=== PATIENT | female | born 1960 | race Two or more races ===

== ENCOUNTER 2023-11-19 19:31 | Inpatient (IN) | payer OTHER, SELFPAY ==
--- NOTE | ~2023-11-19 | CT_ITS ---
EXAMINATION: CT ABDOMEN AND PELVIS WITHOUT CONTRAST CLINICAL INFORMATION: Urinary retention COMPARISON: None available. TECHNIQUE: Multidetector volumetric imaging was performed from the superior aspect of the liver through the pubic symphysis. Sagittal and coronal reformatted images were obtained on the technologist's workstation. This CT examination was performed using dose optimization techniques as appropriate, variously including the following: *Automated exposure control *Adjustment of mA and/or kV according to patient size (this includes techniques or standardized protocols for targeted exams where dose is matched to indication/reason for exam; i.e. extremities or head) *Use of iterative reconstruction technique DLP: 341 mGy-cm FINDINGS: LUNG BASES: Bibasilar atelectasis is present. Basilar calcified granulomas are seen. LIVER, GALLBLADDER, AND BILIARY TREE: The liver is normal in size, shape, and attenuation. No focal hepatic lesion or biliary ductal dilatation is present. The gallbladder is unremarkable with no evidence of radiopaque gallstones, gallbladder wall thickening, or obvious pericholecystic inflammatory changes. PANCREAS: Unremarkable. SPLEEN: Unremarkable. ADRENAL GLANDS: Unremarkable. KIDNEYS AND URETERS: The kidneys are normal in size, shape, and attenuation. No hydronephrosis, hydroureter, or calculi seen. No perinephric stranding. BLADDER: The bladder was only minimally distended. GASTROINTESTINAL TRACT: A large stool is present throughout the colon. There is no evidence of bowel obstruction. Some air-fluid levels are present in the right colon and transverse colon. The small bowel is unremarkable. The appendix is unremarkable. ABDOMINAL WALL: No significant hernia is appreciated. LYMPH NODES: No retroperitoneal lymphadenopathy. VASCULAR: Unremarkable. PELVIC VISCERA: A pessary is present. Uterus appears unremarkable. An abnormal adnexal mass is not seen. No free intraperitoneal fluid is present. OSSEOUS STRUCTURES: There is posterior fixation at L4-L5 with posterior pedicular screws. There is mild grade 1 anterolisthesis at that level. CT/CT abdomen pelvis wo IV con IMPRESSION: 1. No convincing evidence of urinary retention. 2. Bibasilar atelectasis with calcified granulomas. 3. Large stool burden. 4. Pessary. 5. Posterior fixation L4-L5 with grade 1 anterolisthesis. Fleischner guidelines were followed.
--- NOTE | ~2023-11-19 | XR_ITS ---
EXAMINATION: XR ABDOMEN KUB CLINICAL INDICATION: Constipation, check stool burden. COMPARISON: CT abdomen and pelvis of 11/24/2023. TECHNIQUE: AP view of the abdomen. FINDINGS: Large amount of stool in the colon. Nonobstructive bowel gas pattern. Redemonstration of posterior fixation with bilateral rods and pedicular screws at L4-L5. XR/XR abdomen 1V IMPRESSION: Large amount of stool in the colon. Nonobstructive bowel gas pattern.
--- NOTE | ~2023-11-19 | CT_ITS ---
EXAMINATION: CT HEAD WITHOUT CONTRAST CLINICAL INFORMATION: Rapid cognitive decline COMPARISON: None available. TECHNIQUE: Contiguous axial imaging was performed from the skull base to vertex without intravenous administration of contrast. This CT examination was performed using dose optimization techniques as appropriate, variously including the following: *Automated exposure control *Adjustment of mA and/or kV according to patient size (this includes techniques or standardized protocols for targeted exams where dose is matched to indication/reason for exam; i.e. extremities or head) *Use of iterative reconstruction technique DLP: 684 mGy-cm FINDINGS: There is no evidence of acute intracranial hemorrhage or territorial infarction. No abnormal mass effect or midline shift is appreciated. Simental-white differentiation is well preserved. No extra-axial fluid collections. The ventricular system and cortical sulci are prominent, consistent with age-appropriate volume loss. There are areas of low density in the periventricular and subcortical white matter, most consistent with sequelae of microvascular ischemic change. Soft tissues and osseous structures are unremarkable. There are calcifications of the cavernous internal carotid arteries. The visualized paranasal sinuses and mastoid air cells are well aerated. CT/CT head/brain wo IV con IMPRESSION: Chronic microvascular ischemic changes with no CT evidence of acute intracranial abnormality.
[2023-11-19 20:08] VITALS: BP 132/88; PULSE 97; RESP 18; TEMP 36.7; O2SAT 95
[2023-11-19] MEDS: hydrOXYzine HCL 25 MG TABLET PO (23:07)
[2023-11-20] MEDS: Nitrofurantoin Monohyd/M-Cryst 100 MG CAPSULE PO ×3 (00:31→21:04)
[2023-11-20 00:38] VITALS: BMI 17.6
--- NOTE | 2023-11-20 01:03 | PC.ADMIT ---
Addendum entered by Meredith Campuzano RN 11/20/23 01:30: Pt has signed a release for her daughter Lily. Original Note: Pt is a 63 year old female admitted to [facility] via EMS transfer from [facility] ED. Pt was brought into [facility] on a section 12 referred from [facility]. Pt arrived on unit here at 1945 on 11/19/2023. Pt signed a CV with certified technician specialist present. Pt is welsh speaking mainly but does seem to understand a little romansh. Pt medical hx reported are hypercholesterolemia, DVT, asthma. Denies current medical issues. Pt denies tobacco, etoh and substance use. Precipitant to admission is that pt was reporting feeling unsafe in her apt due to feeling that her neighbors are following her and may try to harm her. Pt called her ARRT TECHNOLOGIST and told her she did not feel safe d/t multiple people following her. Pt states that she takes her medications as prescribed. Pt presents as guarded with intermittent eye contact, refusing to sign releases at this time due to not feeling comfortable to do so. Pt did sign one LARRY for speaking with ARRT TECHNOLOGISTAviva but has not signed one for her daughter, who called last night. Pt was dx with a UTI at [facility] and was started on Macrobid BID. Pt has hx of PTSD, Panic D/O, Agoraphobia and bipolar disorder. Provider communications instructor CAW provided orders and med rec complete. Placed on 15 minute safety checks for safety. Pt reports feeling safe here on unit. Pt refused to sign any releases, including valuables and all admission paperwork.
[2023-11-20 07:05] VITALS: BP 117/70; PULSE 81; TEMP 36.4; O2SAT 98
--- NOTE | 2023-11-20 09:00 | P.HPPS_ITS ---
HPI Date of Service: 11/20/23 Chief Complaint: bipolar disorder Sources of Information: patient interviewed, chart reviewed and crisis/core team assessment reviewed HPI Subjective Notes: Russo Warning and Conditional Voluntary Narrative: Patient is a 63 year old woman who presented to [facility] secondary to her sister reporting concerns regarding patient experiencing increased anxiety, paranoia and symptoms of dementia. Per crisis report, pt has been crying uncontrollably, feeling afraid of the noises and voices she has been hearing from her upstairs neighbors, to the point where she will only sleep on her couch and not in her bedroom. She has also lost 20lbs in the past two months. Per her PATHOLOGY LAB TECHNICIAN, there is only one man who lives above patients apartment and she has not heard him making noise. Patient reports the voices increase when her PATHOLOGY LAB TECHNICIAN leaves for the afternoon and she is by herself. She reports the voices tell her she has done things that she has not and she is afraid to talk loudly d/t fear she is being listened to, fear she is being followed and her phone being hacked. Patient does not have a hx of psychiatric inpatient hospitalizations. In 2019, pt was evaluated by [facility] d/t feeling anxious, depressed and paranoid about her neighbors doing illegal things. pt denies any substance abuse. During admission assessment, oral and maxillofacial surgeon and nursing home social worker (Anant) present. Pt reports feeling anxious today; pt stated, I came to the hospital to see a doctor that works in psychiatry. My neighbors who live upstairs are my problem. I feel nervous. At night they throw things and are loud. I stopped using my phone because I think they were hacking it . Pt reports she has been losing weight over the past few months d/t the stress and not being hungry. She reports being medication compliant. denies SI/HI/VH/AH. Past Psychiatric History: [facility] care: Christina Davis Therapist [facility]: Mani Stoner Prescriber: Arleen Zhou at [facility] Pt does not have hx of psychiatric hospitalizations. Medical Evaluation Reviewed: Yes PENDING SALE TO [facility] Family History: Sister: alzheimers Social History: lives alone with her dog in an apartment. . has 3 children. Substance History: denies Trauma History: yes Diagnostics Vital Signs (24Hr): Vital Signs - 24 hr 11/19/23 20:08 11/20/23 07:05 Temperature 98.0 F 97.5 F Pulse Rate 97 81 Respiratory Rate 18 Blood Pressure 132/88 117/70 Pulse Oximetry 95 98 Oxygen Delivery Method Room Air Room Air BMI result Body Mass Index 17.6 Meds/Allergies Meds Home Medications Medication Instructions Recorded Confirmed Type aspirin 81 mg tablet,delayed 81 mg PO DAILY 11/19/23 11/19/23 History release bupropion HCl 200 mg tablet,12 hr 200 mg PO BID 11/19/23 11/19/23 History sustained-release cholecalciferol (vitamin D3) 50 50 mcg PO DAILY 11/19/23 11/19/23 History mcg (2,000 unit) capsule (Vitamin D3) hydroxyzine HCl 25 mg tablet 25 mg PO Q6H PRN anxiety 11/19/23 11/19/23 History quetiapine 25 mg tablet 25 - 50 mg PO BEDTIME PRN Anxiety 11/19/23 11/19/23 History Allergies Allergies Allergy/AdvReac Type Severity Reaction Status Date / Time No Known Allergies Allergy Verified 11/19/23 16:44 Mental Status Exam Mental Status Exam Narrative: Pt behavior is cooperative, friendly and calm; dressed in casual attire; mood is described as anxious ; eye contact appropriate; Speech is normal rate, volume and prosody and not pressured; paranoid, delusional; denies SI/HI/VH/AH. Assessment & Plan Assessment & Plan (1) Psychosis: Status: Acute Code(s): F29 - Unspecified psychosis not due to a substance or known physiological condition (2) PTSD (post-traumatic stress disorder): Status: Acute Code(s): F43.10 - Post-traumatic stress disorder, unspecified Plan Patient is a 63 year old woman who presented to [facility] secondary to her sister reporting concerns regarding patient experiencing increased anxiety, paranoia and symptoms of dementia. Plan: CV 15 minute safety checks continue home medications decrease Wellbutrin to 150mg PO daily Start: Risperidal 0.5mg PO BID obtain collateral discharge planning Patient educated on: diagnosis and medication risk/benefits Informed Consent: understands and further education needed Reason for continued inpatient stay Substantial Risk for: med/psych decompensation Statement Statement: I have reviewed the history and physical and performed a pertinent examination on my patient. No changes have occurred unless specified. If the History and Physical was not performed prior to admission, the Hospitalist's service will be consulted for completing the admission physical. Time Spent With Patient Time: Total time managing care of this patient today _60___ minutes.
[2023-11-20] MEDS: buPROPion HCL 100 MG TABLET 200 MG PO (09:33)
[2023-11-20] MEDS: Cholecalciferol (Vitamin D3) 25 MCG TABLET 50 MCG PO (09:33)
[2023-11-20] MEDS: Aspirin 81 MG TAB.CHEW PO (09:33)
--- NOTE | 2023-11-20 11:22 | HO.PM.IMCN ---
History of Present Illness Data of Consult Service Date: 11/20/23 Primary Care Provider: Janneth ORTIZ Reason for consult: Admission H&P Pt is a 63-year-old Kenyan-speaking female with a PMH significant for?cystocele with pessary in place, hx of TIA, osteoarthritis, chronic back pain, and bipolar disorder who is admitted to psychiatry unit for increasing paranoia and delusional behavior. Patient apparently does not feel safe in her current living situation as she states her neighbors upstairs are following her and trying to harm her. Patient placed on section 12. Medical consult for admission H&P. ?Patient denies any current acute medical complaints at this time. States overall she is doing well. Denies chest pain/pressure, palpitations. No shortness of breath. Denies fever, chills, nausea, vomiting, abdominal pain. Patient states she has been taking all of her home meds as prescribed. Vital signs stable. Review of Systems Review of Systems: Patient denies any acute medical complaints at this time REPLACED BY [facility] Medical History (Updated 11/20/23 @ 18:43 by LUPILLO Guthrie) TIA (transient ischemic attack) Bipolar disorder Social History Household Members: Other Household Members Other:: dog Housing: Apartment Patient Tobacco Use Status: Never used Tobacco Use of substances other than those prescribed or required for medical reasons: No Currently Displaying Signs/Symptoms of Drug Intoxication Withdrawal: No Advance Directives: No Advance Directives Information Provided: No Do you have thoughts of harming others: None Do you have a plan to hurt others: No Plan Recently lost weight without trying: Yes How much weight loss: 14-23 pounds Eating poorly because of decreased appetite: Yes Nutrition screen score: 5 Nutrition Risks: Poor intake 0-25% >4 days Patient : No : No service: No Sexual orientation: Straight/Heterosexual Meds Allergies Allergy/AdvReac Type Severity Reaction Status Date / Time No Known Allergies Allergy Verified 11/19/23 16:44 Active Medications: Current Medications Acetaminophen (Acetaminophen 325 Mg Tablet) 650 mg PO Q6H PRN PRN Reason: Headache/Pain Mild Scale (1-3) Al Hydroxide/Mg Hydroxide (Magnesium Hydrox/Alum Hydrox 30 Ml Oral.Susp) 30 ml PO Q6H PRN PRN Reason: Heartburn/Nausea Aspirin (Aspirin 81 Mg Tab.Chew) 81 mg PO DAILY PADDY Last Admin: 11/20/23 09:33 Dose: 81 mg Bupropion HCl (Bupropion Hcl 100 Mg Tablet) 200 mg PO BID [facility] Last Admin: 11/20/23 09:33 Dose: 200 mg Hydroxyzine HCl (Hydroxyzine Hcl 25 Mg Tablet) 25 mg PO Q6H PRN PRN Reason: Anxiety Last Admin: 11/19/23 23:07 Dose: 25 mg Magnesium Hydroxide (Milk Of Magnesia 30 Ml Oral.Susp) 30 ml PO DAILY PRN PRN Reason: Constipation Nitrofurantoin Macrocrystals (Nitrofurantoin Monohyd/M-Cryst 100 Mg Capsule) 100 mg PO BID [facility] Last Admin: 11/20/23 09:34 Dose: 100 mg Quetiapine Fumarate (Quetiapine Fumarate 25 Mg Tablet) 25 mg PO BEDTIME PRN PRN Reason: sleep Quetiapine Fumarate (Quetiapine Fumarate 50 Mg Tablet) 50 mg PO BEDTIME PRN PRN Reason: sleep Trazodone HCl (Trazodone Hcl 50 Mg Tablet) 50 mg PO BEDTIME MRX1 PRN PRN Reason: Insomnia Vitamin D (Cholecalciferol (Vitamin D3) 25 Mcg Tablet) 50 mcg PO DAILY [facility] Last Admin: 11/20/23 09:33 Dose: 50 mcg Home Medications Medication Instructions Recorded Confirmed Last Taken Type aspirin 81 mg tablet,delayed 81 mg PO DAILY 11/19/23 11/19/23 Unknown History release bupropion HCl 200 mg tablet,12 hr 200 mg PO BID 11/19/23 11/19/23 Unknown History sustained-release cholecalciferol (vitamin D3) 50 50 mcg PO DAILY 11/19/23 11/19/23 Unknown History mcg (2,000 unit) capsule (Vitamin D3) hydroxyzine HCl 25 mg tablet 25 mg PO Q6H PRN anxiety 11/19/23 11/19/23 Unknown History quetiapine 25 mg tablet 25 - 50 mg PO BEDTIME PRN Anxiety 11/19/23 11/19/23 Unknown History Physical Exam Vital Signs and Narrative: Vital Signs: Last Vital Signs Temp 97.5 F 11/20/23 07:05 Pulse 81 11/20/23 07:05 Resp 18 11/19/23 20:08 BP 117/70 11/20/23 07:05 Pulse Ox 98 11/20/23 07:05 O2 Del Method Room Air 11/20/23 07:05 BMI result Body Mass Index 17.6 General: AOx3, no acute distress Resp: CTA bilaterally CVS: S1, S2, RRR GI: +BS, NT, no distention Skin: Warm, dry Neuro: Cranial nerves II-XII grossly intact bilaterally. Motor grossly intact bilaterally Extremities: No edema Psych: Pleasant, cooperative Assessment and Plan (1) Medical clearance for psychiatric admission: Status: Acute Plan Pt is a 63-year-old Kenyan-speaking female with a PMH significant for?cystocele with pessary in place, hx of TIA, osteoarthritis, chronic back pain, and bipolar disorder who is admitted to [facility] psychiatry unit for increasing paranoia and delusional behavior. Patient apparently does not feel safe in her current living situation as she states her neighbors upstairs are following her and trying to harm her. Patient placed on section 12. Medical consult for admission H&P. ?Patient denies any current acute medical complaints at this time. Mood disorder Plan as per Psychiatry Hx of TIA Continue aspirin Pt otherwise has no acute medical complaints or chronic medical conditions. Thank you for allowing us to participate in the care of this patient. Signing off at this time. Please re-consult if any acute complaints or issues arise.
--- NOTE | 2023-11-20 13:50 | MHC.CLN ---
NUTRITION CONSULT FOR WEIGHT LOSS. VISITED WITH PATIENT ON THE UNIT. SAID THAT SHE WEIGHED 95# AND NOW WEIGHS 93#. WEIGHT UPON ADMISSION=96#. BMI=17.6, UNDERWEIGHT. REPORTS THAT IS EATING VERY WELL HERE. NO ADDITIONAL NUTRITION INTERVENTIONS AT THIS TIME.
[2023-11-20] MEDS: risperiDONE 0.5 MG TABLET PO ×2 (15:56→21:04)
[2023-11-20 19:15] VITALS: BP 107/75; PULSE 99; RESP 14; TEMP 36.3; O2SAT 98
[2023-11-20] MEDS: traZODone HCL 50 MG TABLET PO (22:15)
[2023-11-21 08:00] VITALS: BP 107/67; PULSE 82; RESP 14; TEMP 37.3; O2SAT 96
[2023-11-21] MEDS: Aspirin 81 MG TAB.CHEW PO (08:14)
[2023-11-21] MEDS: buPROPion HCL 75 MG TABLET 150 MG PO (08:15)
[2023-11-21] MEDS: Cholecalciferol (Vitamin D3) 25 MCG TABLET 50 MCG PO (08:15)
[2023-11-21] MEDS: risperiDONE 0.5 MG TABLET PO ×2 (08:15→20:09)
[2023-11-21] MEDS: Nitrofurantoin Monohyd/M-Cryst 100 MG CAPSULE PO ×2 (08:15→20:09)
--- NOTE | 2023-11-21 12:06 | P.PNPSI_ITS ---
Subjective Subjective Date of Service: 11/21/23 Reason For Visit: bipolar disorder Subjective Notes: Conditional Voluntary Interim History: The nursing staff reported the patient had been compliant with treatment she slept 7 hours but needed p.r.n. trazodone at night. She remains anxious with constricted affect. She denies auditory hallucinations or delusions at this moment. On interview the patient denies new symptoms denies side effects with current medication. Mental Status Exam Mental Status Exam Patient Appearance: Well Grooomed Patient Orientation: Person Level of Consciousness: Awake Patient Behavior: Guarded and Passive Mood Description: Calm Affect Description: Constricted Patient Cognition Impaired: Yes Ability to Follow Directions: Good Speech Pattern: Clear Hallucinations: None Delusions: Not Present Thought Process: Distracted and Linear Thought Content: positive for Hubert and positive for Poverty of Content Judgement: Fair Diagnostics Vital Signs (24Hr): Vital Signs - 24 hr 11/20/23 19:15 11/21/23 08:00 Temperature 97.4 F 99.1 F Pulse Rate 99 82 Respiratory Rate 14 14 Blood Pressure 107/75 107/67 Pulse Oximetry 98 96 Oxygen Delivery Method Room Air Room Air BMI result Body Mass Index 17.6 Medications Medications Current Medications Acetaminophen (Acetaminophen 325 Mg Tablet) 650 mg PO Q6H PRN PRN Reason: Headache/Pain Mild Scale (1-3) Al Hydroxide/Mg Hydroxide (Magnesium Hydrox/Alum Hydrox 30 Ml Oral.Susp) 30 ml PO Q6H PRN PRN Reason: Heartburn/Nausea Aspirin (Aspirin 81 Mg Tab.Chew) 81 mg PO DAILY [facility] Last Admin: 11/21/23 08:14 Dose: 81 mg Bupropion HCl (Bupropion Hcl 75 Mg Tablet) 150 mg PO DAILY [facility] Last Admin: 11/21/23 08:15 Dose: 150 mg Hydroxyzine HCl (Hydroxyzine Hcl 25 Mg Tablet) 25 mg PO Q6H PRN PRN Reason: Anxiety Last Admin: 11/19/23 23:07 Dose: 25 mg Magnesium Hydroxide (Milk Of Magnesia 30 Ml Oral.Susp) 30 ml PO DAILY PRN PRN Reason: Constipation Nitrofurantoin Macrocrystals (Nitrofurantoin Monohyd/M-Cryst 100 Mg Capsule) 100 mg PO BID [facility] Last Admin: 11/21/23 08:15 Dose: 100 mg Quetiapine Fumarate (Quetiapine Fumarate 25 Mg Tablet) 25 mg PO BEDTIME PRN PRN Reason: sleep Risperidone (Risperidone 0.5 Mg Tablet) 0.5 mg PO BID [facility] Last Admin: 11/21/23 08:15 Dose: 0.5 mg Trazodone HCl (Trazodone Hcl 50 Mg Tablet) 50 mg PO BEDTIME MRX1 PRN PRN Reason: Insomnia Last Admin: 11/20/23 22:15 Dose: 50 mg Vitamin D (Cholecalciferol (Vitamin D3) 25 Mcg Tablet) 50 mcg PO DAILY PADDY Last Admin: 11/21/23 08:15 Dose: 50 mcg Allergies Allergies Allergy/AdvReac Type Severity Reaction Status Date / Time No Known Allergies Allergy Verified 11/19/23 16:44 Assessment & Plan Assessment & Plan (1) Medical clearance for psychiatric admission: Status: Acute Code(s): Z00.8 - Encounter for other general examination Plan Pt is a 63-year-old Grenadian-speaking female with a PMH significant for?cystocele with pessary in place, hx of TIA, osteoarthritis, chronic back pain, and bipolar disorder who is admitted to [facility] psychiatry unit for increasing paranoia and delusional behavior. Patient apparently does not feel safe in her current living situation as she states her neighbors upstairs are following her and trying to harm her. Patient placed on section 12. Medical consult for admission H&P. ?Patient denies any current acute medical complaints at this time. Mood disorder Plan as per Psychiatry Hx of TIA Continue aspirin Pt otherwise has no acute medical complaints or chronic medical conditions. Thank you for allowing us to participate in the care of this patient. Signing off at this time. Please re-consult if any acute complaints or issues arise. Plan 1. Keep same treatment Reason for continued inpatient stay Substantial Risk for: inability to function, rapid decompensation and med/psych decompensation Time Spent With Patient Time: Total time managing care of this patient today __20__ minutes.
[2023-11-21] MEDS: Acetaminophen 325 MG TABLET 650 MG PO (14:53)
[2023-11-21 20:00] VITALS: BP 125/70; PULSE 93; RESP 16; TEMP 36.5; O2SAT 99
[2023-11-21] MEDS: traZODone HCL 50 MG TABLET PO ×2 (20:09→22:44)
[2023-11-22 08:00] VITALS: BP 114/69; PULSE 94; RESP 16; TEMP 36.5; O2SAT 97
[2023-11-22] MEDS: Nitrofurantoin Monohyd/M-Cryst 100 MG CAPSULE PO ×2 (08:51→21:07)
[2023-11-22] MEDS: Cholecalciferol (Vitamin D3) 25 MCG TABLET 50 MCG PO (08:51)
[2023-11-22] MEDS: buPROPion HCL 75 MG TABLET 150 MG PO (08:51)
[2023-11-22] MEDS: Aspirin 81 MG TAB.CHEW PO (08:52)
[2023-11-22] MEDS: risperiDONE 0.5 MG TABLET PO ×2 (08:52→21:07)
[2023-11-22] MEDS: Acetaminophen 325 MG TABLET 650 MG PO (09:09)
--- NOTE | 2023-11-22 14:49 | P.PNPSI_ITS ---
Subjective Subjective Date of Service: 11/22/23 Reason For Visit: bipolar disorder Subjective Notes: Conditional Voluntary Interim History: The nursing staff reported the patient had been flat but visible in the unit very pleasant calm and cooperative. She had been guarded but some improvement on paranoia, it was obvious that she has some delayed responses. Compliant with treatment. On interview the patient denies new symptoms looks internally preoccupied. Mental Status Exam Mental Status Exam Patient Appearance: Appropriate Patient Orientation: Person and Situation Level of Consciousness: Awake and Appropriate Patient Behavior: Guarded and Passive Mood Description: Withdrawn Affect Description: Constricted Patient Cognition Impaired: Yes Ability to Follow Directions: Good Speech Pattern: Clear Hallucinations: None Delusions: Not Present Thought Process: Distracted and Slowed Thinking Thought Content: positive for [place] and positive for Poverty of Content Judgement: Fair Diagnostics Vital Signs (24Hr): Vital Signs - 24 hr 11/21/23 20:00 11/22/23 08:00 Temperature 97.7 F 97.7 F Pulse Rate 93 94 Respiratory Rate 16 16 Blood Pressure 125/70 114/69 Pulse Oximetry 99 97 Oxygen Delivery Method Room Air Room Air BMI result Body Mass Index 17.6 Medications Medications Current Medications Acetaminophen (Acetaminophen 325 Mg Tablet) 650 mg PO Q6H PRN PRN Reason: Headache/Pain Mild Scale (1-3) Last Admin: 11/22/23 09:09 Dose: 650 mg Al Hydroxide/Mg Hydroxide (Magnesium Hydrox/Alum Hydrox 30 Ml Oral.Susp) 30 ml PO Q6H PRN PRN Reason: Heartburn/Nausea Aspirin (Aspirin 81 Mg Tab.Chew) 81 mg PO DAILY [facility] Last Admin: 11/22/23 08:52 Dose: 81 mg Bupropion HCl (Bupropion Hcl 75 Mg Tablet) 150 mg PO DAILY [facility] Last Admin: 11/22/23 08:51 Dose: 150 mg Hydroxyzine HCl (Hydroxyzine Hcl 25 Mg Tablet) 25 mg PO Q6H PRN PRN Reason: Anxiety Last Admin: 11/19/23 23:07 Dose: 25 mg Magnesium Hydroxide (Milk Of Magnesia 30 Ml Oral.Susp) 30 ml PO DAILY PRN PRN Reason: Constipation Nitrofurantoin Macrocrystals (Nitrofurantoin Monohyd/M-Cryst 100 Mg Capsule) 100 mg PO BID [facility] Last Admin: 11/22/23 08:51 Dose: 100 mg Quetiapine Fumarate (Quetiapine Fumarate 25 Mg Tablet) 25 mg PO BEDTIME PRN PRN Reason: sleep Risperidone (Risperidone 0.5 Mg Tablet) 0.5 mg PO BID [facility] Last Admin: 11/22/23 08:52 Dose: 0.5 mg Trazodone HCl (Trazodone Hcl 50 Mg Tablet) 50 mg PO BEDTIME MRX1 PRN PRN Reason: Insomnia Last Admin: 11/21/23 22:44 Dose: 50 mg Vitamin D (Cholecalciferol (Vitamin D3) 25 Mcg Tablet) 50 mcg PO DAILY [facility] Last Admin: 11/22/23 08:51 Dose: 50 mcg Allergies Allergies Allergy/AdvReac Type Severity Reaction Status Date / Time No Known Allergies Allergy Verified 11/19/23 16:44 Assessment & Plan Assessment & Plan (1) Medical clearance for psychiatric admission: Status: Acute Code(s): Z00.8 - Encounter for other general examination Plan Pt is a 63-year-old Yoruba-speaking female with a PMH significant for?cystocele with pessary in place, hx of TIA, osteoarthritis, chronic back pain, and bipolar disorder who is admitted to [facility] psychiatry unit for increasing paranoia and delu sional behavior. Patient apparently does not feel safe in her current living situation as she states her neighbors upstairs are following her and trying to harm her. Patient placed on section 12. Medical consult for admission H&P. ?Patient denies any current acute medical complaints at this time. Mood disorder Plan as per Psychiatry Hx of TIA Continue aspirin Pt otherwise has no acute medical complaints or chronic medical conditions. Thank you for allowing us to participate in the care of this patient. Signing off at this time. Please re-consult if any acute complaints or issues arise. Plan 1. Keep same treatment Reason for continued inpatient stay Substantial Risk for: inability to function, rapid decompensation and med/psych decompensation Time Spent With Patient Time: Total time managing care of this patient today __20__ minutes.
[2023-11-22 19:58] VITALS: BP 104/71; PULSE 90; TEMP 36.3; O2SAT 100
[2023-11-22] MEDS: hydrOXYzine HCL 25 MG TABLET PO (21:07)
[2023-11-22] MEDS: traZODone HCL 50 MG TABLET PO (22:00)
[2023-11-23 07:26] VITALS: BP 127/70; PULSE 80; RESP 16; TEMP 36.2; O2SAT 98
[2023-11-23] MEDS: buPROPion HCL 75 MG TABLET 150 MG PO (08:43)
[2023-11-23] MEDS: Cholecalciferol (Vitamin D3) 25 MCG TABLET 50 MCG PO (08:43)
[2023-11-23] MEDS: risperiDONE 0.5 MG TABLET PO ×2 (08:44→21:18)
[2023-11-23] MEDS: Aspirin 81 MG TAB.CHEW PO (08:44)
[2023-11-23] MEDS: Nitrofurantoin Monohyd/M-Cryst 100 MG CAPSULE PO ×2 (08:44→21:18)
[2023-11-23] MEDS: bisacodyL 5 MG TABLET.DR 10 MG PO (16:59)
--- NOTE | 2023-11-23 18:56 | P.PNPSI_ITS ---
Subjective Subjective Date of Service: 11/23/23 Reason For Visit: bipolar disorder Interim History: seen with certified court/medical interpreter. c/o suprapubic pain. anxiety and depression improving. c/o constipation. agreeable to recheck UA C&S and to have dulcolax PRN and x 1 now. continues with paranoid delusions regarding her upstairs neighbors. per staff, dep/anx 2. social on eves. safe. h/o TIA and dementia. slept about 7 hours. Mental Status Exam Mental Status Exam Narrative: Pt behavior is cooperative, friendly and calm; dressed in casual attire; mood is described as anxious ; eye contact appropriate; Speech is normal rate, volume and prosody and not pressured; paranoid, delusional; denies SI/HI/VH/AH. Diagnostics Vital Signs (24Hr): Vital Signs - 24 hr 11/22/23 19:58 11/23/23 07:26 Temperature 97.4 F 97.1 F Pulse Rate 90 80 Respiratory Rate 16 Blood Pressure 104/71 127/70 Pulse Oximetry 100 98 Oxygen Delivery Method Room Air Room Air BMI result Body Mass Index 17.6 Medications Medications Current Medications Acetaminophen (Acetaminophen 325 Mg Tablet) 650 mg PO Q6H PRN PRN Reason: Headache/Pain Mild Scale (1-3) Last Admin: 11/22/23 09:09 Dose: 650 mg Al Hydroxide/Mg Hydroxide (Magnesium Hydrox/Alum Hydrox 30 Ml Oral.Susp) 30 ml PO Q6H PRN PRN Reason: Heartburn/Nausea Aspirin (Aspirin 81 Mg Tab.Chew) 81 mg PO DAILY [facility] Last Admin: 11/23/23 08:44 Dose: 81 mg Bisacodyl (Bisacodyl 5 Mg Tablet.Dr) 10 mg PO DAILY PRN PRN Reason: Constipation Bupropion HCl (Bupropion Hcl 75 Mg Tablet) 150 mg PO DAILY [facility] Last Admin: 11/23/23 08:43 Dose: 150 mg Hydroxyzine HCl (Hydroxyzine Hcl 25 Mg Tablet) 25 mg PO Q6H PRN PRN Reason: Anxiety Last Admin: 11/22/23 21:07 Dose: 25 mg Magnesium Hydroxide (Milk Of Magnesia 30 Ml Oral.Susp) 30 ml PO DAILY PRN PRN Reason: Constipation Nitrofurantoin Macrocrystals (Nitrofurantoin Monohyd/M-Cryst 100 Mg Capsule) 100 mg PO BID [facility] Last Admin: 11/23/23 08:44 Dose: 100 mg Quetiapine Fumarate (Quetiapine Fumarate 25 Mg Tablet) 25 mg PO BEDTIME PRN PRN Reason: sleep Risperidone (Risperidone 0.5 Mg Tablet) 0.5 mg PO BID [facility] Last Admin: 11/23/23 08:44 Dose: 0.5 mg Trazodone HCl (Trazodone Hcl 50 Mg Tablet) 50 mg PO BEDTIME MRX1 PRN PRN Reason: Insomnia Last Admin: 11/22/23 22:00 Dose: 50 mg Vitamin D (Cholecalciferol (Vitamin D3) 25 Mcg Tablet) 50 mcg PO DAILY [facility] Last Admin: 11/23/23 08:43 Dose: 50 mcg Allergies Allergies Allergy/AdvReac Type Severity Reaction Status Date / Time No Known Allergies Allergy Verified 11/19/23 16:44 Assessment & Plan Assessment & Plan (1) Medical clearance for psychiatric admission: Status: Acute Code(s): Z00.8 - Encounter for other general examination Plan Pt is a 63-year-old [place]ib[place]ian-speaking female with a PMH significant for?cystocele with pessary in place, hx of TIA, osteoarthritis, chronic back pain, and bipolar disorder who is admitted to [facility] psychiatry unit for increasing paranoia and delusional behavior. Patient apparently does not feel safe in her current living situation as she states her neighbors upstairs are following her and trying to harm her. Patient placed on section 12. Medical consult for admission H&P. ?Patient denies any current acute medical complaints at this time. Patient is a 63 year old woman who presented to [facility] secondary to her sister reporting concerns regarding patient experiencing increased anxiety, paranoia and symptoms of dementia. Plan: CV 15 minute safety checks continue home medications decrease Wellbutrin to 150mg PO daily Start: Risperidal 0.5mg PO BID 11/23: remains with paranoid delusions. c/o suprapubic pain and constipation. dulcolax daily PRN and new UA C&S ordered. T/C increase in risperidone dosing. Reason for continued inpatient stay Substantial Risk for: inability to function Time Spent With Patient Time: Total time managing care of this patient today _35___ minutes.
[2023-11-23 19:30] VITALS: BP 117/64; PULSE 89; RESP 16; TEMP 36.8; O2SAT 98
[2023-11-23] MEDS: Acetaminophen 325 MG TABLET 650 MG PO (21:18)
[2023-11-23] MEDS: traZODone HCL 50 MG TABLET PO (22:18)
[2023-11-24 07:47] VITALS: BP 126/78; PULSE 84; RESP 18; TEMP 36.4; O2SAT 97
[2023-11-24] MEDS: Acetaminophen 325 MG TABLET 650 MG PO (08:47)
[2023-11-24] MEDS: buPROPion HCL 75 MG TABLET 150 MG PO (08:48)
[2023-11-24] MEDS: Aspirin 81 MG TAB.CHEW PO (08:48)
[2023-11-24] MEDS: Cholecalciferol (Vitamin D3) 25 MCG TABLET 50 MCG PO (08:48)
[2023-11-24] MEDS: risperiDONE 0.5 MG TABLET PO (08:48)
[2023-11-24] MEDS: Nitrofurantoin Monohyd/M-Cryst 100 MG CAPSULE PO ×2 (08:48→21:03)
[2023-11-24] MEDS: bisacodyL 5 MG TABLET.DR 10 MG PO (10:00)
--- NOTE | 2023-11-24 15:07 | HO.PSYCHPN ---
Subjective Subjective Date of Service: 11/24/23 Reason For Visit: bipolar disorder Interim History: calm, cooperative. c/o back pain, abd pain. reports current pessary was placed last summer, it replaced a previous pessary. abd pain worse than yesterday. back pain is associated with post-surgery status. agreeable to lidocaine patch for back. per staff, denied dep. anxiety 2-3. taking medications. had trazodone at 2300. slept about 7 hours. MoCA done 11/21, scored 21-22 with notably poor executive fxn. Mental Status Exam Mental Status Exam Narrative: Pt behavior is cooperative, friendly and calm; dressed in casual attire; mood is described as good ; eye contact appropriate; Speech is normal rate, volume and prosody and not pressured; paranoid, delusional; no SI/HI/VH/AH expressed. Diagnostics Vital Signs (24Hr): Vital Signs - 24 hr 11/23/23 19:30 11/24/23 07:47 Temperature 98.3 F 97.5 F Pulse Rate 89 84 Respiratory Rate 16 18 Blood Pressure 117/64 126/78 Pulse Oximetry 98 97 Oxygen Delivery Method Room Air Room Air BMI result Body Mass Index 17.6 Medications Medications Current Medications Acetaminophen (Acetaminophen 325 Mg Tablet) 975 mg PO Q6H PRN PRN Reason: Headache/Pain Mild Scale (1-3) Al Hydroxide/Mg Hydroxide (Magnesium Hydrox/Alum Hydrox 30 Ml Oral.Susp) 30 ml PO Q6H PRN PRN Reason: Heartburn/Nausea Aspirin (Aspirin 81 Mg Tab.Chew) 81 mg PO DAILY [facility] Last Admin: 11/24/23 08:48 Dose: 81 mg Bisacodyl (Bisacodyl 5 Mg Tablet.Dr) 10 mg PO DAILY PRN PRN Reason: Constipation Last Admin: 11/24/23 10:00 Dose: 10 mg Bupropion HCl (Bupropion Hcl 75 Mg Tablet) 150 mg PO DAILY [facility] Last Admin: 11/24/23 08:48 Dose: 150 mg Hydroxyzine HCl (Hydroxyzine Hcl 25 Mg Tablet) 25 mg PO Q6H PRN PRN Reason: Anxiety Last Admin: 11/22/23 21:07 Dose: 25 mg Magnesium Hydroxide (Milk Of Magnesia 30 Ml Oral.Susp) 30 ml PO DAILY PRN PRN Reason: Constipation Nitrofurantoin Macrocrystals (Nitrofurantoin Monohyd/M-Cryst 100 Mg Capsule) 100 mg PO BID [facility] Last Admin: 11/24/23 08:48 Dose: 100 mg Quetiapine Fumarate (Quetiapine Fumarate 25 Mg Tablet) 25 mg PO BEDTIME PRN PRN Reason: sleep Risperidone (Risperidone 0.5 Mg Tablet) 0.5 mg PO BID [facility] Last Admin: 11/24/23 08:48 Dose: 0.5 mg Trazodone HCl (Trazodone Hcl 50 Mg Tablet) 50 mg PO BEDTIME MRX1 PRN PRN Reason: Insomnia Last Admin: 11/23/23 22:18 Dose: 50 mg Vitamin D (Cholecalciferol (Vitamin D3) 25 Mcg Tablet) 50 mcg PO DAILY [facility] Last Admin: 11/24/23 08:48 Dose: 50 mcg Allergies Allergies Allergy/AdvReac Type Severity Reaction Status Date / Time No Known Allergies Allergy Verified 11/19/23 16:44 Assessment & Plan Assessment & Plan (1) Medical clearance for psychiatric admission: Status: Acute Code(s): Z00.8 - Encounter for other general examination Plan Pt is a 63-year-old Ukrainian-speaking female with a PMH significant for?cystocele with pessary in place, hx of TIA, osteoarthritis, chronic back pain, and bipolar disorder who is admitted to psychiatry unit for increasing paranoia and delusional behavior. Patient apparently does not feel safe in her current living situation as she states her neighbors upstairs are following her and trying to harm her. Patient placed on section 12. Medical consult for admission H&P. ?Patient denies any current acute medical complaints at this time. Patient is a 63 year old woman who presented to [facility] secondary to her sister reporting concerns regarding patient experiencing increased anxiety, paranoia and symptoms of dementia. Plan: CV 15 minute safety checks continue home medications decrease Wellbutrin to 150mg PO daily Start: Risperidal 0.5mg PO BID 11/23: remains with paranoid delusions. c/o suprapubic pain and constipation. dulcolax daily PRN and new UA C&S ordered. T/C increase in risperidone dosing. 12/22: suprapubic pain worse today, no BM after dulcolax x 2. low back pain, post-surgical - start lidocaine patch. Custodial Manager consult for potential pessary complications. increase risperidone from 0.5 BID to 0.5/1. Reason for continued inpatient stay Substantial Risk for: inability to function and rapid decompensation Time Spent With Patient Time: Total time managing care of this patient today __35__ minutes.
[2023-11-24] MEDS: Lidocaine 4 % Patch ADH..PATCH 1 PATCH TRANSDERMA (16:35)
[2023-11-24] MEDS: Magnesium Hydrox/Alum Hydrox 30 ML ORAL.SUSP PO (17:53)
--- NOTE | 2023-11-24 18:49 | P.EN_ITS ---
Event Note Date of Service: 11/24/23 Event Note: 63 year old female with relevant past medical history including cystocele s/p vaginal pessary admitted to Psychiatry with consult placed hospitalist service due to severe abdominal pain, flank pain, and urinary retention. According to nursing staff in the patient, she was able to urinate this morning and had some urinary incontinence noted in pad but no significant urinary output since this morning. Bladder scan was requested showing 298 cc of urine in the bladder and patient reports no urge to urinate. She states that since this morning she has had suprapubic pain initially rated as an 9/10, currently rated as a 4/10. She has also had bilateral flank pain. Does have a history of chronic low back pain s/p fixation at L4-L5. Describes the pain as sharp/stabbing but nonradiating at this time. Denies any dysuria, hematuria, increased urinary frequency. Reports she does have chronic urinary incontinence at baseline. She has been afebrile, vital signs stable. She was diagnosed with a urinary tract infection at [facility] ED from where she was transferred and was started on Macrobid. Urine culture was reviewed which grew E coli sensitive to Macrobid. Last dose due is tonight. Labs were repeated with WBC 14.8. Renal function and electrolyte levels normal. CRP and ESR within normal limits. UA/UC has been ordered but again patient has been unable to void, straight cath order is pending. CT abdomen/pelvis was ordered to evaluate for any other causes of urinary retention including obstruction. There are no obstructive stones noted or any convincing evidence of urinary retention. However there is large stool burden noted as well as pessary in place. Plan: -no evidence of convincing urinary obstruction or bowel obstruction -Recommend salty miralax daily and senna nightly for stool burden. Continue prn medications. Limit the use of anticholinergic medications at much as possible. Encourage OOB -Use fleets enema prn if needed -Awaiting straight cath results for ua/uc. Last dose macrobid tonight. Given suprapubic pain, r/out ongoing infection given wbc 14.5. No sepsis. Time Spent With Patient Time: Total time managing care of this patient today ____ minutes.
[2023-11-24 19:28] LABS: MANUAL DIFF FLAG NO
[2023-11-24 19:37] LABS: Basophils Percent Auto 0.2 % (0-2); Eosinophils Percent Auto 0.1 % (0-4); Hematocrit 40.8 % (37.0-47.0); Hemoglobin 13.3 g/dl (12.0-16.0); Imm Gran Abs Auto 0.05 X10*3/uL (0.00-0.03); Imm Gran Pct Auto 0.3 % (0.0-0.4); Lymphocytes Absolute Auto 0.9 X10*3/uL (1.2-4.9); Lymphocytes Percent Auto 6.1 % (20-40); Mean Corpuscular HGB Conc 32.6 g/dl (31.0-35.0); Mean Corpuscular Hemoglobin 26.9 pg (27.0-33.0); Mean Corpuscular Volume 82.6 fL (80.0-98.0); Mean Platelet Volume 10.9 fL (9.4-12.3); Monocytes Absolute Auto 0.7 X10*3/uL (0.1-1.2); Monocytes Percent Auto 4.7 % (2-11); Neutrophils Absolute Auto 13.1 x10*3/uL (2.0-8.3); Neutrophils Percent Auto 88.6 % (45-73); Platelet Count 218 X10*3/uL (160-400); Red Blood Count 4.94 X10*6/uL (4.20-5.50); Red Cell Distribution Width 13.2 % (11.0-16.0); White Blood Count 14.8 X10*3/uL (4.8-10.8)
[2023-11-24 19:42] LABS: Anion Gap 12 (12-20); Blood Urea Nitrogen 19 mg/dL (9-16); C Reactive Protein 0.11 mg/dL (< or = 0.50); Calcium 10.4 mg/dL (8.4-10.2); Carbon Dioxide 29 mmol/L (22-29); Chloride 101 mmol/L (96-108); Creatinine Clr Calc Pharmacy 54.3; Estimated Glomerular Filt Rate > 60; Glucose Random 159 mg/dL (60-115); Potassium 4.5 mmol/L (3.3-5.1); Sodium 137 mmol/L (135-145)
[2023-11-24 19:55] VITALS: BP 135/78; PULSE 77; RESP 16; TEMP 36.4; O2SAT 100
[2023-11-24 20:40] LABS: Erythrocyte Sedimentation Rate 12 MM/HR (0-20)
[2023-11-24] MEDS: risperiDONE 1 MG TABLET PO (21:03)
[2023-11-24] MEDS: traZODone HCL 50 MG TABLET PO (22:45)
[2023-11-25 00:37] LABS: Appearance Urine Clear; Color Urine Dark Yellow; Glucose Urine UA Negative (Negative); Leukocyte Esterase Urine Negative (Negative); Nitrite Urine Negative (Negative); PH 5.5 (5.0-9.0); Specific Gravity - Urine 1.025 (1.005-1.025); Urine Blood Negative (Negative); Urine Ketones Negative (Negative); Urine Protein Negative (Neg-Trace)
[2023-11-25 07:21] VITALS: BP 113/61; PULSE 78; RESP 12; TEMP 36.2; O2SAT 97
[2023-11-25] MEDS: risperiDONE 0.5 MG TABLET PO (08:09)
[2023-11-25] MEDS: Cholecalciferol (Vitamin D3) 25 MCG TABLET 50 MCG PO (08:09)
[2023-11-25] MEDS: buPROPion HCL 75 MG TABLET 150 MG PO (08:09)
[2023-11-25] MEDS: Aspirin 81 MG TAB.CHEW PO (08:09)
[2023-11-25] MEDS: Lidocaine 4 % Patch ADH..PATCH 1 PATCH TRANSDERMA (08:11)
[2023-11-25] MEDS: polyethylene glycoL 3350 17 GM POWD.PACK PO (08:14)
--- NOTE | 2023-11-25 11:28 | PM.GYNCN ---
CREDIT ANALYST - CN: HPI Data of Consult Consult date: 11/25/23 Requesting Physician: Giuliano Avalos MD Primary Care Provider: Janneth Gan Consult Narrative Narrative: I was consulted on Lily Aldrich who is a 63 year old female complaining of vaginal /suprapubic pressure with vaginal discharge. The patient had a pessary inserted a months ago for bulge per vagina, no urinary symptoms. UA done yesterday was negative a CT scan pelvic viscera portion within normal with no evidence of uterine/adnexal abnormalities. cc:: CC: Giuliano Avalos MD OB [facility] Past Medical History Medical History TIA (transient ischemic attack) Bipolar disorder Social History Social History Household Members: Other Household Members Other:: dog Housing: Apartment Comment: not high fall risk Patient Tobacco Use Status: Never used Tobacco Use of substances other than those prescribed or required for medical reasons: No Currently Displaying Signs/Symptoms of Drug Intoxication Withdrawal: No Advance Directives: No Advance Directives Information Provided: No Do you have thoughts of harming others: None Do you have a plan to hurt others: No Plan Recently lost weight without trying: Yes How much weight loss: 14-23 pounds Eating poorly because of decreased appetite: Yes Nutrition screen score: 5 Nutrition Risks: Poor intake 0-25% >4 days Patient : No : No service: No Sexual orientation: Straight/Heterosexual Meds Allergies Allergy/AdvReac Type Severity Reaction Status Date / Time No Known Allergies Allergy Verified 11/19/23 16:44 Active Medications: Current Medications Acetaminophen (Acetaminophen 325 Mg Tablet) 975 mg PO Q6H PRN PRN Reason: Headache/Pain Mild Scale (1-3) Al Hydroxide/Mg Hydroxide (Magnesium Hydrox/Alum Hydrox 30 Ml Oral.Susp) 30 ml PO Q6H PRN PRN Reason: Heartburn/Nausea Last Admin: 11/24/23 17:53 Dose: 30 ml Aspirin (Aspirin 81 Mg Tab.Chew) 81 mg PO DAILY [facility] Last Admin: 11/25/23 08:09 Dose: 81 mg Bisacodyl (Bisacodyl 5 Mg Tablet.Dr) 10 mg PO DAILY PRN PRN Reason: Constipation Last Admin: 11/24/23 10:00 Dose: 10 mg Bupropion HCl (Bupropion Hcl 75 Mg Tablet) 150 mg PO DAILY [facility] BEDS AT [facility] Last Admin: 11/25/23 08:09 Dose: 150 mg Hydroxyzine HCl (Hydroxyzine Hcl 25 Mg Tablet) 25 mg PO Q6H PRN PRN Reason: Anxiety Last Admin: 11/22/23 21:07 Dose: 25 mg Lidocaine (Lidocaine 4 % Patch Adh..Patch) 1 patch TRANSDERMA DAILY [facility]S INCLUDE 234 BEDS AT THE [facility]; Protocol Last Admin: 11/25/23 08:11 Dose: 1 patch Magnesium Hydroxide (Milk Of Magnesia 30 Ml Oral.Susp) 30 ml PO DAILY PRN PRN Reason: Constipation Polyethylene Glycol (Polyethylene Glycol 3350 17 Gm Powd.Pack) 17 gm PO DAILY [facility]S [facility]CLUDE 234 BEDS AT [facility] Last Admin: 11/25/23 08:14 Dose: 17 gm Quetiapine Fumarate (Quetiapine Fumarate 25 Mg Tablet) 25 mg PO BEDTIME PRN PRN Reason: sleep Risperidone (Risperidone 0.5 Mg Tablet) 0.5 mg PO DAILY [facility]CLUDE 234 BEDS AT [facility] Last Admin: 11/25/23 08:09 Dose: 0.5 mg Risperidone (Risperidone 1 Mg Tablet) 1 mg PO BEDTIME COUNTS INCLUDE 234 BEDS AT THE [facility] Last Admin: 11/24/23 21:03 Dose: 1 mg Senna (Senna [place] Extract Oral Syrup 15 Ml Syrup) 15 ml PO BEDTIME COUNTS INCLUDE 234 BEDS AT THE [facility] Last Admin: 11/24/23 22:47 Dose: Not Given Trazodone HCl (Trazodone Hcl 50 Mg Tablet) 50 mg PO BEDTIME MRX1 PRN PRN Reason: Insomnia Last Admin: 11/24/23 22:45 Dose: 50 mg Vitamin D (Cholecalciferol (Vitamin D3) 25 Mcg Tablet) 50 mcg PO DAILY [facility] 234 BEDS AT [facility] Last Admin: 11/25/23 08:09 Dose: 50 mcg Home Medications Medication Instructions Recorded Confirmed Last Taken Type aspirin 81 mg tablet,delayed 81 mg PO DAILY 11/19/23 11/19/23 Unknown History release bupropion HCl 200 mg tablet,12 hr 200 mg PO BID 11/19/23 11/19/23 Unknown History sustained-release cholecalciferol (vitamin D3) 50 50 mcg PO DAILY 11/19/23 11/19/23 Unknown History mcg (2,000 unit) capsule (Vitamin D3) hydroxyzine HCl 25 mg tablet 25 mg PO Q6H PRN anxiety 11/19/23 11/19/23 Unknown History quetiapine 25 mg tablet 25 - 50 mg PO BEDTIME PRN Anxiety 11/19/23 11/19/23 Unknown History CREDIT ANALYST Physical Exam Vitals Vital signs: Temp Pulse Resp BP Pulse Ox O2 Del Method 97.1 F 78 12 113/61 97 Room Air 11/25/23 07:21 11/25/23 07:21 11/25/23 07:21 11/25/23 07:21 11/25/23 07:21 11/25/23 07:21 BMI result Body Mass Index 17.6 Female Genitalia (Pelvic) Bladder/Urethra: Normal meatus Vulva: No lesions Cervix: Grossly normal Uterus: Normal size Adnexa/Parametria: Adnexal Tenderness: None, Adnexal Mass: None, Parametrial Tenderness: None and Parametrial Mass: None Additional Comments: Left Vaginal wall and posterior fornix mild abrasion secondary to pessary CREDIT ANALYST - Results Labs 11/24/23 19:13 11/24/23 19:13 Labs: Short CBC 11/24/23 Range/Units 19:13 WBC 14.8 H (4.8-10.8) X10*3/uL Hgb 13.3 (12.0-16.0) g/dl Hct 40.8 (37.0-47.0) % Plt Count 218 (160-400) X10*3/uL BMP 11/24/23 19:13 Sodium 137 Potassium 4.5 Chloride 101 Carbon Dioxide 29 BUN 19 H Creatinine 0.73 Calcium 10.4 H Urine 11/24/23 Range/Units 21:40 Urine Color Dark Yellow Urine Appearance Clear Urine pH 5.5 (5.0-9.0) Ur Specific [place] 1.025 (1.005-1.025) Urine Protein Negative (Neg-Trace) mg/dL Urine Glucose (UA) Negative (Negative) mg/dL Assessment and Plan (1) Vaginal abrasion: Status: Acute #2 Ring pessary taken out, vaginal inspection revealed procedure for next and left vaginal wall abrasion secondary to the pessary. Pessary was left out. The patient felt better immediately. Will keep the pessary out for 6-8 weeks, instructions given to patient to call case of vaginal bleeding and /or persistence or worsening of her pain. Follow-up as an outpatient in 6-8 weeks for reinspection and possible pessary insertion. All questions answered, the patient verbalized understanding
--- NOTE | 2023-11-25 11:49 | PC.NURSE ---
Patient had completed a release of information upon admission. Pt retracted LARRY on 11/25/23 at 11:45, stating, I don;'t want them to know whats happening with me.
[2023-11-25] MEDS: Acetaminophen 325 MG TABLET 975 MG PO ×2 (12:26→21:19)
--- NOTE | 2023-11-25 15:10 | HO.PSYCHPN ---
Subjective Subjective Date of Service: 11/25/23 Reason For Visit: bipolar disorder Interim History: seen with casting associate. pessary removed today by beef specialist, leading to immediate relief of suprapubic pain. had a bowel movement last evening with sense of relief as well. straight cathed, large volume urine obtained. back pain improved with lidocaine patch. no complaints or requests. per staff, pt dep/anx, paranoid. c/o 10/ back pain. vomited last NOC. straight cathed, 350 ml, U/A neg. abd xray shows large stool burden. Mental Status Exam Mental Status Exam Narrative: Pt behavior is cooperative, friendly and calm; dressed in casual attire; mood is described as good ; eye contact appropriate; Speech is normal rate, volume and prosody and not pressured; paranoid, delusional; no SI/HI/VH/AH expressed. Diagnostics Vital Signs (24Hr): Vital Signs - 24 hr 11/24/23 19:55 11/25/23 07:21 Temperature 97.5 F 97.1 F Pulse Rate 77 78 Respiratory Rate 16 12 Blood Pressure 135/78 113/61 Pulse Oximetry 100 97 Oxygen Delivery Method Room Air Room Air BMI result Body Mass Index 17.6 Labs 11/24/23 19:13 11/24/23 19:13 Labs: Laboratory Results - last 48 hr 11/24/23 11/24/23 19:13 21:40 WBC 14.8 H RBC 4.94 Hgb 13.3 Hct 40.8 MCV 82.6 MCH 26.9 L MCHC 32.6 RDW 13.2 Plt Count 218 MPV 10.9 Immature Gran % (Auto) 0.3 Neut % (Auto) 88.6 H Lymph % (Auto) 6.1 L [place] % (Auto) 4.7 Eos % (Auto) 0.1 Baso % (Auto) 0.2 Lymph # (Auto) 0.9 L [place] # (Auto) 0.7 Eos # (Auto) 0.0 Baso # (Auto) 0.0 Abs Immat Gran (auto) 0.05 H Absolute Neuts (auto) 13.1 H Absolute Nucleated RBC 0.000 Nucleated RBC % (auto) 0.0 ESR 12 Sodium 137 Potassium 4.5 Chloride 101 Carbon Dioxide 29 Anion Gap 12 BUN 19 H Creatinine 0.73 Estim Creat Clear Calc 54.3 Estimated GFR > 60 Random Glucose 159 H Calcium 10.4 H C-Reactive Protein 0.11 Urine Color Dark Yellow Urine Appearance Clear Urine pH 5.5 Ur Specific [place] 1.025 Urine Protein Negative Urine Glucose (UA) Negative Urine Ketones Negative Urine Blood Negative Urine Nitrite Negative Ur Leukocyte Esterase Negative Imaging Radiology Impressions: ITS Impressions Abdomen X-Ray 11/24/23 11:08 IMPRESSION: Large amount of stool in the colon. Nonobstructive bowel gas pattern. Abdomen/Pelvis CT 11/24/23 19:56 IMPRESSION: 1. No convincing evidence of urinary retention. 2. Bibasilar atelectasis with calcified granulomas. 3. Large stool burden. 4. Pessary. 5. Posterior fixation L4-L5 with grade 1 anterolisthesis. Fleischner guidelines were followed. Medications Medications Current Medications Acetaminophen (Acetaminophen 325 Mg Tablet) 975 mg PO Q6H PRN PRN Reason: Headache/Pain Mild Scale (1-3) Last Admin: 11/25/23 12:26 Dose: 975 mg Al Hydroxide/Mg Hydroxide (Magnesium Hydrox/Alum Hydrox 30 Ml Oral.Susp) 30 ml PO Q6H PRN PRN Reason: Heartburn/Nausea Last Admin: 11/24/23 17:53 Dose: 30 ml Aspirin (Aspirin 81 Mg Tab.Chew) 81 mg PO DAILY [facility] Last Admin: 11/25/23 08:09 Dose: 81 mg Bisacodyl (Bisacodyl 5 Mg Tablet.Dr) 10 mg PO DAILY PRN PRN Reason: Constipation Last Admin: 11/24/23 10:00 Dose: 10 mg Bupropion HCl (Bupropion Hcl 75 Mg Tablet) 150 mg PO DAILY [facility] Last Admin: 11/25/23 08:09 Dose: 150 mg Lidocaine (Lidocaine 4 % Patch Adh..Patch) 1 patch TRANSDERMA DAILY [facility]; Protocol Last Admin: 11/25/23 08:11 Dose: 1 patch Magnesium Hydroxide (Milk Of Magnesia 30 Ml Oral.Susp) 30 ml PO DAILY PRN PRN Reason: Constipation Polyethylene Glycol (Polyethylene Glycol 3350 17 Gm Powd.Pack) 17 gm PO DAILY [facility] Last Admin: 11/25/23 08:14 Dose: 17 gm Risperidone (Risperidone 0.5 Mg Tablet) 0.5 mg PO DAILY [facility] Last Admin: 11/25/23 08:09 Dose: 0.5 mg Risperidone (Risperidone 1 Mg Tablet) 1 mg PO BEDTIME [facility] Last Admin: 11/24/23 21:03 Dose: 1 mg Senna (Senna [place] Extract Oral Syrup 15 Ml Syrup) 15 ml PO BEDTIME [facility] Last Admin: 11/24/23 22:47 Dose: Not Given Trazodone HCl (Trazodone Hcl 50 Mg Tablet) 50 mg PO BEDTIME MRX1 PRN PRN Reason: Insomnia Last Admin: 11/24/23 22:45 Dose: 50 mg Vitamin D (Cholecalciferol (Vitamin D3) 25 Mcg Tablet) 50 mcg PO DAILY [facility] Last Admin: 11/25/23 08:09 Dose: 50 mcg Allergies Allergies Allergy/AdvReac Type Severity Reaction Status Date / Time No Known Allergies Allergy Verified 11/19/23 16:44 Assessment & Plan Assessment & Plan (1) Vaginal abrasion: Status: Acute Code(s): S30.814A - Abrasion of vagina and vulva, initial encounter Assessment and Plan: #2 Ring pessary taken out, vaginal inspection revealed procedure for next and left vaginal wall abrasion secondary to the pessary. Pessary was left out. The patient felt better immediately. Will keep the pessary out for 6-8 weeks, instructions given to patient to call case of vaginal bleeding and /or persistence or worsening of her pain. Follow-up as an outpatient in 6-8 weeks for reinspection and possible pessary insertion. All questions answered, the patient verbalized understanding (2) Dementia: Status: Acute Code(s): F03.90 - Unspecified dementia, unspecified severity, without behavioral disturbance, psychotic disturbance, mood disturbance, and anxiety (3) Psychosis: Status: Acute Code(s): F29 - Unspecified psychosis not due to a substance or known physiological condition Plan Pt is a 63-year-old Thai-speaking female with a PMH significant for?cystocele with pessary in place, hx of TIA, osteoarthritis, chronic back pain, and bipolar disorder who is admitted to psychiatry unit for increasing paranoia and delusional behavior. Patient apparently does not feel safe in her current living situation as she states her neighbors upstairs are following her and trying to harm her. Patient placed on section 12. Medical consult for admission H&P. ?Patient denies any current acute medical complaints at this time. Patient is a 63 year old woman who presented to [facility] secondary to her sister reporting concerns regarding patient experiencing increased anxiety, paranoia and symptoms of dementia. Plan: CV 15 minute safety checks continue home medications decrease Wellbutrin to 150mg PO daily Start: Risperidal 0.5mg PO BID 11/23: remains with paranoid delusions. c/o suprapubic pain and constipation. dulcolax daily PRN and new UA C&S ordered. T/C increase in risperidone dosing. 11/24: suprapubic pain worse today, no BM after dulcolax x 2. low back pain, post-surgical - start lidocaine patch. [employer]nc Mill Operator consult for potential pessary complications. increase risperidone from 0.5 BID to 0.5/1. 11/25: pessary removed, suprapubic pain resolved. straight cathed for 350 cc; continue to straight cath as needed. back pain improved with lidocaine patch. had BM last night with some relief, abd xray shows large stool burden. laxatives scheduled for hospitalist. tolerating increase in risperidone. Reason for continued inpatient stay Substantial Risk for: inability to function and rapid decompensation Time Spent With Patient Time: Total time managing care of this patient today __35__ minutes.
[2023-11-25 19:40] VITALS: BP 115/68; PULSE 89; RESP 16; TEMP 36.2; O2SAT 99
[2023-11-25] MEDS: risperiDONE 1 MG TABLET PO (22:17)
[2023-11-25] MEDS: traZODone HCL 50 MG TABLET PO (22:17)
[2023-11-26 07:00] VITALS: BMI 18.8
[2023-11-26 07:43] VITALS: BP 134/68; PULSE 81; RESP 18; TEMP 36.4; O2SAT 98
[2023-11-26] MEDS: Lidocaine 4 % Patch ADH..PATCH 1 PATCH TRANSDERMA (08:24)
[2023-11-26] MEDS: polyethylene glycoL 3350 17 GM POWD.PACK PO (08:24)
[2023-11-26] MEDS: Aspirin 81 MG TAB.CHEW PO (08:25)
[2023-11-26] MEDS: buPROPion HCL 75 MG TABLET 150 MG PO (08:25)
[2023-11-26] MEDS: Cholecalciferol (Vitamin D3) 25 MCG TABLET 50 MCG PO (08:26)
[2023-11-26] MEDS: risperiDONE 0.5 MG TABLET PO (08:26)
--- NOTE | 2023-11-26 14:03 | HO.PSYCHPN ---
Subjective Subjective Date of Service: 11/26/23 Reason For Visit: bipolar disorder Interim History: seen with health education specialist. calm, cooperative. review somatic complaints, all improved. agreeable to increase HS risperidone to 1.5 mg. remains with paranoid delusions re neighbors. per staff, dep 0 anx 5. blunted affect. meals, meds. urinating, moving bowels. worried neighbors are up to something. slept 7-8 hours. Mental Status Exam Mental Status Exam Narrative: Pt behavior is cooperative, friendly and calm; dressed in casual attire; mood is described as good ; eye contact appropriate; Speech is normal rate, volume and prosody and not pressured; paranoid, delusional; no SI/HI/VH/AH expressed. Diagnostics Vital Signs (24Hr): Vital Signs - 24 hr 11/25/23 19:40 11/26/23 07:43 Temperature 97.1 F 97.5 F Pulse Rate 89 81 Respiratory Rate 16 18 Blood Pressure 115/68 134/68 Pulse Oximetry 99 98 Oxygen Delivery Method Room Air Room Air BMI result Body Mass Index 17.6 Labs 11/24/23 19:13 11/24/23 19:13 Labs: Laboratory Results - last 48 hr 11/24/23 11/24/23 19:13 21:40 WBC 14.8 H RBC 4.94 Hgb 13.3 Hct 40.8 MCV 82.6 MCH 26.9 L MCHC 32.6 RDW 13.2 Plt Count 218 MPV 10.9 Immature Gran % (Auto) 0.3 Neut % (Auto) 88.6 H Lymph % (Auto) 6.1 L [place] % (Auto) 4.7 Eos % (Auto) 0.1 Baso % (Auto) 0.2 Lymph # (Auto) 0.9 L [place] # (Auto) 0.7 Eos # (Auto) 0.0 Baso # (Auto) 0.0 Abs Immat Gran (auto) 0.05 H Absolute Neuts (auto) 13.1 H Absolute Nucleated RBC 0.000 Nucleated RBC % (auto) 0.0 ESR 12 Sodium 137 Potassium 4.5 Chloride 101 Carbon Dioxide 29 Anion Gap 12 BUN 19 H Creatinine 0.73 Estim Creat Clear Calc 54.3 Estimated GFR > 60 Random Glucose 159 H Calcium 10.4 H C-Reactive Protein 0.11 Urine Color Dark Yellow Urine Appearance Clear Urine pH 5.5 Ur Specific [place] 1.025 Urine Protein Negative Urine Glucose (UA) Negative Urine Ketones Negative Urine Blood Negative Urine Nitrite Negative Ur Leukocyte Esterase Negative Imaging Radiology Impressions: ITS Impressions Abdomen X-Ray 11/24/23 11:08 IMPRESSION: Large amount of stool in the colon. Nonobstructive bowel gas pattern. Abdomen/Pelvis CT 11/24/23 19:56 IMPRESSION: 1. No convincing evidence of urinary retention. 2. Bibasilar atelectasis with calcified granulomas. 3. Large stool burden. 4. Pessary. 5. Posterior fixation L4-L5 with grade 1 anterolisthesis. Fleischner guidelines were followed. Medications Medications Current Medications Acetaminophen (Acetaminophen 325 Mg Tablet) 975 mg PO Q6H PRN PRN Reason: Headache/Pain Mild Scale (1-3) Last Admin: 11/25/23 21:19 Dose: 975 mg Al Hydroxide/Mg Hydroxide (Magnesium Hydrox/Alum Hydrox 30 Ml Oral.Susp) 30 ml PO Q6H PRN PRN Reason: Heartburn/Nausea Last Admin: 11/24/23 17:53 Dose: 30 ml Aspirin (Aspirin 81 Mg Tab.Chew) 81 mg PO DAILY [facility] Last Admin: 11/26/23 08:25 Dose: 81 mg Bisacodyl (Bisacodyl 5 Mg Tablet.Dr) 10 mg PO DAILY PRN PRN Reason: Constipation Last Admin: 11/24/23 10:00 Dose: 10 mg Bupropion HCl (Bupropion Hcl 75 Mg Tablet) 150 mg PO DAILY [facility] Last Admin: 11/26/23 08:25 Dose: 150 mg Lidocaine (Lidocaine 4 % Patch Adh..Patch) 1 patch TRANSDERMA DAILY [facility]; Protocol Last Admin: 11/26/23 08:24 Dose: 1 patch Magnesium Hydroxide (Milk Of Magnesia 30 Ml Oral.Susp) 30 ml PO DAILY PRN PRN Reason: Constipation Polyethylene Glycol (Polyethylene Glycol 3350 17 Gm Powd.Pack) 17 gm PO DAILY [facility] Last Admin: 11/26/23 08:24 Dose: 17 gm Risperidone (Risperidone 0.5 Mg Tablet) 0.5 mg PO DAILY [facility] Last Admin: 11/26/23 08:26 Dose: 0.5 mg Risperidone (Risperidone 1 Mg Tablet) 1 mg PO BEDTIME [facility] Last Admin: 11/25/23 22:17 Dose: 1 mg Senna (Senna [place] Extract Oral Syrup 15 Ml Syrup) 15 ml PO BEDTIME [facility] Last Admin: 11/25/23 22:17 Dose: 15 ml Trazodone HCl (Trazodone Hcl 50 Mg Tablet) 50 mg PO BEDTIME MRX1 PRN PRN Reason: Insomnia Last Admin: 11/25/23 22:17 Dose: 50 mg Vitamin D (Cholecalciferol (Vitamin D3) 25 Mcg Tablet) 50 mcg PO DAILY [facility] Last Admin: 11/26/23 08:26 Dose: 50 mcg Allergies Allergies Allergy/AdvReac Type Severity Reaction Status Date / Time No Known Allergies Allergy Verified 11/19/23 16:44 Assessment & Plan Assessment & Plan (1) Vaginal abrasion: Status: Acute Code(s): S30.814A - Abrasion of vagina and vulva, initial encounter Assessment and Plan: #2 Ring pessary taken out, vaginal inspection revealed procedure for next and left vaginal wall abrasion secondary to the pessary. Pessary was left out. The patient felt better immediately. Will keep the pessary out for 6-8 weeks, instructions given to patient to call case of vaginal bleeding and /or persistence or worsening of her pain. Follow-up as an outpatient in 6-8 weeks for reinspection and possible pessary insertion. All questions answered, the patient verbalized understanding (2) Dementia: Status: Acute Code(s): F03.90 - Unspecified dementia, unspecified severity, without behavioral disturbance, psychotic disturbance, mood disturbance, and anxiety (3) Psychosis: Status: Acute Code(s): F29 - Unspecified psychosis not due to a substance or known physiological condition Plan Pt is a 63-year-old Yoruba-speaking female with a PMH significant for?cystocele with pessary in place, hx of TIA, osteoarthritis, chronic back pain, and bipolar disorder who is admitted to psychiatry unit for increasing paranoia and delusional behavior. Patient apparently does not feel safe in her current living situation as she states her neighbors upstairs are following her and trying to harm her. Patient placed on section 12. Medical consult for admission H&P. ?Patient denies any current acute medical complaints at this time. Patient is a 63 year old woman who presented to [facility] secondary to her sister reporting concerns regarding patient experiencing increased anxiety, paranoia and symptoms of dementia. Plan: CV 15 minute safety checks continue home medications decrease Wellbutrin to 150mg PO daily Start: Risperidal 0.5mg PO BID 11/23: remains with paranoid delusions. c/o suprapubic pain and constipation. dulcolax daily PRN and new UA C&S ordered. T/C increase in risperidone dosing. 11/24: suprapubic pain worse today, no BM after dulcolax x 2. low back pain, post-surgical - start lidocaine patch. [employer] Clerk consult for potential pessary complications. increase risperidone from 0.5 BID to 0.5/1. 11/25: pessary removed, suprapubic pain resolved. straight cathed for 350 cc; continue to straight cath as needed. back pain improved with lidocaine patch. had BM last night with some relief, abd xray shows large stool burden. laxatives scheduled for hospitalist. tolerating increase in risperidone. : various somatic complaints remain improved. paranoid delusions continue. sleeping well. agreeable to increase dose of HS risperidone to 1.5 mg. Reason for continued inpatient stay Substantial Risk for: inability to function Time Spent With Patient Time: Total time managing care of this patient today __35__ minutes.
[2023-11-26 20:15] VITALS: BP 139/77; PULSE 92; RESP 16; TEMP 36.6; O2SAT 96
[2023-11-26] MEDS: risperiDONE 0.5 MG TABLET 1.5 MG PO (20:24)
[2023-11-26] MEDS: traZODone HCL 50 MG TABLET PO (21:57)
[2023-11-27 07:30] VITALS: BP 130/69; PULSE 85; RESP 16; TEMP 35.2; O2SAT 100
[2023-11-27] MEDS: polyethylene glycoL 3350 17 GM POWD.PACK PO (08:44)
[2023-11-27] MEDS: risperiDONE 0.5 MG TABLET PO (08:44)
[2023-11-27] MEDS: buPROPion HCL 75 MG TABLET 150 MG PO (08:50)
[2023-11-27] MEDS: Cholecalciferol (Vitamin D3) 25 MCG TABLET 50 MCG PO (08:50)
[2023-11-27] MEDS: Lidocaine 4 % Patch ADH..PATCH 1 PATCH TRANSDERMA (08:50)
[2023-11-27] MEDS: Aspirin 81 MG TAB.CHEW PO (08:50)
--- NOTE | 2023-11-27 12:19 | HO.PSYCHPN ---
Subjective Subjective Date of Service: 11/27/23 Reason For Visit: bipolar disorder Interim History: seen with quality assurance analyst. reports her mood is good, she slept well. states continues to urinate and move her bowels well, suprapubic pain has all but resolved, back pain is being addressed by lidocaine patch. remains not in agreement to return to her apartment. will explore option of discharging to daughter or sister's house next week. per staff, denies dep/anx. eating, attending groups. slept well. Mental Status Exam Mental Status Exam Narrative: Pt behavior is cooperative, friendly and calm; dressed in casual attire; mood is described as good ; eye contact appropriate; Speech is normal rate, volume and prosody and not pressured; paranoid, delusional; no SI/HI/VH/AH expressed. Diagnostics Vital Signs (24Hr): Vital Signs - 24 hr 11/26/23 20:15 11/27/23 07:30 Temperature 97.9 F 95.4 F L Pulse Rate 92 85 Respiratory Rate 16 16 Blood Pressure 139/77 130/69 Pulse Oximetry 96 100 Oxygen Delivery Method Room Air Room Air BMI result Body Mass Index 18.8 Labs 11/24/23 19:13 11/24/23 19:13 Imaging Radiology Impressions: ITS Impressions Abdomen X-Ray 11/24/23 11:08 IMPRESSION: Large amount of stool in the colon. Nonobstructive bowel gas pattern. Abdomen/Pelvis CT 11/24/23 19:56 IMPRESSION: 1. No convincing evidence of urinary retention. 2. Bibasilar atelectasis with calcified granulomas. 3. Large stool burden. 4. Pessary. 5. Posterior fixation L4-L5 with grade 1 anterolisthesis. Fleischner guidelines were followed. Medications Medications Current Medications Acetaminophen (Acetaminophen 325 Mg Tablet) 975 mg PO Q6H PRN PRN Reason: Headache/Pain Mild Scale (1-3) Last Admin: 11/25/23 21:19 Dose: 975 mg Al Hydroxide/Mg Hydroxide (Magnesium Hydrox/Alum Hydrox 30 Ml Oral.Susp) 30 ml PO Q6H PRN PRN Reason: Heartburn/Nausea Last Admin: 11/24/23 17:53 Dose: 30 ml Aspirin (Aspirin 81 Mg Tab.Chew) 81 mg PO DAILY [facility] Last Admin: 11/27/23 08:50 Dose: 81 mg Bisacodyl (Bisacodyl 5 Mg Tablet.Dr) 10 mg PO DAILY PRN PRN Reason: Constipation Last Admin: 11/24/23 10:00 Dose: 10 mg Bupropion HCl (Bupropion Hcl 75 Mg Tablet) 150 mg PO DAILY [facility] Last Admin: 11/27/23 08:50 Dose: 150 mg Lidocaine (Lidocaine 4 % Patch Adh..Patch) 1 patch TRANSDERMA DAILY [facility]; Protocol Last Admin: 11/27/23 08:50 Dose: 1 patch Magnesium Hydroxide (Milk Of Magnesia 30 Ml Oral.Susp) 30 ml PO DAILY PRN PRN Reason: Constipation Polyethylene Glycol (Polyethylene Glycol 3350 17 Gm Powd.Pack) 17 gm PO DAILY [facility] Last Admin: 11/27/23 08:44 Dose: 17 gm Risperidone (Risperidone 0.5 Mg Tablet) 0.5 mg PO DAILY [facility] Last Admin: 11/27/23 08:44 Dose: 0.5 mg Risperidone (Risperidone 0.5 Mg Tablet) 1.5 mg PO BEDTIME [facility] Last Admin: 11/26/23 20:24 Dose: 1.5 mg Senna (Senna [place] Extract Oral Syrup 15 Ml Syrup) 15 ml PO BEDTIME [facility] Last Admin: 11/26/23 20:24 Dose: 15 ml Trazodone HCl (Trazodone Hcl 50 Mg Tablet) 50 mg PO BEDTIME MRX1 PRN PRN Reason: Insomnia Last Admin: 11/26/23 21:57 Dose: 50 mg Vitamin D (Cholecalciferol (Vitamin D3) 25 Mcg Tablet) 50 mcg PO DAILY [facility] Last Admin: 11/27/23 08:50 Dose: 50 mcg Allergies Allergies Allergy/AdvReac Type Severity Reaction Status Date / Time No Known Allergies Allergy Verified 11/19/23 16:44 Assessment & Plan Assessment & Plan (1) Vaginal abrasion: Status: Acute Code(s): S30.814A - Abrasion of vagina and vulva, initial encounter Assessment and Plan: #2 Ring pessary taken out, vaginal inspection revealed procedure for next and left vaginal wall abrasion secondary to the pessary. Pessary was left out. The patient felt better immediately. Will keep the pessary out for 6-8 weeks, instructions given to patient to call case of vaginal bleeding and /or persistence or worsening of her pain. Follow-up as an outpatient in 6-8 weeks for reinspection and possible pessary insertion. All questions answered, the patient verbalized understanding (2) Dementia: Status: Acute Code(s): F03.90 - Unspecified dementia, unspecified severity, without behavioral disturbance, psychotic disturbance, mood disturbance, and anxiety (3) Psychosis: Status: Acute Code(s): F29 - Unspecified psychosis not due to a substance or known physiological condition Plan Pt is a 63-year-old Italian-speaking female with a PMH significant for?cystocele with pessary in place, hx of TIA, osteoarthritis, chronic back pain, and bipolar disorder who is admitted to psychiatry unit for increasing paranoia and delusional behavior. Patient apparently does not feel safe in her current living situation as she states her neighbors upstairs are following her and trying to harm her. Patient placed on section 12. Medical consult for admission H&P. ?Patient denies any current acute medical complaints at this time. Patient is a 63 year old woman who presented to [facility] ER secondary to her sister reporting concerns regarding patient experiencing increased anxiety, paranoia and symptoms of dementia. Plan: CV 15 minute safety checks continue home medications decrease Wellbutrin to 150mg PO daily Start: Risperidal 0.5mg PO BID 11/23: remains with paranoid delusions. c/o suprapubic pain and constipation. dulcolax daily PRN and new UA C&S ordered. T/C increase in risperidone dosing. 11/24: suprapubic pain worse today, no BM after dulcolax x 2. low back pain, post-surgical - start lidocaine patch. Chief Data Officer consult for potential pessary complications. increase risperidone from 0.5 BID to 0.5/1. 11/25: pessary removed, suprapubic pain resolved. straight cathed for 350 cc; continue to straight cath as needed. back pain improved with lidocaine patch. had BM last night with some relief, abd xray shows large stool burden. laxatives scheduled for hospitalist. tolerating increase in risperidone. : various somatic complaints remain improved. paranoid delusions continue. sleeping well. agreeable to increase dose of HS risperidone to 1.5 mg. 11/26: continues better physically, no substantial change in paranoid delusions. will contact daughter or sister about staying with one of them post-discharge. planning for discharge sometime next week. Reason for continued inpatient stay Substantial Risk for: inability to function and rapid decompensation Time Spent With Patient Time: Total time managing care of this patient today __25__ minutes.
[2023-11-27] MEDS: Tetrahydrozoline HCl 0.05% Oph 15 ML DRPBTL 1 DROP EYE-BOTH (17:56)
[2023-11-27 20:00] VITALS: BP 129/68; PULSE 87; RESP 16; TEMP 36.4; O2SAT 99
[2023-11-27] MEDS: risperiDONE 0.5 MG TABLET 1.5 MG PO (21:40)
[2023-11-27] MEDS: traZODone HCL 50 MG TABLET PO (22:47)
[2023-11-28 08:00] VITALS: BP 136/76; PULSE 83; RESP 16; TEMP 36.1; O2SAT 97
[2023-11-28] MEDS: polyethylene glycoL 3350 17 GM POWD.PACK PO (09:24)
[2023-11-28] MEDS: Cholecalciferol (Vitamin D3) 25 MCG TABLET 50 MCG PO (09:25)
[2023-11-28] MEDS: buPROPion HCL 75 MG TABLET 150 MG PO (09:25)
[2023-11-28] MEDS: Lidocaine 4 % Patch ADH..PATCH 1 PATCH TRANSDERMA (09:26)
[2023-11-28] MEDS: Aspirin 81 MG TAB.CHEW PO (09:26)
[2023-11-28] MEDS: risperiDONE 0.5 MG TABLET PO (09:26)
--- NOTE | 2023-11-28 16:03 | HO.PSYCHPN ---
Subjective Subjective Date of Service: 11/28/23 Reason For Visit: bipolar disorder Interim History: calm, cooperative, feeling well, seen with on site nurse. no questions or concerns. per staff, dep/anx 0. PRN trazodone at HS. Mental Status Exam Mental Status Exam Narrative: Pt behavior is cooperative, friendly and calm; dressed in casual attire; mood is described as good ; eye contact appropriate; Speech is normal rate, volume and prosody and not pressured; paranoid, delusional; no SI/HI/VH/AH expressed. Diagnostics Vital Signs (24Hr): Vital Signs - 24 hr 11/27/23 20:00 11/28/23 08:00 Temperature 97.5 F 96.9 F Pulse Rate 87 83 Respiratory Rate 16 16 Blood Pressure 129/68 136/76 Pulse Oximetry 99 97 Oxygen Delivery Method Room Air Room Air BMI result Body Mass Index 18.8 Labs 11/24/23 19:13 11/24/23 19:13 Imaging Radiology Impressions: ITS Impressions Abdomen X-Ray 11/24/23 11:08 IMPRESSION: Large amount of stool in the colon. Nonobstructive bowel gas pattern. Abdomen/Pelvis CT 11/24/23 19:56 IMPRESSION: 1. No convincing evidence of urinary retention. 2. Bibasilar atelectasis with calcified granulomas. 3. Large stool burden. 4. Pessary. 5. Posterior fixation L4-L5 with grade 1 anterolisthesis. Fleischner guidelines were followed. Medications Medications Current Medications Acetaminophen (Acetaminophen 325 Mg Tablet) 975 mg PO Q6H PRN PRN Reason: Headache/Pain Mild Scale (1-3) Last Admin: 11/25/23 21:19 Dose: 975 mg Al Hydroxide/Mg Hydroxide (Magnesium Hydrox/Alum Hydrox 30 Ml Oral.Susp) 30 ml PO Q6H PRN PRN Reason: Heartburn/Nausea Last Admin: 11/24/23 17:53 Dose: 30 ml Aspirin (Aspirin 81 Mg Tab.Chew) 81 mg PO DAILY [facility] Last Admin: 11/28/23 09:26 Dose: 81 mg Bisacodyl (Bisacodyl 5 Mg Tablet.Dr) 10 mg PO DAILY PRN PRN Reason: Constipation Last Admin: 11/24/23 10:00 Dose: 10 mg Bupropion HCl (Bupropion Hcl 75 Mg Tablet) 150 mg PO DAILY [facility] Last Admin: 11/28/23 09:25 Dose: 150 mg Lidocaine (Lidocaine 4 % Patch Adh..Patch) 1 patch TRANSDERMA DAILY [facility]; Protocol Last Admin: 11/28/23 09:26 Dose: 1 patch Magnesium Hydroxide (Milk Of Magnesia 30 Ml Oral.Susp) 30 ml PO DAILY PRN PRN Reason: Constipation Polyethylene Glycol (Polyethylene Glycol 3350 17 Gm Powd.Pack) 17 gm PO DAILY [facility] Last Admin: 11/28/23 09:24 Dose: 17 gm Risperidone (Risperidone 0.5 Mg Tablet) 0.5 mg PO DAILY [facility] Last Admin: 11/28/23 09:26 Dose: 0.5 mg Risperidone (Risperidone 0.5 Mg Tablet) 1.5 mg PO BEDTIME [facility] Last Admin: 11/27/23 21:40 Dose: 1.5 mg Senna (Sennosides 8.6 Mg Tablet) 17.2 mg PO BEDTIME [facility] Tetrahydrozoline HCl (Tetrahydrozoline Hcl 0.05% Oph 15 Ml Drpbtl) 1 drop EYE-BOTH QID PRN PRN Reason: Dry Eyes Last Admin: 11/27/23 17:56 Dose: 1 drop Trazodone HCl (Trazodone Hcl 50 Mg Tablet) 50 mg PO BEDTIME MRX1 PRN PRN Reason: Insomnia Last Admin: 11/27/23 22:47 Dose: 50 mg Vitamin D (Cholecalciferol (Vitamin D3) 25 Mcg Tablet) 50 mcg PO DAILY [facility] Last Admin: 11/28/23 09:25 Dose: 50 mcg Allergies Allergies Allergy/AdvReac Type Severity Reaction Status Date / Time No Known Allergies Allergy Verified 11/19/23 16:44 Assessment & Plan Assessment & Plan (1) Vaginal abrasion: Status: Acute Code(s): S30.814A - Abrasion of vagina and vulva, initial encounter Assessment and Plan: #2 Ring pessary taken out, vaginal inspection revealed procedure for next and left vaginal wall abrasion secondary to the pessary. Pessary was left out. The patient felt better immediately. Will keep the pessary out for 6-8 weeks, instructions given to patient to call case of vaginal bleeding and /or persistence or worsening of her pain. Follow-up as an outpatient in 6-8 weeks for reinspection and possible pessary insertion. All questions answered, the patient verbalized understanding (2) Dementia: Status: Acute Code(s): F03.90 - Unspecified dementia, unspecified severity, without behavioral disturbance, psychotic disturbance, mood disturbance, and anxiety (3) Psychosis: Status: Acute Code(s): F29 - Unspecified psychosis not due to a substance or known physiological condition Plan Pt is a 63-year-old Danish-speaking female with a PMH significant for?cystocele with pessary in place, hx of TIA, osteoarthritis, chronic back pain, and bipolar disorder who is admitted to psychiatry unit for increasing paranoia and delusional behavior. Patient apparently does not feel safe in her current living situation as she states her neighbors upstairs are following her and trying to harm her. Patient placed on section 12. Medical consult for admission H&P. ?Patient denies any current acute medical complaints at this time. Patient is a 63 year old woman who presented to [facility] ER secondary to her sister reporting concerns regarding patient experiencing increased anxiety, paranoia and symptoms of dementia. Plan: CV 15 minute safety checks continue home medications decrease Wellbutrin to 150mg PO daily Start: Risperidal 0.5mg PO BID 11/23: remains with paranoid delusions. c/o suprapubic pain and constipation. dulcolax daily PRN and new UA C&S ordered. T/C increase in risperidone dosing. 11/24: suprapubic pain worse today, no BM after dulcolax x 2. low back pain, post-surgical - start lidocaine patch. Garment Parts Cutter Machine consult for potential pessary complications. increase risperidone from 0.5 BID to 0.5/1. 11/25: pessary removed, suprapubic pain resolved. straight cathed for 350 cc; continue to straight cath as needed. back pain improved with lidocaine patch. had BM last night with some relief, abd xray shows large stool burden. laxatives scheduled for hospitalist. tolerating increase in risperidone. : various somatic complaints remain improved. paranoid delusions continue. sleeping well. agreeable to increase dose of HS risperidone to 1.5 mg. 11/26: continues better physically, no substantial change in paranoid delusions. will contact daughter or sister about staying with one of them post-discharge. planning for discharge sometime next week. 11/27: remains paranoid. awaiting word from relatives re her dispo options. says she will not return to her apartment. Reason for continued inpatient stay Substantial Risk for: inability to function Time Spent With Patient Time: Total time managing care of this patient today __25__ minutes.
[2023-11-28 19:56] VITALS: BP 129/69; PULSE 82; RESP 16; TEMP 36.4; O2SAT 100
[2023-11-28] MEDS: Sennosides 8.6 MG TABLET 17.2 MG PO (21:59)
[2023-11-28] MEDS: risperiDONE 0.5 MG TABLET 1.5 MG PO (22:00)
[2023-11-28] MEDS: traZODone HCL 50 MG TABLET PO (22:36)
[2023-11-29] MEDS: Lidocaine 4 % Patch ADH..PATCH 1 PATCH TRANSDERMA (08:25)
[2023-11-29] MEDS: polyethylene glycoL 3350 17 GM POWD.PACK PO (08:26)
[2023-11-29] MEDS: risperiDONE 0.5 MG TABLET PO (08:27)
[2023-11-29] MEDS: Cholecalciferol (Vitamin D3) 25 MCG TABLET 50 MCG PO (08:27)
[2023-11-29] MEDS: buPROPion HCL 75 MG TABLET 150 MG PO (08:27)
[2023-11-29] MEDS: Aspirin 81 MG TAB.CHEW PO (08:27)
[2023-11-29 14:25] VITALS: BP 113/65; PULSE 88; RESP 16; TEMP 36; O2SAT 99
[2023-11-29] MEDS: Acetaminophen 325 MG TABLET 975 MG PO ×2 (14:47→21:13)
--- NOTE | 2023-11-29 14:49 | P.PNPSI_ITS ---
Subjective Subjective Date of Service: 11/29/23 Reason For Visit: bipolar disorder Interim History: calm, cooperative. somatic issues under control. educated to ask claims agent right of way for tylenol for pains. some sleep disruption last night. agreeable to increase HS risperidone to 2 mg. trying to work out a plan to split time between her sister and her daughter's homes after discharge. per staff, attending groups. active, appropriate. some dep/anx. using lidoderm. Mental Status Exam Mental Status Exam Narrative: Pt behavior is cooperative, friendly and calm; dressed in casual attire; mood is described as good ; eye contact appropriate; Speech is normal rate, volume and prosody and not pressured; paranoid, delusional; no SI/HI/VH/AH expressed. Diagnostics Vital Signs (24Hr): Vital Signs - 24 hr 11/28/23 19:56 11/29/23 14:25 Temperature 97.5 F 96.8 F Pulse Rate 82 88 Respiratory Rate 16 16 Blood Pressure 129/69 113/65 Pulse Oximetry 100 99 Oxygen Delivery Method Room Air Room Air BMI result Body Mass Index 18.8 Labs 11/24/23 19:13 11/24/23 19:13 Imaging Radiology Impressions: ITS Impressions Abdomen X-Ray 11/24/23 11:08 IMPRESSION: Large amount of stool in the colon. Nonobstructive bowel gas pattern. Abdomen/Pelvis CT 11/24/23 19:56 IMPRESSION: 1. No convincing evidence of urinary retention. 2. Bibasilar atelectasis with calcified granulomas. 3. Large stool burden. 4. Pessary. 5. Posterior fixation L4-L5 with grade 1 anterolisthesis. Fleischner guidelines were followed. Medications Medications Current Medications Acetaminophen (Acetaminophen 325 Mg Tablet) 975 mg PO Q6H PRN PRN Reason: Headache/Pain Mild Scale (1-3) Last Admin: 11/25/23 21:19 Dose: 975 mg Al Hydroxide/Mg Hydroxide (Magnesium Hydrox/Alum Hydrox 30 Ml Oral.Susp) 30 ml PO Q6H PRN PRN Reason: Heartburn/Nausea Last Admin: 11/24/23 17:53 Dose: 30 ml Aspirin (Aspirin 81 Mg Tab.Chew) 81 mg PO DAILY [facility] Last Admin: 11/29/23 08:27 Dose: 81 mg Bisacodyl (Bisacodyl 5 Mg Tablet.Dr) 10 mg PO DAILY PRN PRN Reason: Constipation Last Admin: 11/24/23 10:00 Dose: 10 mg Bupropion HCl (Bupropion Hcl 75 Mg Tablet) 150 mg PO DAILY [facility] Last Admin: 11/29/23 08:27 Dose: 150 mg Lidocaine (Lidocaine 4 % Patch Adh..Patch) 1 patch TRANSDERMA DAILY [facility]; Protocol Last Admin: 11/29/23 08:25 Dose: 1 patch Magnesium Hydroxide (Milk Of Magnesia 30 Ml Oral.Susp) 30 ml PO DAILY PRN PRN Reason: Constipation Polyethylene Glycol (Polyethylene Glycol 3350 17 Gm Powd.Pack) 17 gm PO DAILY [facility] Last Admin: 11/29/23 08:26 Dose: 17 gm Risperidone (Risperidone 0.5 Mg Tablet) 0.5 mg PO DAILY [facility] Last Admin: 11/29/23 08:27 Dose: 0.5 mg Risperidone (Risperidone 2 Mg Tablet) 2 mg PO BEDTIME [facility] Senna (Sennosides 8.6 Mg Tablet) 17.2 mg PO BEDTIME [facility] Last Admin: 11/28/23 21:59 Dose: 17.2 mg Tetrahydrozoline HCl (Tetrahydrozoline Hcl 0.05% Oph 15 Ml Drpbtl) 1 drop EYE- BOTH QID PRN PRN Reason: Dry Eyes Last Admin: 11/27/23 17:56 Dose: 1 drop Trazodone HCl (Trazodone Hcl 50 Mg Tablet) 50 mg PO BEDTIME MRX1 PRN PRN Reason: Insomnia Last Admin: 11/28/23 22:36 Dose: 50 mg Vitamin D (Cholecalciferol (Vitamin D3) 25 Mcg Tablet) 50 mcg PO DAILY [facility] Last Admin: 11/29/23 08:27 Dose: 50 mcg Allergies Allergies Allergy/AdvReac Type Severity Reaction Status Date / Time No Known Allergies Allergy Verified 11/19/23 16:44 Assessment & Plan Assessment & Plan (1) Vaginal abrasion: Status: Acute Code(s): S30.814A - Abrasion of vagina and vulva, initial encounter Assessment and Plan: #2 Ring pessary taken out, vaginal inspection revealed procedure for next and left vaginal wall abrasion secondary to the pessary. Pessary was left out. The patient felt better immediately. Will keep the pessary out for 6-8 weeks, instructions given to patient to call case of vaginal bleeding and /or persistence or worsening of her pain. Follow-up as an outpatient in 6-8 weeks for reinspection and possible pessary insertion. All questions answered, the patient verbalized understanding (2) Dementia: Status: Acute Code(s): F03.90 - Unspecified dementia, unspecified severity, without behavioral disturbance, psychotic disturbance, mood disturbance, and anxiety (3) Psychosis: Status: Acute Code(s): F29 - Unspecified psychosis not due to a substance or known physiological condition Plan Pt is a 63-year-old Italian-speaking female with a PMH significant for?cystocele with pessary in place, hx of TIA, osteoarthritis, chronic back pain, and bipolar disorder who is admitted to psychiatry unit for increasing paranoia and delusional behavior. Patient apparently does not feel safe in her current living situation as she states her neighbors upstairs are following her and trying to harm her. Patient placed on section 12. Medical consult for admission H&P. ?Patient denies any current acute medical complaints at this time. Patient is a 63 year old woman who presented to [facility] ER secondary to her sister reporting concerns regarding patient experiencing increased anxiety, paranoia and symptoms of dementia. Plan: CV 15 minute safety checks continue home medications decrease Wellbutrin to 150mg PO daily Start: Risperidal 0.5mg PO BID 11/23: remains with paranoid delusions. c/o suprapubic pain and constipation. dulcolax daily PRN and new UA C&S ordered. T/C increase in risperidone dosing. 11/24: suprapubic pain worse today, no BM after dulcolax x 2. low back pain, post-surgical - start lidocaine patch. Loan Processor consult for potential pessary complications. increase risperidone from 0.5 BID to 0.5/1. 11/25: pessary removed, suprapubic pain resolved. straight cathed for 350 cc; continue to straight cath as needed. back pain improved with lidocaine patch. had BM last night with some relief, abd xray shows large stool burden. laxatives scheduled for hospitalist. tolerating increase in risperidone. : various somatic complaints remain improved. paranoid delusions continue. sleeping well. agreeable to increase dose of HS risperidone to 1.5 mg. 11/26: continues better physically, no substantial change in paranoid delusions. will contact daughter or sister about staying with one of them post-discharge. planning for discharge sometime next week. 11/27: remains paranoid. awaiting word from relatives re her dispo options. says she will not return to her apartment. 11/28: continues paranoid. increase HS risperidone from 1.5 mg to 2 mg. Reason for continued inpatient stay Substantial Risk for: inability to function Time Spent With Patient Time: Total time managing care of this patient today ____ minutes.
[2023-11-29 20:00] VITALS: BP 130/76; PULSE 90; RESP 16; TEMP 36.4; O2SAT 99
[2023-11-29] MEDS: risperiDONE 2 MG TABLET PO (21:13)
[2023-11-29] MEDS: traZODone HCL 50 MG TABLET PO (21:13)
[2023-11-29] MEDS: Sennosides 8.6 MG TABLET 17.2 MG PO (21:13)
[2023-11-30 08:10] VITALS: BP 126/86; PULSE 85; RESP 16; TEMP 36.3; O2SAT 98
[2023-11-30] MEDS: buPROPion HCL 75 MG TABLET 150 MG PO (08:24)
[2023-11-30] MEDS: Cholecalciferol (Vitamin D3) 25 MCG TABLET 50 MCG PO (08:24)
[2023-11-30] MEDS: Aspirin 81 MG TAB.CHEW PO (08:24)
[2023-11-30] MEDS: risperiDONE 0.5 MG TABLET PO (08:24)
[2023-11-30] MEDS: Lidocaine 4 % Patch ADH..PATCH 1 PATCH TRANSDERMA (08:25)
[2023-11-30] MEDS: polyethylene glycoL 3350 17 GM POWD.PACK PO (08:27)
--- NOTE | 2023-11-30 13:48 | P.PNPSI_ITS ---
Subjective Subjective Date of Service: 11/30/23 Reason For Visit: bipolar disorder Interim History: calm, cooperative. feeling well. interesting in discharge soon. will have to arrange dispo plan as pt does not wish to return to her apartment. per staff, c/o some lower abdominal pain. denies AVH. slept about 7 hours. Mental Status Exam Mental Status Exam Narrative: Pt behavior is cooperative, friendly and calm; dressed in casual attire; mood is described as good ; eye contact appropriate; Speech is normal rate, volume and prosody and not pressured; paranoid, delusional; no SI/HI/VH/AH expressed. Diagnostics Vital Signs (24Hr): Vital Signs - 24 hr 11/29/23 14:25 11/29/23 20:00 11/30/23 08:10 Temperature 96.8 F 97.5 F 97.3 F Pulse Rate 88 90 85 Respiratory Rate 16 16 16 Blood Pressure 113/65 130/76 126/86 Pulse Oximetry 99 99 98 Oxygen Delivery Method Room Air Room Air Room Air BMI result Body Mass Index 18.8 Labs 11/24/23 19:13 11/24/23 19:13 Imaging Radiology Impressions: ITS Impressions Abdomen X-Ray 11/24/23 11:08 IMPRESSION: Large amount of stool in the colon. Nonobstructive bowel gas pattern. Abdomen/Pelvis CT 11/24/23 19:56 IMPRESSION: 1. No convincing evidence of urinary retention. 2. Bibasilar atelectasis with calcified granulomas. 3. Large stool burden. 4. Pessary. 5. Posterior fixation L4-L5 with grade 1 anterolisthesis. Fleischner guidelines were followed. Medications Medications Current Medications Acetaminophen (Acetaminophen 325 Mg Tablet) 975 mg PO Q6H PRN PRN Reason: Headache/Pain Mild Scale (1-3) Last Admin: 11/29/23 21:13 Dose: 975 mg Al Hydroxide/Mg Hydroxide (Magnesium Hydrox/Alum Hydrox 30 Ml Oral.Susp) 30 ml PO Q6H PRN PRN Reason: Heartburn/Nausea Last Admin: 11/24/23 17:53 Dose: 30 ml Aspirin (Aspirin 81 Mg Tab.Chew) 81 mg PO DAILY [facility] Last Admin: 11/30/23 08:24 Dose: 81 mg Bisacodyl (Bisacodyl 5 Mg Tablet.Dr) 10 mg PO DAILY PRN PRN Reason: Constipation Last Admin: 11/24/23 10:00 Dose: 10 mg Bupropion HCl (Bupropion Hcl 75 Mg Tablet) 150 mg PO DAILY [facility] Last Admin: 11/30/23 08:24 Dose: 150 mg Lidocaine (Lidocaine 4 % Patch Adh..Patch) 1 patch TRANSDERMA DAILY [facility]; Protocol Last Admin: 11/30/23 08:25 Dose: 1 patch Magnesium Hydroxide (Milk Of Magnesia 30 Ml Oral.Susp) 30 ml PO DAILY PRN PRN Reason: Constipation Polyethylene Glycol (Polyethylene Glycol 3350 17 Gm Powd.Pack) 17 gm PO DAILY [facility] Last Admin: 11/30/23 08:27 Dose: 17 gm Risperidone (Risperidone 0.5 Mg Tablet) 0.5 mg PO DAILY [facility] Last Admin: 11/30/23 08:24 Dose: 0.5 mg Risperidone (Risperidone 2 Mg Tablet) 2 mg PO BEDTIME [facility] Last Admin: 11/29/23 21:13 Dose: 2 mg Senna (Sennosides 8.6 Mg Tablet) 17.2 mg PO BEDTIME [facility] Last Admin: 11/29/23 21:13 Dose: 17.2 mg Tetrahydrozoline HCl (Tetrahydrozoline Hcl 0.05% Oph 15 Ml Drpbtl) 1 drop EYE- BOTH QID PRN PRN Reason: Dry Eyes Last Admin: 11/27/23 17:56 Dose: 1 drop Trazodone HCl (Trazodone Hcl 50 Mg Tablet) 50 mg PO BEDTIME MRX1 PRN PRN Reason: Insomnia Last Admin: 11/29/23 21:13 Dose: 50 mg Vitamin D (Cholecalciferol (Vitamin D3) 25 Mcg Tablet) 50 mcg PO DAILY [facility] Last Admin: 11/30/23 08:24 Dose: 50 mcg Allergies Allergies Allergy/AdvReac Type Severity Reaction Status Date / Time No Known Allergies Allergy Verified 11/19/23 16:44 Assessment & Plan Assessment & Plan (1) Vaginal abrasion: Status: Acute Code(s): S30.814A - Abrasion of vagina and vulva, initial encounter Assessment and Plan: #2 Ring pessary taken out, vaginal inspection revealed procedure for next and left vaginal wall abrasion secondary to the pessary. Pessary was left out. The patient felt better immediately. Will keep the pessary out for 6-8 weeks, instructions given to patient to call case of vaginal bleeding and /or persistence or worsening of her pain. Follow-up as an outpatient in 6-8 weeks for reinspection and possible pessary insertion. All questions answered, the patient verbalized understanding (2) Dementia: Status: Acute Code(s): F03.90 - Unspecified dementia, unspecified severity, without behavioral disturbance, psychotic disturbance, mood disturbance, and anxiety (3) Psychosis: Status: Acute Code(s): F29 - Unspecified psychosis not due to a substance or known physiological condition Plan Pt is a 63-year-old Yakut-speaking female with a PMH significant for?cystocele with pessary in place, hx of TIA, osteoarthritis, chronic back pain, and bipolar disorder who is admitted to psychiatry unit for increasing paranoia and delusional behavior. Patient apparently does not feel safe in her current living situation as she states her neighbors upstairs are following her and trying to harm her. Patient placed on section 12. Medical consult for admission H&P. ?Patient denies any current acute medical complaints at this time. Patient is a 63 year old woman who presented to [facility] ER secondary to her sister reporting concerns regarding patient experiencing increased anxiety, paranoia and symptoms of dementia. Plan: CV 15 minute safety checks continue home medications decrease Wellbutrin to 150mg PO daily Start: Risperidal 0.5mg PO BID 11/23: remains with paranoid delusions. c/o suprapubic pain and constipation. dulcolax daily PRN and new UA C&S ordered. T/C increase in risperidone dosing. 11/24: suprapubic pain worse today, no BM after dulcolax x 2. low back pain, post-surgical - start lidocaine patch. Mail Service Coordinator consult for potential pessary complications. increase risperidone from 0.5 BID to 0.5/1. 11/25: pessary removed, suprapubic pain resolved. straight cathed for 350 cc; continue to straight cath as needed. back pain improved with lidocaine patch. had BM last night with some relief, abd xray shows large stool burden. laxatives scheduled for hospitalist. tolerating increase in risperidone. : various somatic complaints remain improved. paranoid delusions continue. sleeping well. agreeable to increase dose of HS risperidone to 1.5 mg. 11/26: continues better physically, no substantial change in paranoid delusions. will contact daughter or sister about staying with one of them post-discharge. planning for discharge sometime next week. 3: remains paranoid. awaiting word from relatives re her dispo options. says she will not return to her apartment. 11/28: continues paranoid. increase HS risperidone from 1.5 mg to 2 mg. 11/29: continues paranoid. no side effects. sleeping well. discharge planning, DC sometime this week. Reason for continued inpatient stay Substantial Risk for: inability to function and rapid decompensation Time Spent With Patient Time: Total time managing care of this patient today __25__ minutes.
[2023-11-30] MEDS: Acetaminophen 325 MG TABLET 975 MG PO (17:11)
[2023-11-30 21:00] VITALS: BP 127/74; PULSE 81; RESP 16; TEMP 36.5; O2SAT 98
[2023-11-30] MEDS: traZODone HCL 50 MG TABLET PO (21:01)
[2023-11-30] MEDS: risperiDONE 2 MG TABLET PO (21:01)
[2023-11-30] MEDS: Sennosides 8.6 MG TABLET 17.2 MG PO (21:01)
[2023-12-01 08:05] VITALS: BP 137/74; PULSE 84; RESP 18; TEMP 35.3; O2SAT 98
[2023-12-01] MEDS: polyethylene glycoL 3350 17 GM POWD.PACK PO (08:49)
[2023-12-01] MEDS: risperiDONE 0.5 MG TABLET PO (08:51)
[2023-12-01] MEDS: Aspirin 81 MG TAB.CHEW PO (08:51)
[2023-12-01] MEDS: Cholecalciferol (Vitamin D3) 25 MCG TABLET 50 MCG PO (08:51)
[2023-12-01] MEDS: buPROPion HCL 75 MG TABLET 150 MG PO (08:52)
[2023-12-01] MEDS: Lidocaine 4 % Patch ADH..PATCH 1 PATCH TRANSDERMA (08:52)
--- NOTE | 2023-12-01 14:06 | HO.PSYCHPN ---
Subjective Subjective Date of Service: 12/01/23 Reason For Visit: bipolar disorder Interim History: calm, cooperative, no complaints or requests. remains unwilling to discharge home. does raise the possibility of discharge to respite and going from respite back to her home, saying she will have to go home eventually. per staff, dep 8 anx 3. bright, visible. taking meds. said year was 1923 and could not identify where she is yesterday. Mental Status Exam Mental Status Exam Narrative: Pt behavior is cooperative, friendly and calm; dressed in casual attire; mood is described as good ; eye contact appropriate; Speech is normal rate, volume and prosody and not pressured; paranoid, delusional; no SI/HI/VH/AH expressed. Diagnostics Vital Signs (24Hr): Vital Signs - 24 hr 11/30/23 21:00 12/01/23 08:05 Temperature 97.7 F 95.5 F L Pulse Rate 81 84 Respiratory Rate 16 18 Blood Pressure 127/74 137/74 Pulse Oximetry 98 98 Oxygen Delivery Method Room Air Room Air BMI result Body Mass Index 18.8 Labs 11/24/23 19:13 11/24/23 19:13 Imaging Radiology Impressions: ITS Impressions Abdomen X-Ray 11/24/23 11:08 IMPRESSION: Large amount of stool in the colon. Nonobstructive bowel gas pattern. Abdomen/Pelvis CT 11/24/23 19:56 IMPRESSION: 1. No convincing evidence of urinary retention. 2. Bibasilar atelectasis with calcified granulomas. 3. Large stool burden. 4. Pessary. 5. Posterior fixation L4-L5 with grade 1 anterolisthesis. Fleischner guidelines were followed. Medications Medications Current Medications Acetaminophen (Acetaminophen 325 Mg Tablet) 975 mg PO Q6H PRN PRN Reason: Headache/Pain Mild Scale (1-3) Last Admin: 11/30/23 17:11 Dose: 975 mg Al Hydroxide/Mg Hydroxide (Magnesium Hydrox/Alum Hydrox 30 Ml Oral.Susp) 30 ml PO Q6H PRN PRN Reason: Heartburn/Nausea Last Admin: 11/24/23 17:53 Dose: 30 ml Aspirin (Aspirin 81 Mg Tab.Chew) 81 mg PO DAILY [facility] Last Admin: 12/01/23 08:51 Dose: 81 mg Bisacodyl (Bisacodyl 5 Mg Tablet.Dr) 10 mg PO DAILY PRN PRN Reason: Constipation Last Admin: 11/24/23 10:00 Dose: 10 mg Bupropion HCl (Bupropion Hcl 75 Mg Tablet) 150 mg PO DAILY [facility] Last Admin: 12/01/23 08:52 Dose: 150 mg Lidocaine (Lidocaine 4 % Patch Adh..Patch) 1 patch TRANSDERMA DAILY [facility]; Protocol Last Admin: 12/01/23 08:52 Dose: 1 patch Magnesium Hydroxide (Milk Of Magnesia 30 Ml Oral.Susp) 30 ml PO DAILY PRN PRN Reason: Constipation Polyethylene Glycol (Polyethylene Glycol 3350 17 Gm Powd.Pack) 17 gm PO DAILY [facility] Last Admin: 12/01/23 08:49 Dose: 17 gm Risperidone (Risperidone 0.5 Mg Tablet) 0.5 mg PO DAILY [facility] Last Admin: 12/01/23 08:51 Dose: 0.5 mg Risperidone (Risperidone 2 Mg Tablet) 2 mg PO BEDTIME [facility] Last Admin: 11/30/23 21:01 Dose: 2 mg Senna (Sennosides 8.6 Mg Tablet) 17.2 mg PO BEDTIME [facility] Last Admin: 11/30/23 21:01 Dose: 17.2 mg Tetrahydrozoline HCl (Tetrahydrozoline Hcl 0.05% Oph 15 Ml Drpbtl) 1 drop EYE-BOTH QID PRN PRN Reason: Dry Eyes Last Admin: 11/27/23 17:56 Dose: 1 drop Trazodone HCl (Trazodone Hcl 50 Mg Tablet) 50 mg PO BEDTIME MRX1 PRN PRN Reason: Insomnia Last Admin: 11/30/23 21:01 Dose: 50 mg Vitamin D (Cholecalciferol (Vitamin D3) 25 Mcg Tablet) 50 mcg PO DAILY [facility] Last Admin: 12/01/23 08:51 Dose: 50 mcg Allergies Allergies Allergy/AdvReac Type Severity Reaction Status Date / Time No Known Allergies Allergy Verified 11/19/23 16:44 Assessment & Plan Assessment & Plan (1) Vaginal abrasion: Status: Acute Code(s): S30.814A - Abrasion of vagina and vulva, initial encounter Assessment and Plan: #2 Ring pessary taken out, vaginal inspection revealed procedure for next and left vaginal wall abrasion secondary to the pessary. Pessary was left out. The patient felt better immediately. Will keep the pessary out for 6-8 weeks, instructions given to patient to call case of vaginal bleeding and /or persistence or worsening of her pain. Follow-up as an outpatient in 6-8 weeks for reinspection and possible pessary insertion. All questions answered, the patient verbalized understanding (2) Dementia: Status: Acute Code(s): F03.90 - Unspecified dementia, unspecified severity, without behavioral disturbance, psychotic disturbance, mood disturbance, and anxiety (3) Psychosis: Status: Acute Code(s): F29 - Unspecified psychosis not due to a substance or known physiological condition Plan Pt is a 63-year-old Setswana-speaking female with a PMH significant for?cystocele with pessary in place, hx of TIA, osteoarthritis, chronic back pain, and bipolar disorder who is admitted to psychiatry unit for increasing paranoia and delusional behavior. Patient apparently does not feel safe in her current living situation as she states her neighbors upstairs are following her and trying to harm her. Patient placed on section 12. Medical consult for admission H&P. ?Patient denies any current acute medical complaints at this time. Patient is a 63 year old woman who presented to [facility] ER secondary to her sister reporting concerns regarding patient experiencing increased anxiety, paranoia and symptoms of dementia. Plan: CV 15 minute safety checks continue home medications decrease Wellbutrin to 150mg PO daily Start: Risperidal 0.5mg PO BID 11/23: remains with paranoid delusions. c/o suprapubic pain and constipation. dulcolax daily PRN and new UA C&S ordered. T/C increase in risperidone dosing. 11/24: suprapubic pain worse today, no BM after dulcolax x 2. low back pain, post-surgical - start lidocaine patch. Traffic Division Commanding Officer consult for potential pessary complications. increase risperidone from 0.5 BID to 0.5/1. 11/25: pessary removed, suprapubic pain resolved. straight cathed for 350 cc; continue to straight cath as needed. back pain improved with lidocaine patch. had BM last night with some relief, abd xray shows large stool burden. laxatives scheduled for hospitalist. tolerating increase in risperidone. : various somatic complaints remain improved. paranoid delusions continue. sleeping well. agreeable to increase dose of HS risperidone to 1.5 mg. 11/26: continues better physically, no substantial change in paranoid delusions. will contact daughter or sister about staying with one of them post-discharge. planning for discharge sometime next week. 11/27: remains paranoid. awaiting word from relatives re her dispo options. says she will not return to her apartment. 11/28: continues paranoid. increase HS risperidone from 1.5 mg to 2 mg. 11/29: continues paranoid. no side effects. sleeping well. discharge planning, DC sometime this week. 11/30: no change in presentation. she does offer option of DC to respite and then DC from respite to her apartment. SW will investigate. Reason for continued inpatient stay Substantial Risk for: inability to function Time Spent With Patient Time: Total time managing care of this patient today __25__ minutes.
[2023-12-01 21:00] VITALS: BP 127/80; PULSE 81; RESP 14; TEMP 36.6; O2SAT 100
[2023-12-01] MEDS: Sennosides 8.6 MG TABLET 17.2 MG PO (21:15)
[2023-12-01] MEDS: risperiDONE 2 MG TABLET PO (21:15)
[2023-12-01] MEDS: traZODone HCL 50 MG TABLET PO (21:15)
[2023-12-02 07:31] VITALS: BP 112/63; PULSE 91; RESP 14; TEMP 36.2; O2SAT 96
[2023-12-02] MEDS: polyethylene glycoL 3350 17 GM POWD.PACK PO (08:34)
[2023-12-02] MEDS: Cholecalciferol (Vitamin D3) 25 MCG TABLET 50 MCG PO (08:35)
[2023-12-02] MEDS: risperiDONE 0.5 MG TABLET PO (08:35)
[2023-12-02] MEDS: buPROPion HCL 75 MG TABLET 150 MG PO (08:35)
[2023-12-02] MEDS: Aspirin 81 MG TAB.CHEW PO (08:35)
[2023-12-02] MEDS: Lidocaine 4 % Patch ADH..PATCH 1 PATCH TRANSDERMA (08:38)
[2023-12-02] MEDS: Tetrahydrozoline HCl 0.05% Oph 15 ML DRPBTL 1 DROP EYE-BOTH (11:30)
--- NOTE | 2023-12-02 13:24 | HO.PSYCHPN ---
Subjective Subjective Date of Service: 12/02/23 Reason For Visit: bipolar disorder Interim History: calm, cooperative. feeling well, emotionally and physically. respite declined pt for unclear reasons. SW now working with family members once again on dispo plan. per staff, denied dep/anx yesterday. brighter. taking meds. tending to ADLs. c/o itchy eyes. attending groups. poor socialization. slept about 7 hours. Mental Status Exam Mental Status Exam Narrative: Pt behavior is cooperative, friendly and calm; dressed in casual attire; mood is described as good ; eye contact appropriate; Speech is normal rate, volume and prosody and not pressured; paranoid, delusional; no SI/HI/VH/AH expressed. Diagnostics Vital Signs (24Hr): Vital Signs - 24 hr 12/01/23 21:00 12/02/23 07:31 Temperature 97.8 F 97.2 F Pulse Rate 81 91 Respiratory Rate 14 14 Blood Pressure 127/80 112/63 Pulse Oximetry 100 96 Oxygen Delivery Method Room Air Room Air BMI result Body Mass Index 18.8 Labs 11/24/23 19:13 11/24/23 19:13 Imaging Radiology Impressions: ITS Impressions Abdomen X-Ray 11/24/23 11:08 IMPRESSION: Large amount of stool in the colon. Nonobstructive bowel gas pattern. Abdomen/Pelvis CT 11/24/23 19:56 IMPRESSION: 1. No convincing evidence of urinary retention. 2. Bibasilar atelectasis with calcified granulomas. 3. Large stool burden. 4. Pessary. 5. Posterior fixation L4-L5 with grade 1 anterolisthesis. Fleischner guidelines were followed. Medications Medications Current Medications Acetaminophen (Acetaminophen 325 Mg Tablet) 975 mg PO Q6H PRN PRN Reason: Headache/Pain Mild Scale (1-3) Last Admin: 11/30/23 17:11 Dose: 975 mg Al Hydroxide/Mg Hydroxide (Magnesium Hydrox/Alum Hydrox 30 Ml Oral.Susp) 30 ml PO Q6H PRN PRN Reason: Heartburn/Nausea Last Admin: 11/24/23 17:53 Dose: 30 ml Artificial Tears (Artificial Tears 15 Ml Drops) 2 drop EYE-BOTH Q4H PRN PRN Reason: dry eyes Aspirin (Aspirin 81 Mg Tab.Chew) 81 mg PO DAILY [facility] Last Admin: 12/02/23 08:35 Dose: 81 mg Bisacodyl (Bisacodyl 5 Mg Tablet.Dr) 10 mg PO DAILY PRN PRN Reason: Constipation Last Admin: 11/24/23 10:00 Dose: 10 mg Bupropion HCl (Bupropion Hcl 75 Mg Tablet) 150 mg PO DAILY [facility] Last Admin: 12/02/23 08:35 Dose: 150 mg Lidocaine (Lidocaine 4 % Patch Adh..Patch) 1 patch TRANSDERMA DAILY [facility]; Protocol Last Admin: 12/02/23 08:38 Dose: 1 patch Magnesium Hydroxide (Milk Of Magnesia 30 Ml Oral.Susp) 30 ml PO DAILY PRN PRN Reason: Constipation Polyethylene Glycol (Polyethylene Glycol 3350 17 Gm Powd.Pack) 17 gm PO DAILY [facility] Last Admin: 12/02/23 08:34 Dose: 17 gm Risperidone (Risperidone 0.5 Mg Tablet) 0.5 mg PO DAILY [facility] Last Admin: 12/02/23 08:35 Dose: 0.5 mg Risperidone (Risperidone 2 Mg Tablet) 2 mg PO BEDTIME [facility] Last Admin: 12/01/23 21:15 Dose: 2 mg Senna (Sennosides 8.6 Mg Tablet) 17.2 mg PO BEDTIME [facility] Last Admin: 12/01/23 21:15 Dose: 17.2 mg Tetrahydrozoline HCl (Tetrahydrozoline Hcl 0.05% Oph 15 Ml Drpbtl) 1 drop EYE-BOTH QID PRN PRN Reason: Dry Eyes Last Admin: 12/02/23 11:30 Dose: 1 drop Trazodone HCl (Trazodone Hcl 50 Mg Tablet) 50 mg PO BEDTIME MRX1 PRN PRN Reason: Insomnia Last Admin: 12/01/23 21:15 Dose: 50 mg Vitamin D (Cholecalciferol (Vitamin D3) 25 Mcg Tablet) 50 mcg PO DAILY [facility] Last Admin: 12/02/23 08:35 Dose: 50 mcg Allergies Allergies Allergy/AdvReac Type Severity Reaction Status Date / Time No Known Allergies Allergy Verified 11/19/23 16:44 Assessment & Plan Assessment & Plan (1) Vaginal abrasion: Status: Acute Code(s): S30.814A - Abrasion of vagina and vulva, initial encounter Assessment and Plan: #2 Ring pessary taken out, vaginal inspection revealed procedure for next and left vaginal wall abrasion secondary to the pessary. Pessary was left out. The patient felt better immediately. Will keep the pessary out for 6-8 weeks, instructions given to patient to call case of vaginal bleeding and /or persistence or worsening of her pain. Follow-up as an outpatient in 6-8 weeks for reinspection and possible pessary insertion. All questions answered, the patient verbalized understanding (2) Dementia: Status: Acute Code(s): F03.90 - Unspecified dementia, unspecified severity, without behavioral disturbance, psychotic disturbance, mood disturbance, and anxiety (3) Psychosis: Status: Acute Code(s): F29 - Unspecified psychosis not due to a substance or known physiological condition Plan Pt is a 63-year-old Tajik-speaking female with a PMH significant for?cystocele with pessary in place, hx of TIA, osteoarthritis, chronic back pain, and bipolar disorder who is admitted to [facility] psychiatry unit for increasing paranoia and delusional behavior. Patient apparently does not feel safe in her current living situation as she states her neighbors upstairs are following her and trying to harm her. Patient placed on section 12. Medical consult for admission H&P. ?Patient denies any current acute medical complaints at this time. Patient is a 63 year old woman who presented to [facility] ER secondary to her sister reporting concerns regarding patient experiencing increased anxiety, paranoia and symptoms of dementia. Plan: CV 15 minute safety checks continue home medications decrease Wellbutrin to 150mg PO daily Start: Risperidal 0.5mg PO BID 11/23: remains with paranoid delusions. c/o suprapubic pain and constipation. dulcolax daily PRN and new UA C&S ordered. T/C increase in risperidone dosing. 11/24: suprapubic pain worse today, no BM after dulcolax x 2. low back pain, post-surgical - start lidocaine patch. Hotel Or Motel Manager consult for potential pessary complications. increase risperidone from 0.5 BID to 0.5/1. 11/25: pessary removed, suprapubic pain resolved. straight cathed for 350 cc; continue to straight cath as needed. back pain improved with lidocaine patch. had BM last night with some relief, abd xray shows large stool burden. laxatives scheduled for hospitalist. tolerating increase in risperidone. : various somatic complaints remain improved. paranoid delusions continue. sleeping well. agreeable to increase dose of HS risperidone to 1.5 mg. 11/26: continues better physically, no substantial change in paranoid delusions. will contact daughter or sister about staying with one of them post-discharge. planning for discharge sometime next week. 11/27: remains paranoid. awaiting word from relatives re her dispo options. says she will not return to her apartment. 11/28: continues paranoid. increase HS risperidone from 1.5 mg to 2 mg. 11/29: continues paranoid. no side effects. sleeping well. discharge planning, DC sometime this week. 11/30: no change in presentation. she does offer option of DC to respite and then DC from respite to her apartment. SW will investigate. 12/01: no change in presentation. respite declined referral. SW once again working with family on dispo plan. Reason for continued inpatient stay Substantial Risk for: inability to function and rapid decompensation Time Spent With Patient Time: Total time managing care of this patient today _25___ minutes.
[2023-12-02 19:40] VITALS: BP 135/68; PULSE 83; RESP 16; TEMP 36.2; O2SAT 99
[2023-12-02] MEDS: risperiDONE 2 MG TABLET PO (21:15)
[2023-12-02] MEDS: Sennosides 8.6 MG TABLET 17.2 MG PO (21:15)
[2023-12-02] MEDS: traZODone HCL 50 MG TABLET PO (21:15)
[2023-12-02] MEDS: Acetaminophen 325 MG TABLET 975 MG PO (21:19)
[2023-12-03] MEDS: diphenhydrAMINE HCL 25 MG CAPSULE 50 MG PO (01:38)
[2023-12-03 07:00] VITALS: BMI 19.0
[2023-12-03] MEDS: polyethylene glycoL 3350 17 GM POWD.PACK PO (08:30)
[2023-12-03] MEDS: buPROPion HCL 75 MG TABLET 150 MG PO (08:30)
[2023-12-03] MEDS: risperiDONE 0.5 MG TABLET PO (08:31)
[2023-12-03] MEDS: Aspirin 81 MG TAB.CHEW PO (08:31)
[2023-12-03] MEDS: Cholecalciferol (Vitamin D3) 25 MCG TABLET 50 MCG PO (08:31)
[2023-12-03] MEDS: Lidocaine 4 % Patch ADH..PATCH 1 PATCH TRANSDERMA (08:32)
--- NOTE | 2023-12-03 11:00 | HO.PSYCHPN ---
Subjective Subjective Date of Service: 12/03/23 Reason For Visit: bipolar disorder Subjective Notes: Conditional Voluntary Interim History: Met with pt and IMKE Moscoso. Pt appears confused as to interview with respite yesterday. She reports she was asked if she smokes, which she says she does not. She reports she did not think that was a program for her. Pt has been presenting with paranoid delusions about her upstairs neighbors. She reports she can hear them but has never seen them. She reports she has gone to the [employer] and seen cars of 3 different colors which she finds suspicious and thinks this is neighbors trying to spy on her. She denies SI/HI. When discussing concerns in terms of her memory and cognitive, she states that's not true, I remember when my mother used to give me a bath. She reports she is at [facility]. She states year is 1923. She report it is November. She is not sure what type of treatment she is receiving here.. states I am taking the same medications here that I was taking at home which is not the case she was started on risperidone for delusions. Diagnostics Vital Signs (24Hr): Vital Signs - 24 hr 12/02/23 19:40 Temperature 97.1 F Pulse Rate 83 Respiratory Rate 16 Blood Pressure 135/68 Pulse Oximetry 99 Oxygen Delivery Method Room Air BMI result Body Mass Index 18.8 Labs 11/24/23 19:13 11/24/23 19:13 Imaging Radiology Impressions: ITS Impressions Abdomen X-Ray 11/24/23 11:08 IMPRESSION: Large amount of stool in the colon. Nonobstructive bowel gas pattern. Abdomen/Pelvis CT 11/24/23 19:56 IMPRESSION: 1. No convincing evidence of urinary retention. 2. Bibasilar atelectasis with calcified granulomas. 3. Large stool burden. 4. Pessary. 5. Posterior fixation L4-L5 with grade 1 anterolisthesis. Fleischner guidelines were followed. Medications Medications Current Medications Acetaminophen (Acetaminophen 325 Mg Tablet) 975 mg PO Q6H PRN PRN Reason: Headache/Pain Mild Scale (1-3) Last Admin: 12/02/23 21:19 Dose: 975 mg Al Hydroxide/Mg Hydroxide (Magnesium Hydrox/Alum Hydrox 30 Ml Oral.Susp) 30 ml PO Q6H PRN PRN Reason: Heartburn/Nausea Last Admin: 11/24/23 17:53 Dose: 30 ml Artificial Tears (Artificial Tears 15 Ml Drops) 2 drop EYE-BOTH Q4H PRN PRN Reason: dry eyes Aspirin (Aspirin 81 Mg Tab.Chew) 81 mg PO DAILY [facility] Last Admin: 12/03/23 08:31 Dose: 81 mg Bisacodyl (Bisacodyl 5 Mg Tablet.Dr) 10 mg PO DAILY PRN PRN Reason: Constipation Last Admin: 11/24/23 10:00 Dose: 10 mg Bupropion HCl (Bupropion Hcl 75 Mg Tablet) 150 mg PO DAILY [facility] Last Admin: 12/03/23 08:30 Dose: 150 mg Lidocaine (Lidocaine 4 % Patch Adh..Patch) 1 patch TRANSDERMA DAILY [facility]; Protocol Last Admin: 12/03/23 08:32 Dose: 1 patch Magnesium Hydroxide (Milk Of Magnesia 30 Ml Oral.Susp) 30 ml PO DAILY PRN PRN Reason: Constipation Polyethylene Glycol (Polyethylene Glycol 3350 17 Gm Powd.Pack) 17 gm PO DAILY [facility] Last Admin: 12/03/23 08:30 Dose: 17 gm Risperidone (Risperidone 0.5 Mg Tablet) 0.5 mg PO DAILY [facility] Last Admin: 12/03/23 08:31 Dose: 0.5 mg Risperidone (Risperidone 2 Mg Tablet) 2 mg PO BEDTIME [facility] Last Admin: 12/02/23 21:15 Dose: 2 mg Senna (Sennosides 8.6 Mg Tablet) 17.2 mg PO BEDTIME [facility] Last Admin: 12/02/23 21:15 Dose: 17.2 mg Tetrahydrozoline HCl (Tetrahydrozoline Hcl 0.05% Oph 15 Ml Drpbtl) 1 drop EYE-BOTH QID PRN PRN Reason: Dry Eyes Last Admin: 12/02/23 11:30 Dose: 1 drop Trazodone HCl (Trazodone Hcl 50 Mg Tablet) 50 mg PO BEDTIME MRX1 PRN PRN Reason: Insomnia Last Admin: 12/02/23 21:15 Dose: 50 mg Vitamin D (Cholecalciferol (Vitamin D3) 25 Mcg Tablet) 50 mcg PO DAILY [facility] Last Admin: 12/03/23 08:31 Dose: 50 mcg Allergies Allergies Allergy/AdvReac Type Severity Reaction Status Date / Time No Known Allergies Allergy Verified 11/19/23 16:44 Assessment & Plan Assessment & Plan (1) Dementia: Status: Acute Code(s): F03.90 - Unspecified dementia, unspecified severity, without behavioral disturbance, psychotic disturbance, mood disturbance, and anxiety Plan Pt is a 63-year-old Sinhala-speaking female with a PMH significant for?cystocele with pessary in place, hx of TIA, osteoarthritis, chronic back pain, and bipolar disorder who is admitted to psychiatry unit for increasing paranoia and delusional behavior. Patient apparently does not feel safe in her current living situation as she states her neighbors upstairs are following her and trying to harm her. Patient placed on section 12. Medical consult for admission H&P. ?Patient denies any current acute medical complaints at this time. Patient is a 63 year old woman who presented to [facility] ER secondary to her sister reporting concerns regarding patient experiencing increased anxiety, paranoia and symptoms of dementia. Plan: CV 15 minute safety checks continue home medications decrease Wellbutrin to 150mg PO daily Start: Risperidal 0.5mg PO BID 11/23: remains with paranoid delusions. c/o suprapubic pain and constipation. dulcolax daily PRN and new UA C&S ordered. T/C increase in risperidone dosing. 11/24: suprapubic pain worse today, no BM after dulcolax x 2. low back pain, post-surgical - start lidocaine patch. Multicultural Manager consult for potential pessary complications. increase risperidone from 0.5 BID to 0.5/1. 11/25: pessary removed, suprapubic pain resolved. straight cathed for 350 cc; continue to straight cath as needed. back pain improved with lidocaine patch. had BM last night with some relief, abd xray shows large stool burden. laxatives scheduled for hospitalist. tolerating increase in risperidone. : various somatic complaints remain improved. paranoid delusions continue. sleeping well. agreeable to increase dose of HS risperidone to 1.5 mg. 11/26: continues better physically, no substantial change in paranoid delusions. will contact daughter or sister about staying with one of them post-discharge. planning for discharge sometime next week. 11/27: remains paranoid. awaiting word from relatives re her dispo options. says she will not return to her apartment. 11/28: continues paranoid. increase HS risperidone from 1.5 mg to 2 mg. 11/29: continues paranoid. no side effects. sleeping well. discharge planning, DC sometime this week. 11/30: no change in presentation. she does offer option of DC to respite and then DC from respite to her apartment. SW will investigate. 12/01: no change in presentation. respite declined referral. SW once again working with family on dispo plan. 12/02: pt presents with year long paranoid delusions, changes in memory and cognitive as reported by family as well as observed on MOCA 20/30. Pending ACL to get better sense of functional cognition. Head CT does show atrophy and microvascular changes. Her pattern of cognitive impairments does have elements of both vascular and AD. She also does not show understanding of medical conditions nor appreciation of risks versus benefits of refusing or accepting treatment- she does not have capacity to make informed medical decisions. recommend MD to invoke HCP. Base on ACL can determine level of support she needs in the community safely transition back home. D/C wellbutrin hoping risperidone will be more effective in treating paranoid delusions and d/c back home. Do not see much therapeutic benefit of referal to respite. Reason for continued inpatient stay Substantial Risk for: inability to function Time Spent With Patient Time: Total time managing care of this patient today ____ minutes.
[2023-12-03 17:38] LABS: Vitamin B12 470 pg/mL (200-900)
[2023-12-03 19:20] VITALS: BP 131/71; PULSE 89; RESP 16; TEMP 36.6; O2SAT 100
[2023-12-03] MEDS: risperiDONE 2 MG TABLET PO (21:55)
[2023-12-03] MEDS: Sennosides 8.6 MG TABLET 17.2 MG PO (21:55)
[2023-12-03] MEDS: traZODone HCL 50 MG TABLET PO (21:55)
[2023-12-04 06:00] VITALS: BP 121/63; PULSE 96; RESP 14; TEMP 36.1; O2SAT 100
[2023-12-04] MEDS: Lidocaine 4 % Patch ADH..PATCH 1 PATCH TRANSDERMA (08:27)
[2023-12-04] MEDS: Cholecalciferol (Vitamin D3) 25 MCG TABLET 50 MCG PO (08:27)
[2023-12-04] MEDS: polyethylene glycoL 3350 17 GM POWD.PACK PO (08:27)
[2023-12-04] MEDS: Aspirin 81 MG TAB.CHEW PO (08:28)
[2023-12-04] MEDS: risperiDONE 0.5 MG TABLET PO (08:28)
--- NOTE | 2023-12-04 14:05 | HO.PSYCHPN ---
Subjective Subjective Date of Service: 12/04/23 Reason For Visit: bipolar disorder Interim History: calm, cooperative. seen with in-home care-deaf and hard of hearing teacher and bookmobile librarian. discuss Dx, med mgmt plan, and dispo plan. per staffm sleot about 8 hours overnight. no issues. Mental Status Exam Mental Status Exam Narrative: Pt behavior is cooperative, friendly and calm; dressed in casual attire; mood is described as good ; eye contact appropriate; Speech is normal rate, volume and prosody and not pressured; paranoid, delusional; no SI/HI/VH/AH expressed. Diagnostics Vital Signs (24Hr): Vital Signs - 24 hr 12/03/23 19:20 12/04/23 06:00 Temperature 97.8 F 96.9 F Pulse Rate 89 96 Respiratory Rate 16 14 Blood Pressure 131/71 121/63 Pulse Oximetry 100 100 Oxygen Delivery Method Room Air Room Air BMI result Body Mass Index 19.0 Labs 11/24/23 19:13 11/24/23 19:13 Labs: Laboratory Results - last 48 hr 12/03/23 14:39 Vitamin B12 470 Imaging Radiology Impressions: ITS Impressions Abdomen X-Ray 11/24/23 11:08 IMPRESSION: Large amount of stool in the colon. Nonobstructive bowel gas pattern. Abdomen/Pelvis CT 11/24/23 19:56 IMPRESSION: 1. No convincing evidence of urinary retention. 2. Bibasilar atelectasis with calcified granulomas. 3. Large stool burden. 4. Pessary. 5. Posterior fixation L4-L5 with grade 1 anterolisthesis. Fleischner guidelines were followed. Head CT 12/03/23 14:02 IMPRESSION: Chronic microvascular ischemic changes with no CT evidence of acute intracranial abnormality. Medications Medications Current Medications Acetaminophen (Acetaminophen 325 Mg Tablet) 975 mg PO Q6H PRN PRN Reason: Headache/Pain Mild Scale (1-3) Last Admin: 12/02/23 21:19 Dose: 975 mg Al Hydroxide/Mg Hydroxide (Magnesium Hydrox/Alum Hydrox 30 Ml Oral.Susp) 30 ml PO Q6H PRN PRN Reason: Heartburn/Nausea Last Admin: 11/24/23 17:53 Dose: 30 ml Artificial Tears (Artificial Tears 15 Ml Drops) 2 drop EYE-BOTH Q4H PRN PRN Reason: dry eyes Aspirin (Aspirin 81 Mg Tab.Chew) 81 mg PO DAILY [facility] Last Admin: 12/04/23 08:28 Dose: 81 mg Bisacodyl (Bisacodyl 5 Mg Tablet.Dr) 10 mg PO DAILY PRN PRN Reason: Constipation Last Admin: 11/24/23 10:00 Dose: 10 mg Lidocaine (Lidocaine 4 % Patch Adh..Patch) 1 patch TRANSDERMA DAILY [facility]; Protocol Last Admin: 12/04/23 08:27 Dose: 1 patch Magnesium Hydroxide (Milk Of Magnesia 30 Ml Oral.Susp) 30 ml PO DAILY PRN PRN Reason: Constipation Polyethylene Glycol (Polyethylene Glycol 3350 17 Gm Powd.Pack) 17 gm PO DAILY [facility] Last Admin: 12/04/23 08:27 Dose: 17 gm Risperidone (Risperidone 0.5 Mg Tablet) 0.5 mg PO DAILY [facility] Last Admin: 12/04/23 08:28 Dose: 0.5 mg Risperidone (Risperidone 2 Mg Tablet) 2 mg PO BEDTIME [facility] Last Admin: 12/03/23 21:55 Dose: 2 mg Senna (Sennosides 8.6 Mg Tablet) 17.2 mg PO BEDTIME [facility] Last Admin: 12/03/23 21:55 Dose: 17.2 mg Tetrahydrozoline HCl (Tetrahydrozoline Hcl 0.05% Oph 15 Ml Drpbtl) 1 drop EYE-BOTH QID PRN PRN Reason: Dry Eyes Last Admin: 12/02/23 11:30 Dose: 1 drop Trazodone HCl (Trazodone Hcl 50 Mg Tablet) 50 mg PO BEDTIME MRX1 PRN PRN Reason: Insomnia Last Admin: 12/03/23 21:55 Dose: 50 mg Vitamin D (Cholecalciferol (Vitamin D3) 25 Mcg Tablet) 50 mcg PO DAILY [facility] Last Admin: 12/04/23 08:27 Dose: 50 mcg Allergies Allergies Allergy/AdvReac Type Severity Reaction Status Date / Time No Known Allergies Allergy Verified 11/19/23 16:44 Assessment & Plan Assessment & Plan (1) Dementia: Status: Acute Code(s): F03.90 - Unspecified dementia, unspecified severity, without behavioral disturbance, psychotic disturbance, mood disturbance, and anxiety Plan Pt is a 63-year-old Pashto-speaking female with a PMH significant for?cystocele with pessary in place, hx of TIA, osteoarthritis, chronic back pain, and bipolar disorder who is admitted to [facility] psychiatry unit for increasing paranoia and delusional behavior. Patient apparently does not feel safe in her current living situation as she states her neighbors upstairs are following her and trying to harm her. Patient placed on section 12. Medical consult for admission H&P. ?Patient denies any current acute medical complaints at this time. Patient is a 63 year old woman who presented to [facility] secondary to her sister reporting concerns regarding patient experiencing increased anxiety, paranoia and symptoms of dementia. Plan: CV 15 minute safety checks continue home medications decrease Wellbutrin to 150mg PO daily Start: Risperidal 0.5mg PO BID 11/23: remains with paranoid delusions. c/o suprapubic pain and constipation. dulcolax daily PRN and new UA C&S ordered. T/C increase in risperidone dosing. 11/24: suprapubic pain worse today, no BM after dulcolax x 2. low back pain, post-surgical - start lidocaine patch. Pipeline Inspector consult for potential pessary complications. increase risperidone from 0.5 BID to 0.5/1. 11/25: pessary removed, suprapubic pain resolved. straight cathed for 350 cc; continue to straight cath as needed. back pain improved with lidocaine patch. had BM last night with some relief, abd xray shows large stool burden. laxatives scheduled for hospitalist. tolerating increase in risperidone. : various somatic complaints remain improved. paranoid delusions continue. sleeping well. agreeable to increase dose of HS risperidone to 1.5 mg. 11/26: continues better physically, no substantial change in paranoid delusions. will contact daughter or sister about staying with one of them post-discharge. planning for discharge sometime next week. 11/27: remains paranoid. awaiting word from relatives re her dispo options. says she will not return to her apartment. 11/28: continues paranoid. increase HS risperidone from 1.5 mg to 2 mg. 11/29: continues paranoid. no side effects. sleeping well. discharge planning, DC sometime this week. 11/30: no change in presentation. she does offer option of DC to respite and then DC from respite to her apartment. SW will investigate. 12/01: no change in presentation. respite declined referral. SW once again working with family on dispo plan. 12/02: pt presents with year long paranoid delusions, changes in memory and cognitive as reported by family as well as observed on MOCA . Pending ACL to get better sense of functional cognition. Head CT does show atrophy and microvascular changes. Her pattern of cognitive impairments does have elements of both vascular and AD. She also does not show understanding of medical conditions nor appreciation of risks versus benefits of refusing or accepting treatment- she does not have capacity to make informed medical decisions. recommend MD to invoke HCP. Base on ACL can determine level of support she needs in the community safely transition back home. D/C wellbutrin hoping risperidone will be more effective in treating paranoid delusions and d/c back home. Do not see much therapeutic benefit of referral to respite. 12/03: DC deferred to allow time for stabilization after medication changes yesterday. planning to discharge thursday. Reason for continued inpatient stay Substantial Risk for: inability to function and rapid decompensation Time Spent With Patient Time: Total time managing care of this patient today __35__ minutes.
[2023-12-04] MEDS: traZODone HCL 50 MG TABLET PO (21:34)
[2023-12-04] MEDS: Sennosides 8.6 MG TABLET 17.2 MG PO (21:34)
[2023-12-04] MEDS: risperiDONE 2 MG TABLET PO (21:34)
[2023-12-05 08:00] VITALS: BP 131/73; PULSE 82; RESP 16; TEMP 36.5; O2SAT 97
[2023-12-05] MEDS: polyethylene glycoL 3350 17 GM POWD.PACK PO (09:18)
[2023-12-05] MEDS: Aspirin 81 MG TAB.CHEW PO (09:20)
[2023-12-05] MEDS: Lidocaine 4 % Patch ADH..PATCH 1 PATCH TRANSDERMA (09:20)
[2023-12-05] MEDS: risperiDONE 0.5 MG TABLET PO (09:20)
[2023-12-05] MEDS: Cholecalciferol (Vitamin D3) 25 MCG TABLET 50 MCG PO (09:20)
--- NOTE | 2023-12-05 11:11 | HO.PSYCHPN ---
Subjective Subjective Date of Service: 12/05/23 Reason For Visit: bipolar disorder Subjective Notes: Conditional Voluntary Interim History: met with patient. Discussed with Nursing. Overall no management issues. Pleasant. Discharge plan for after the weekend. Interviewed using [employer] interpreter services #[id number]. Denied any concerns. Denied depression. No medication issues. Sleeping and eating well. Medication Compliance: Yes Side effects from medications: No Attending Groups: Intermittent Review of Systems Acute medical concerns: No Review of Systems Review of Systems Unremarkable Mental Status Exam Mental Status Exam Narrative: Pt behavior is cooperative, friendly and calm; dressed in casual attire; mood is described as good ; eye contact appropriate; Speech is normal rate, volume and prosody and not pressured; No overt psychosis noted. No SI/HI/VH/AH expressed. Diagnostics Vital Signs (24Hr): Vital Signs - 24 hr 12/05/23 08:00 Temperature 97.7 F Pulse Rate 82 Respiratory Rate 16 Blood Pressure 131/73 Pulse Oximetry 97 Oxygen Delivery Method Room Air BMI result Body Mass Index 19.0 Labs 11/24/23 19:13 11/24/23 19:13 Labs: Laboratory Results - last 48 hr 12/03/23 14:39 Vitamin B12 470 Imaging Radiology Impressions: ITS Impressions Abdomen X-Ray 11/24/23 11:08 IMPRESSION: Large amount of stool in the colon. Nonobstructive bowel gas pattern. Abdomen/Pelvis CT 11/24/23 19:56 IMPRESSION: 1. No convincing evidence of urinary retention. 2. Bibasilar atelectasis with calcified granulomas. 3. Large stool burden. 4. Pessary. 5. Posterior fixation L4-L5 with grade 1 anterolisthesis. Fleischner guidelines were followed. Head CT 12/03/23 14:02 IMPRESSION: Chronic microvascular ischemic changes with no CT evidence of acute intracranial abnormality. Medications Medications Current Medications Acetaminophen (Acetaminophen 325 Mg Tablet) 975 mg PO Q6H PRN PRN Reason: Headache/Pain Mild Scale (1-3) Last Admin: 12/02/23 21:19 Dose: 975 mg Al Hydroxide/Mg Hydroxide (Magnesium Hydrox/Alum Hydrox 30 Ml Oral.Susp) 30 ml PO Q6H PRN PRN Reason: Heartburn/Nausea Last Admin: 11/24/23 17:53 Dose: 30 ml Artificial Tears (Artificial Tears 15 Ml Drops) 2 drop EYE-BOTH Q4H PRN PRN Reason: dry eyes Aspirin (Aspirin 81 Mg Tab.Chew) 81 mg PO DAILY [facility] Last Admin: 12/05/23 09:20 Dose: 81 mg Bisacodyl (Bisacodyl 5 Mg Tablet.Dr) 10 mg PO DAILY PRN PRN Reason: Constipation Last Admin: 11/24/23 10:00 Dose: 10 mg Lidocaine (Lidocaine 4 % Patch Adh..Patch) 1 patch TRANSDERMA DAILY [facility]; Protocol Last Admin: 12/05/23 09:20 Dose: 1 patch Magnesium Hydroxide (Milk Of Magnesia 30 Ml Oral.Susp) 30 ml PO DAILY PRN PRN Reason: Constipation Polyethylene Glycol (Polyethylene Glycol 3350 17 Gm Powd.Pack) 17 gm PO DAILY [facility] Last Admin: 12/05/23 09:18 Dose: 17 gm Risperidone (Risperidone 0.5 Mg Tablet) 0.5 mg PO DAILY [facility] Last Admin: 12/05/23 09:20 Dose: 0.5 mg Risperidone (Risperidone 2 Mg Tablet) 2 mg PO BEDTIME [facility] Last Admin: 12/04/23 21:34 Dose: 2 mg Senna (Sennosides 8.6 Mg Tablet) 17.2 mg PO BEDTIME [facility] Last Admin: 12/04/23 21:34 Dose: 17.2 mg Tetrahydrozoline HCl (Tetrahydrozoline Hcl 0.05% Oph 15 Ml Drpbtl) 1 drop EYE-BOTH QID PRN PRN Reason: Dry Eyes Last Admin: 12/02/23 11:30 Dose: 1 drop Trazodone HCl (Trazodone Hcl 50 Mg Tablet) 50 mg PO BEDTIME MRX1 PRN PRN Reason: Insomnia Last Admin: 12/04/23 21:34 Dose: 50 mg Vitamin D (Cholecalciferol (Vitamin D3) 25 Mcg Tablet) 50 mcg PO DAILY [facility] Last Admin: 12/05/23 09:20 Dose: 50 mcg Allergies Allergies Allergy/AdvReac Type Severity Reaction Status Date / Time No Known Allergies Allergy Verified 11/19/23 16:44 Assessment & Plan Assessment & Plan (1) Dementia: Status: Acute Code(s): F03.90 - Unspecified dementia, unspecified severity, without behavioral disturbance, psychotic disturbance, mood disturbance, and anxiety Plan Pt is a 63-year-old Surinamese-speaking female with a PMH significant for?cystocele with pessary in place, hx of TIA, osteoarthritis, chronic back pain, and bipolar disorder who is admitted to psychiatry unit for increasing paranoia and delusional behavior. Patient apparently does not feel safe in her current living situation as she states her neighbors upstairs are following her and trying to harm her. Patient placed on section 12. Medical consult for admission H&P. ?Patient denies any current acute medical complaints at this time. Patient is a 63 year old woman who presented to [facility] ER secondary to her sister reporting concerns regarding patient experiencing increased anxiety, paranoia and symptoms of dementia. Plan: CV 15 minute safety checks continue home medications decrease Wellbutrin to 150mg PO daily Start: Risperidal 0.5mg PO BID 11/23: remains with paranoid delusions. c/o suprapubic pain and constipation. dulcolax daily PRN and new UA C&S ordered. T/C increase in risperidone dosing. 11/24: suprapubic pain worse today, no BM after dulcolax x 2. low back pain, post-surgical - start lidocaine patch. Gis Technician consult for potential pessary complications. increase risperidone from 0.5 BID to 0.5/1. 11/25: pessary removed, suprapubic pain resolved. straight cathed for 350 cc; continue to straight cath as needed. back pain improved with lidocaine patch. had BM last night with some relief, abd xray shows large stool burden. laxatives scheduled for hospitalist. tolerating increase in risperidone. : various somatic complaints remain improved. paranoid delusions continue. sleeping well. agreeable to increase dose of HS risperidone to 1.5 mg. 11/26: continues better physically, no substantial change in paranoid delusions. will contact daughter or sister about staying with one of them post-discharge. planning for discharge sometime next week. 11/27: remains paranoid. awaiting word from relatives re her dispo options. says she will not return to her apartment. 11/28: continues paranoid. increase HS risperidone from 1.5 mg to 2 mg. 11/29: continues paranoid. no side effects. sleeping well. discharge planning, DC sometime this week. 11/30: no change in presentation. she does offer option of DC to respite and then DC from respite to her apartment. SW will investigate. 12/01: no change in presentation. respite declined referral. SW once again working with family on dispo plan. 12/02: pt presents with year long paranoid delusions, changes in memory and cognitive as reported by family as well as observed on MOCA . Pending ACL to get better sense of functional cognition. Head CT does show atrophy and microvascular changes. Her pattern of cognitive impairments does have elements of both vascular and AD. She also does not show understanding of medical conditions nor appreciation of risks versus benefits of refusing or accepting treatment- she does not have capacity to make informed medical decisions. recommend MD to invoke HCP. Base on ACL can determine level of support she needs in the community safely transition back home. D/C wellbutrin hoping risperidone will be more effective in treating paranoid delusions and d/c back home. Do not see much therapeutic benefit of referral to respite. 12/03: DC deferred to allow time for stabilization after medication changes yesterday. planning to discharge thursday. 12/05/2023: No changes Reason for continued inpatient stay Substantial Risk for: rapid decompensation Time Spent With Patient Time: Total time managing care of this patient today ____ minutes.
[2023-12-05] MEDS: Tetrahydrozoline HCl 0.05% Oph 15 ML DRPBTL 1 DROP EYE-BOTH (11:28)
[2023-12-05 19:50] VITALS: BP 136/73; PULSE 92; RESP 16; TEMP 36.5; O2SAT 98
[2023-12-05] MEDS: Sennosides 8.6 MG TABLET 17.2 MG PO (21:06)
[2023-12-05] MEDS: risperiDONE 2 MG TABLET PO (21:06)
[2023-12-05] MEDS: traZODone HCL 50 MG TABLET PO (21:06)
[2023-12-06 07:45] VITALS: BP 134/72; PULSE 81; RESP 14; TEMP 36.5; O2SAT 95
[2023-12-06] MEDS: Cholecalciferol (Vitamin D3) 25 MCG TABLET 50 MCG PO (09:10)
[2023-12-06] MEDS: risperiDONE 0.5 MG TABLET PO (09:10)
[2023-12-06] MEDS: polyethylene glycoL 3350 17 GM POWD.PACK PO (09:10)
[2023-12-06] MEDS: Aspirin 81 MG TAB.CHEW PO (09:10)
[2023-12-06] MEDS: Lidocaine 4 % Patch ADH..PATCH 1 PATCH TRANSDERMA (09:10)
--- NOTE | 2023-12-06 14:12 | P.PNPSI_ITS ---
Subjective Subjective Date of Service: 12/06/23 Reason For Visit: bipolar disorder Subjective Notes: Conditional Voluntary Interim History: Met with patient. Discussed with Nursing. Overall no management issues. Pleasant. Discharge planned for Thursday. No depression, agitation, SI, med concerns etc.. Medication Compliance: Yes Side effects from medications: No Attending Groups: Yes Review of Systems Acute medical concerns: No Review of Systems Review of Systems Unremarkable Mental Status Exam Mental Status Exam Narrative: Pt behavior is cooperative, friendly and calm; dressed in casual attire; mood is described as good ; eye contact appropriate; Speech is normal rate, volume and prosody and not pressured; No overt psychosis noted. No SI/HI/VH/AH expressed. Diagnostics Vital Signs (24Hr): Vital Signs - 24 hr 12/05/23 19:50 12/06/23 07:45 Temperature 97.7 F 97.7 F Pulse Rate 92 81 Respiratory Rate 16 14 Blood Pressure 136/73 134/72 Pulse Oximetry 98 95 Oxygen Delivery Method Room Air Room Air BMI result Body Mass Index 19.0 Labs 11/24/23 19:13 11/24/23 19:13 Imaging Radiology Impressions: ITS Impressions Abdomen X-Ray 11/24/23 11:08 IMPRESSION: Large amount of stool in the colon. Nonobstructive bowel gas pattern. Abdomen/Pelvis CT 11/24/23 19:56 IMPRESSION: 1. No convincing evidence of urinary retention. 2. Bibasilar atelectasis with calcified granulomas. 3. Large stool burden. 4. Pessary. 5. Posterior fixation L4-L5 with grade 1 anterolisthesis. Fleischner guidelines were followed. Head CT 12/03/23 14:02 IMPRESSION: Chronic microvascular ischemic changes with no CT evidence of acute intracranial abnormality. Medications Medications Current Medications Acetaminophen (Acetaminophen 325 Mg Tablet) 975 mg PO Q6H PRN PRN Reason: Headache/Pain Mild Scale (1-3) Last Admin: 12/02/23 21:19 Dose: 975 mg Al Hydroxide/Mg Hydroxide (Magnesium Hydrox/Alum Hydrox 30 Ml Oral.Susp) 30 ml PO Q6H PRN PRN Reason: Heartburn/Nausea Last Admin: 11/24/23 17:53 Dose: 30 ml Artificial Tears (Artificial Tears 15 Ml Drops) 2 drop EYE-BOTH Q4H PRN PRN Reason: dry eyes Aspirin (Aspirin 81 Mg Tab.Chew) 81 mg PO DAILY [facility] Last Admin: 12/06/23 09:10 Dose: 81 mg Bisacodyl (Bisacodyl 5 Mg Tablet.Dr) 10 mg PO DAILY PRN PRN Reason: Constipation Last Admin: 11/24/23 10:00 Dose: 10 mg Lidocaine (Lidocaine 4 % Patch Adh..Patch) 1 patch TRANSDERMA DAILY [facility]; Protocol Last Admin: 12/06/23 09:10 Dose: 1 patch Magnesium Hydroxide (Milk Of Magnesia 30 Ml Oral.Susp) 30 ml PO DAILY PRN PRN Reason: Constipation Polyethylene Glycol (Polyethylene Glycol 3350 17 Gm Powd.Pack) 17 gm PO DAILY [facility] Last Admin: 12/06/23 09:10 Dose: 17 gm Risperidone (Risperidone 0.5 Mg Tablet) 0.5 mg PO DAILY [facility] Last Admin: 12/06/23 09:10 Dose: 0.5 mg Risperidone (Risperidone 2 Mg Tablet) 2 mg PO BEDTIME [facility] Last Admin: 12/05/23 21:06 Dose: 2 mg Senna (Sennosides 8.6 Mg Tablet) 17.2 mg PO BEDTIME [facility] Last Admin: 12/05/23 21:06 Dose: 17.2 mg Tetrahydrozoline HCl (Tetrahydrozoline Hcl 0.05% Oph 15 Ml Drpbtl) 1 drop EYE- BOTH QID PRN PRN Reason: Dry Eyes Last Admin: 12/05/23 11:28 Dose: 1 drop Trazodone HCl (Trazodone Hcl 50 Mg Tablet) 50 mg PO BEDTIME MRX1 PRN PRN Reason: Insomnia Last Admin: 12/05/23 21:06 Dose: 50 mg Vitamin D (Cholecalciferol (Vitamin D3) 25 Mcg Tablet) 50 mcg PO DAILY [facility] Last Admin: 12/06/23 09:10 Dose: 50 mcg Allergies Allergies Allergy/AdvReac Type Severity Reaction Status Date / Time No Known Allergies Allergy Verified 11/19/23 16:44 Assessment & Plan Assessment & Plan (1) Dementia: Status: Acute Code(s): F03.90 - Unspecified dementia, unspecified severity, without behavioral disturbance, psychotic disturbance, mood disturbance, and anxiety Plan Pt is a 63-year-old Maori-speaking female with a PMH significant for?cystocele with pessary in place, hx of TIA, osteoarthritis, chronic back pain, and bipolar disorder who is admitted to psychiatry unit for increasing paranoia and delusional behavior. Patient apparently does not feel safe in her current living situation as she states her neighbors upstairs are following her and trying to harm her. Patient placed on section 12. Medical consult for admission H&P. ?Patient denies any current acute medical complaints at this time. Patient is a 63 year old woman who presented to [facility] secondary to her sister reporting concerns regarding patient experiencing increased anxiety, paranoia and symptoms of dementia. Plan: CV 15 minute safety checks continue home medications decrease Wellbutrin to 150mg PO daily Start: Risperidal 0.5mg PO BID 11/23: remains with paranoid delusions. c/o suprapubic pain and constipation. dulcolax daily PRN and new UA C&S ordered. T/C increase in risperidone dosing. 11/24: suprapubic pain worse today, no BM after dulcolax x 2. low back pain, post-surgical - start lidocaine patch. Manager Rehab consult for potential pessary complications. increase risperidone from 0.5 BID to 0.5/1. 11/25: pessary removed, suprapubic pain resolved. straight cathed for 350 cc; continue to straight cath as needed. back pain improved with lidocaine patch. had BM last night with some relief, abd xray shows large stool burden. laxatives scheduled for hospitalist. tolerating increase in risperidone. : various somatic complaints remain improved. paranoid delusions continue. sleeping well. agreeable to increase dose of HS risperidone to 1.5 mg. 11/26: continues better physically, no substantial change in paranoid delusions. will contact daughter or sister about staying with one of them post-discharge. planning for discharge sometime next week. 11/27: remains paranoid. awaiting word from relatives re her dispo options. says she will not return to her apartment. 11/28: continues paranoid. increase HS risperidone from 1.5 mg to 2 mg. 11/29: continues paranoid. no side effects. sleeping well. discharge planning, DC sometime this week. 11/30: no change in presentation. she does offer option of DC to respite and then DC from respite to her apartment. SW will investigate. 12/01: no change in presentation. respite declined referral. SW once again working with family on dispo plan. 12/02: pt presents with year long paranoid delusions, changes in memory and cognitive as reported by family as well as observed on MOCA . Pending ACL to get better sense of functional cognition. Head CT does show atrophy and microvascular changes. Her pattern of cognitive impairments does have elements of both vascular and AD. She also does not show understanding of medical conditions nor appreciation of risks versus benefits of refusing or accepting treatment- she does not have capacity to make informed medical decisions. recommend MD to invoke HCP. Base on ACL can determine level of support she needs in the community safely transition back home. D/C wellbutrin hoping risperidone will be more effective in treating paranoid delusions and d/c back home. Do not see much therapeutic benefit of referral to respite. 12/03: DC deferred to allow time for stabilization after medication changes yesterday. planning to discharge thursday. 12/06/2023: No changes Reason for continued inpatient stay Substantial Risk for: rapid decompensation Time Spent With Patient Time: Total time managing care of this patient today ____ minutes.
[2023-12-06 19:50] VITALS: BP 119/66; PULSE 91; RESP 16; TEMP 37; O2SAT 96
[2023-12-06] MEDS: risperiDONE 2 MG TABLET PO (20:52)
[2023-12-06] MEDS: Sennosides 8.6 MG TABLET 17.2 MG PO (20:52)
[2023-12-07] MEDS: traZODone HCL 50 MG TABLET PO (00:57)
[2023-12-07 08:25] VITALS: BP 151/72; PULSE 72; RESP 14; TEMP 36.6; O2SAT 98
[2023-12-07] MEDS: Aspirin 81 MG TAB.CHEW PO (10:04)
[2023-12-07] MEDS: Cholecalciferol (Vitamin D3) 25 MCG TABLET 50 MCG PO (10:05)
[2023-12-07] MEDS: Lidocaine 4 % Patch ADH..PATCH 1 PATCH TRANSDERMA (10:05)
[2023-12-07] MEDS: risperiDONE 0.5 MG TABLET PO (10:05)
[2023-12-07] MEDS: polyethylene glycoL 3350 17 GM POWD.PACK PO (10:05)
--- NOTE | 2023-12-07 10:08 | PM.PSYDC ---
DS: Providers Provider Date of Service: 12/07/23 Date of admission: 11/19/23 19:31 Primary care physician: LUPILLO Chavez Consults: 11/20/23 01:48 Consult to Hospitalist Routine Comment: Consulting Provider: Hospitalist Reason For Exam: H&P, from [facility] ED 11/24/23 15:16 Consult to Obstetrics / Gynecology Routine Consulting Provider: Al Javier Reason for consultation: pessary. suprapubic pain. constipation. Has provider been notified: Yes DS: Diagnosis Discharge Diagnosis (1) Dementia: Status: Acute DS: Medications Discharge Medications Home Medications: Home Medications Medication Instructions Recorded Confirmed aspirin 81 mg tablet,delayed 81 mg PO DAILY 11/19/23 11/19/23 release cholecalciferol (vitamin D3) 50 50 mcg PO DAILY 11/19/23 11/19/23 mcg (2,000 unit) capsule (Vitamin D3) hydroxyzine HCl 25 mg tablet 25 mg PO Q6H PRN anxiety 11/19/23 11/19/23 Previous Rx's Medication Instructions Recorded lidocaine 4 % topical patch 1 patch transdermal DAILY 30 days 12/07/23 (Lidocaine Pain Relief) #30 ea polyethylene glycol 3350 17 gram 17 g PO DAILY 30 days #30 ea 12/07/23 oral powder packet risperidone 0.5 mg tablet 0.5 mg PO DAILY 30 days #30 tabs 12/07/23 risperidone 2 mg tablet 2 mg PO BEDTIME 30 days #30 tabs 12/07/23 sennosides 8.6 mg tablet (Senna 17.2 mg (2 x 8.6 mg) PO BEDTIME 30 12/07/23 Lax) days #60 tabs tetrahydrozoline 0.05 % eye drops 1 drp ophthalmic (eye) QID PRN Dry 12/07/23 (Eye Drops (tetrahydrozoline)) Eyes 30 days #30 mL trazodone 50 mg tablet 50 mg PO BEDTIME PRN Insomnia 30 12/07/23 days #30 tabs Mental Status Exam Mental Status Exam Narrative: Pt behavior is cooperative, friendly and calm; dressed in casual attire; mood is described as happy ; eye contact appropriate; Speech is normal rate, volume and prosody and not pressured; paranoid, delusional; no SI/HI/VH/AH. Data Data Completed and Pending Completed studies during hospitalization [Text1]: 12/03/23 14:39 Vitamin B12 470 Imaging Diagnostic Imaging Impressions Abdomen X-Ray 11/24/23 11:08 IMPRESSION: Large amount of stool in the colon. Nonobstructive bowel gas pattern. Abdomen/Pelvis CT 11/24/23 19:56 IMPRESSION: 1. No convincing evidence of urinary retention. 2. Bibasilar atelectasis with calcified granulomas. 3. Large stool burden. 4. Pessary. 5. Posterior fixation L4-L5 with grade 1 anterolisthesis. Fleischner guidelines were followed. Head CT 12/03/23 14:02 IMPRESSION: Chronic microvascular ischemic changes with no CT evidence of acute intracranial abnormality. DS: Summary Hospital Course Hospital Course: per 11/20 admission note: Patient is a 63 year old woman who presented to [facility] secondary to her sister reporting concerns regarding patient experiencing increased anxiety, paranoia and symptoms of dementia. Per crisis report, pt has been crying uncontrollably, feeling afraid of the noises and voices she has been hearing from her upstairs neighbors, to the point where she will only sleep on her couch and not in her bedroom. She has also lost 20lbs in the past two months. Per her SENIOR APPLICATION SOFTWARE ENGINEER, there is only one man who lives above patients apartment and she has not heard him making noise. Patient reports the voices increase when her SENIOR APPLICATION SOFTWARE ENGINEER leaves for the afternoon and she is by herself. She reports the voices tell her she has done things that she has not and she is afraid to talk loudly d/t fear she is being listened to, fear she is being followed and her phone being hacked. Patient does not have a hx of psychiatric inpatient hospitalizations. In 2019, pt was evaluated by [facility] d/t feeling anxious, depressed and paranoid about her neighbors doing illegal things. pt denies any substance abuse. During admission assessment, fire pot operator and social science manager (Anant) present. Pt reports feeling anxious today; pt stated, I came to the hospital to see a doctor that works in psychiatry. My neighbors who live upstairs are my problem. I feel nervous. At night they throw things and are loud. I stopped using my phone because I think they were hacking it . Pt reports she has been losing weight over the past few months d/t the stress and not being hungry. She reports being medication compliant. denies SI/HI/VH/AH. Past Psychiatric History: [facility] care: Christina Davis Therapist [facility]: Mani Stoner Prescriber: Arleen Zhou at [facility] Pt does not have hx of psychiatric hospitalizations. Medical Evaluation Reviewed: Yes [facility] Family History: Sister: alzheimerpedro luis Social History: lives alone with her dog in an apartment. . has 3 children. Substance History: denies Trauma History: yes Precis: Pt is a 63-year-old Jordanian-speaking female with a PMH significant for?cystocele with pessary in place, hx of TIA, osteoarthritis, chronic back pain, and bipolar disorder who is admitted to psychiatry unit for increasing paranoia and delusional behavior. Patient apparently does not feel safe in her current living situation as she states her neighbors upstairs are following her and trying to harm her. Patient placed on section 12. Medical consult for admission H&P. ?Patient denies any current acute medical complaints at this time. Patient is a 63 year old woman who presented to [facility] ER secondary to her sister reporting concerns regarding patient experiencing increased anxiety, paranoia and symptoms of dementia. 11/20: continue home medications. decrease Wellbutrin to 150mg PO daily. Start: Risperidal 0.5mg PO BID 11/23: remains with paranoid delusions. c/o suprapubic pain and constipation. dulcolax daily PRN and new UA C&S ordered. T/C increase in risperidone dosing. 11/24: suprapubic pain worse today, no BM after dulcolax x 2. low back pain, post-surgical - start lidocaine patch. Supervisor [employer] consult for potential pessary complications. increase risperidone from 0.5 BID to 0.5/1. 11/25: pessary removed, suprapubic pain resolved. straight cathed for 350 cc; continue to straight cath as needed. back pain improved with lidocaine patch. had BM last night with some relief, abd xray shows large stool burden. laxatives scheduled for hospitalist. tolerating increase in risperidone. : various somatic complaints remain improved. paranoid delusions continue. sleeping well. agreeable to increase dose of HS risperidone to 1.5 mg. 11/26: continues better physically, no substantial change in paranoid delusions. will contact daughter or sister about staying with one of them post-discharge. planning for discharge sometime next week. 11/27: remains paranoid. awaiting word from relatives re her dispo options. says she will not return to her apartment. 11/28: continues paranoid. increase HS risperidone from 1.5 mg to 2 mg. 11/29: continues paranoid. no side effects. sleeping well. discharge planning, DC sometime this week. 11/30: no change in presentation. she does offer option of DC to respite and then DC from respite to her apartment. SW will investigate. 12/01: no change in presentation. respite declined referral. SW once again working with family on dispo plan. 12/02: pt presents with year long paranoid delusions, changes in memory and cognitive as reported by family as well as observed on MOCA . Pending ACL to get better sense of functional cognition. Head CT does show atrophy and microvascular changes. Her pattern of cognitive impairments does have elements of both vascular and AD. She also does not show understanding of medical conditions nor appreciation of risks versus benefits of refusing or accepting treatment- she does not have capacity to make informed medical decisions. recommend MD to invoke HCP. Base on ACL can determine level of support she needs in the community safely transition back home. D/C wellbutrin hoping risperidone will be more effective in treating paranoid delusions and d/c back home. Do not see much therapeutic benefit of referral to respite. 12/03: DC deferred to allow time for stabilization after medication changes yesterday. planning to discharge thursday. 12/05: No changes 12/06: stable. meds reviewed, reconciled, prescribed. denies safety concerns. discharged as per plan. Time Spent with Patient Time attestation: Total time managing care of this patient today __35__ minutes. Discharge Plan Discharge Anticipated Discharge Date/Time: 12/07/23 11:00 Patient Disposition: Home, Self-Care Discharge Diagnosis: Dementia with behavioral disturbance PTSD, Chronic Referrals: Therapy Intake: Chelsie Najera ([facility]) [Other] - 12/08/23 10:00 am (La tonia es en persona en la oficina de la direcci?n anterior en [place].) Psychiatry: Asmita Hebert ([facility]) [Other] - 12/29/23 9:00 am (La tonia es en persona en la oficina de la direcci?n anterior en [place].) PCP: Josselyn Smyth ([facility]) [Other] - 12/25/23 10:00 am (La tonia es presencial en la oficina; No olviden traer a esta tonia el disco con la imagen de tomograf?a computarizada de carlotta para que lo agreguen a juliana registros. Se pidi? a [facility] que derivara a Lily a la Cl?melany de [facility] y dijo que pod?an hacerlo cuando trevon acudiera a orta tonia. El n?nyasia de la Cl?melany de [facility] es [phone] y orta fax es [phone].) Discharge Medications: New trazodone 50 mg Tablet 50 mg PO BEDTIME PRN (Reason: Insomnia) 30 Days Qty: 30 0RF tetrahydrozoline [Eye Drops (tetrahydrozoline)] 0.05 % Drops 1 drp ophthalmic (eye) QID PRN (Reason: Dry Eyes) 30 Days Qty: 30 0RF risperidone 2 mg Tablet 2 mg PO BEDTIME 30 Days Qty: 30 0RF risperidone 0.5 mg Tablet 0.5 mg PO DAILY 30 Days Qty: 30 0RF polyethylene glycol 3350 17 gram Powder In Packet 17 g PO DAILY 30 Days Qty: 30 0RF sennosides [Senna Lax] 8.6 mg Tablet 17.2 mg PO BEDTIME 30 Days Qty: 60 0RF lidocaine [Lidocaine Pain Relief] 4 % Adhesive Patch,Medicated 1 patch transdermal DAILY 30 Days Qty: 30 0RF Protocol: Apply to: Apply to: lower back Continued aspirin 81 mg tablet,delayed release (DR/EC) 81 mg PO DAILY hydroxyzine HCl 25 mg tablet 25 mg PO Q6H PRN (Reason: anxiety) cholecalciferol (vitamin D3) [Vitamin D3] 50 mcg (2,000 unit) Capsule 50 mcg PO DAILY Discontinued quetiapine 25 mg tablet 25 - 50 mg PO BEDTIME PRN (Reason: Anxiety) bupropion HCl 200 mg tablet sustained-release 12 hr 200 mg PO BID Discharge Orders: Discharge Order (Routine); Ordered 12/07/23 Ordered By: Giuliano Avalos Diet: Advance to usual diet Activity on Discharge: As tolerated Stand Alone Forms: Patient Portal Discharge page, Community Support Print Language: Jordanian Care Plan Goals: remain safe and stable in the outpatient treatment setting Health Concerns: none Plan of Treatment: take medications as prescribed, attend appointments as scheduled Assessment: not at imminent risk of harm to self or others Discharge Date/Time: 12/07/23 11:24
[2023-12-07] MEDS: Acetaminophen 325 MG TABLET 975 MG PO (10:20)
== END 2023-12-07 11:24 | disposition home or self-care (01) | DRG 882 ==
PROVIDERS: Physician Assistant; Social Worker; Admitting Provider Psychiatry & Neurology Psychiatry; PCP Physician Assistant; Visit Provider Psychiatry & Neurology Psychiatry
DX: F43.12 Post-traumatic stress disorder, chronic (principal); F03.918 Unspecified dementia, unspecified severity, with other behavioral disturbance; T85.9XXA Unspecified complication of internal prosthetic device, implant and graft, initial encounter; S30.814A Abrasion of vagina and vulva, initial encounter; Y73.1 Therapeutic (nonsurgical) and rehabilitative gastroenterology and urology devices associated with adverse incidents; Z86.73 Personal history of transient ischemic attack (TIA), and cerebral infarction without residual deficits; Z79.82 Long term (current) use of aspirin; Z79.899 Other long term (current) drug therapy
CPT/HCPCS: 36415; 70450; 74018; 74176; 80048; 81003; 82607; 85025; 85652; 86140

== ENCOUNTER → 2023-11-19 19:31 | Outpatient (BNV) | payer OTHER, SELFPAY | PROVIDERS: Admitting Provider Psychiatry & Neurology Psychiatry; Visit Provider Obstetrics & Gynecology | DX: S30.814A Abrasion of vagina and vulva, initial encounter (principal) | CPT/HCPCS: 99222 ==

== ENCOUNTER → 2023-11-19 19:31 | Outpatient (BNV) | payer OTHER, SELFPAY | PROVIDERS: Admitting Provider Psychiatry & Neurology Psychiatry; Visit Provider Psychiatry & Neurology Psychiatry | DX: F03.90 Unspecified dementia, unspecified severity, without behavioral disturbance, psychotic disturbance, mood disturbance, and anxiety (principal) | CPT/HCPCS: 90792; 99231; 99232; 99239 ==

== ENCOUNTER → 2023-11-19 19:31 | Outpatient (BNV) | payer OTHER, SELFPAY | PROVIDERS: Admitting Provider Psychiatry & Neurology Psychiatry; Visit Provider Student in an Organized Health Care Education/Training Program | DX: Z02.2 Encounter for examination for admission to residential institution (principal) | CPT/HCPCS: 99429; 99499 ==

== ENCOUNTER 2023-12-12 21:38 | Emergency (ER) | payer OTHER, SELFPAY ==
[2023-12-12 21:49] VITALS: BP 136/80; PULSE 76; RESP 16; TEMP 36.7; O2SAT 98; BMI 20.3
[2023-12-12 22:21] VITALS: BP 124/77; PULSE 75; RESP 16; TEMP 36.6; O2SAT 97
[2023-12-12 22:26] VITALS: BP 176/63; PULSE 70; RESP 14; O2SAT 98
--- NOTE | 2023-12-12 23:25 | ED_ITS ---
HPI - Psych General Chief Complaint: Psychiatric Symptoms Stated Complaint: hallucinations Time Seen by Provider: 12/12/23 23:20 Source: patient Mode of arrival: ambulatory Limitations: no limitations History of Present Illness HPI Narrative: Patient comes to the emergency room by private vehicle. Patient was dropped off by her daughter. According to the patient, patient was discharged from 5 days ago. Since then, patient has had trouble sleeping, has been very anxious. Patient states that she can not sleep because her neighbors that leave above her are very loud, threw stuff on the ground, patient gets startled and gets very anxious. Patient lives by herself. According to the patient's nurse report, the patient's daughter reported that the patient has been hearing voices, hallucinating that there people chasing her in her apartment. Patient denies suicidal homicidal ideation. Related Data Home Medications Medication Instructions Recorded Confirmed aspirin 81 mg tablet,delayed 81 mg PO DAILY 11/19/23 11/19/23 release cholecalciferol (vitamin D3) 50 50 mcg PO DAILY 11/19/23 11/19/23 mcg (2,000 unit) capsule (Vitamin D3) hydroxyzine HCl 25 mg tablet 25 mg PO Q6H PRN anxiety 11/19/23 11/19/23 Previous Rx's Medication Instructions Recorded lidocaine 4 % topical patch 1 patch transdermal DAILY 30 days 12/07/23 (Lidocaine Pain Relief) #30 ea polyethylene glycol 3350 17 gram 17 g PO DAILY 30 days #30 ea 12/07/23 oral powder packet risperidone 0.5 mg tablet 0.5 mg PO DAILY 30 days #30 tabs 12/07/23 risperidone 2 mg tablet 2 mg PO BEDTIME 30 days #30 tabs 12/07/23 sennosides 8.6 mg tablet (Senna 17.2 mg (2 x 8.6 mg) PO BEDTIME 30 12/07/23 Lax) days #60 tabs tetrahydrozoline 0.05 % eye drops 1 drp ophthalmic (eye) QID PRN Dry 12/07/23 (Eye Drops (tetrahydrozoline)) Eyes 30 days #30 mL trazodone 50 mg tablet 50 mg PO BEDTIME PRN Insomnia 30 12/07/23 days #30 tabs Allergies Allergy/AdvReac Type Severity Reaction Status Date / Time No Known Allergies Allergy Verified 12/12/23 21:48 Review of Systems 2 Review of Systems: Constitutional : No Weight loss, No Fever, No Chills, No Night Sweats, No Fatigue, No Malaise ENT/Mouth : No Hearing loss, No Ear Pain, No Nasal Congestion, No Sinus Pain, No Hoarseness, No sore throat, No Rhinorrhea, No Swallowing Difficulty Eyes: No Eye Pain, No Swelling, No Redness, No Foreign Body, No Discharge, No Vision Changes Cardiovascular : No Chest Pain, No SOB, No Dyspnea on Exertion, No Orthopnea, No Edema, No Palpitations Respiratory : No Cough, No Sputum, No Wheezing, No Smoke Exposure, No Dyspnea Gastrointestinal : No Nausea, No Vomiting, No Diarrhea, No Constipation, No abdominal Pain, No Hematochezia, No Melena Genitourinary : no irregular bleeding, No Dysuria, No Urinary Frequency, No Hematuria, No Urinary Incontinence, No Urgency, No Flank Pain, No Urinary Flow Changes, No Hesitancy Musculoskeletal : No joint pain, No Myalgias, No Joint Swelling Skin : No Skin Lesions, No rash Neuro : No Weakness, No Numbness, No Paresthesias, No Loss of Consciousness, No Dizziness, No Headache Psych : Patient denies SI or HI, complaining of anxiety. States that she feels fearful with all day noises in her apartment, scared to leave by herself Heme/Lymph: No Bruising, No Bleeding,No Lymphadenopathy Endocrine : No Polyuria, No Polydipsia, No Temperature Intolerance PMFSH Past Medical History Medical History TIA (transient ischemic attack) Bipolar disorder Social History Social History Household Members: Other Household Members Other:: dog Housing: Apartment Comment: not high fall risk Patient Tobacco Use Status: Never used Tobacco Smoked in Last 30 Days: No Use of substances other than those prescribed or required for medical reasons: No Advance Directives: Yes Advance Directives on File: Yes Advance Directives Date on File: 12/08/23 Patient : No service: No Sexual orientation: Straight/Heterosexual Physical Exam 2 Vital Signs: Vital Signs: Last Vital Signs Temp 97.9 F 12/12/23 22:21 Pulse 70 12/12/23 22:26 Resp 14 12/12/23 22:26 BP 176/63 H 12/12/23 22:26 Pulse Ox 98 12/12/23 22:26 O2 Del Method Room Air 12/12/23 22:26 BMI result Body Mass Index 20.3 Const: Other: Appearance: Alert. Oriented X3. No acute distress. Eyes: Pupils equal, round and reactive to light. ENT: Pharynx normal. Neck: Normal inspection. Neck supple. No lymph nodes noted. No crepitus CVS: Normal heart rate and rhythm. Pulses normal. Normal S1 and S2 Respiratory: No respiratory distress. Breath sounds normal. No Wheezing. No rales Abdomen: Soft and nontender. No rigidity. No distention. Skin: Skin warm and dry. Normal skin color. Normal skin turgor. Extremities: No lower extremity edema. No Lacerations. No Rash Neuro: Oriented X 3. No motor deficit. No sensory deficit. Moving all extremities. No slurred speech. CN 2 through 12 grossly intact Psych: calm, cooperative, normal affect Course Course Course Narrative: -all of patient's labs pending -care team consult pending Medical Decision Making Medical Decision Making [facility] Narrative: -patient's hemoglobin slightly decreased from previous visit. No chemistry abnormalities. -patient sleeping comfortably. Patient has not given a urinalysis. -care team consult pending -physician observation started at 00:30 Differential Diagnosis Differential Diagnoses: The differential diagnosis associated with the presentation includes (Anxiety, depression, bipolar disorder, psychosis, schizophrenia) Admission/Observation Consideration of admission/observation: Escalation of care including admission/observation considered (Care team consult pending, patient on physician observation) Lab Data [facility] Lab Attestation statement: I reviewed the patient's lab results. 12/12/23 23:40 12/12/23 23:40 Labs: Lab Results 12/12/23 Range/Units 23:40 WBC 8.0 (4.8-10.8) X10*3/uL RBC 4.24 (4.20-5.50) X10*6/uL Hgb 11.5 L (12.0-16.0) g/dl Hct 34.6 L (37.0-47.0) % MCV 81.6 (80.0-98.0) fL MCH 27.1 (27.0-33.0) pg MCHC 33.2 (31.0-35.0) g/dl RDW 13.4 (11.0-16.0) % Plt Count 266 (160-400) X10*3/uL MPV 9.0 L (9.4-12.3) fL Immature Gran % (Auto) 0.3 (0.0-0.4) % Neut % (Auto) 59.2 (45-73) % Lymph % (Auto) 29.3 (20-40) % Dare % (Auto) 8.8 (2-11) % Eos % (Auto) 1.8 (0-4) % Baso % (Auto) 0.6 (0-2) % Lymph # (Auto) 2.3 (1.2-4.9) X10*3/uL Dare # (Auto) 0.7 (0.1-1.2) X10*3/uL Eos # (Auto) 0.1 (0.0-0.4) X10*3/uL Baso # (Auto) 0.1 (0.0-0.2) X10*3/uL Abs Immat Gran (auto) 0.02 (0.00-0.03) X10*3/uL Absolute Neuts (auto) 4.8 (2.0-8.3) x10*3/uL Absolute Nucleated RBC 0.000 (0.0-0.012) X10*3/uL Nucleated RBC % (auto) 0.0 (0.0-0.2) /100WBC Sodium 140 (135-145) mmol/L Potassium 3.8 (3.3-5.1) mmol/L Chloride 106 (96-108) mmol/L Carbon Dioxide 26 (22-29) mmol/L Anion Gap 12 (12-20) BUN 18 H (9-16) mg/dL Creatinine 0.72 (0.5-1.4) mg/dL Estim Creat Clear Calc 57.4 Estimated GFR > 60 Random Glucose 110 (60-115) mg/dL Calcium 9.0 D (8.4-10.2) mg/dL Total Bilirubin 0.2 (0.0-1.0) mg/dL AST 16 (5-31) U/L ALT 20 (0-31) U/L Alkaline Phosphatase 59 (39-117) U/L Total Protein 6.1 L (6.5-8.0) g/dL Albumin 3.6 (3.5-5.0) g/dL Ethyl Alcohol < 10 mg/dL Critical Care Time Critical Care Time Critical Care Time: Yes Total Critical Care Time: 30 Attestation: I have personally provided critical care time. Time includes review of lab data, radiology results, discussion with consultants, and monitoring for potential decompensation. Intervention performed as documented. Discharge Plan Discharge Clinical Impression: Acute anxiety, Hallucinations Patient Disposition: Still a Patient Prescriptions: No Action aspirin 81 mg tablet,delayed release (DR/EC) 81 mg PO DAILY hydroxyzine HCl 25 mg tablet 25 mg PO Q6H PRN (Reason: anxiety) cholecalciferol (vitamin D3) [Vitamin D3] 50 mcg (2,000 unit) Capsule 50 mcg PO DAILY trazodone 50 mg Tablet 50 mg PO BEDTIME PRN (Reason: Insomnia) 30 Days Qty: 30 0RF tetrahydrozoline [Eye Drops (tetrahydrozoline)] 0.05 % Drops 1 drp ophthalmic (eye) QID PRN (Reason: Dry Eyes) 30 Days Qty: 30 0RF risperidone 2 mg Tablet 2 mg PO BEDTIME 30 Days Qty: 30 0RF risperidone 0.5 mg Tablet 0.5 mg PO DAILY 30 Days Qty: 30 0RF polyethylene glycol 3350 17 gram Powder In Packet 17 g PO DAILY 30 Days Qty: 30 0RF sennosides [Senna Lax] 8.6 mg Tablet 17.2 mg PO BEDTIME 30 Days Qty: 60 0RF lidocaine [Lidocaine Pain Relief] 4 % Adhesive Patch,Medicated 1 patch transdermal DAILY 30 Days Qty: 30 0RF Protocol: Apply to: Apply to: lower back Interventions: [place]-Suicide Risk Severity Scale Last Done: 12/12/23 22:21
[2023-12-12 23:45] LABS: MANUAL DIFF FLAG NO
[2023-12-12 23:46] LABS: Basophils Absolute Auto 0.1 X10*3/uL (0.0-0.2); Basophils Percent Auto 0.6 % (0-2); Eosinophils Absolute Auto 0.1 X10*3/uL (0.0-0.4); Eosinophils Percent Auto 1.8 % (0-4); Hematocrit 34.6 % (37.0-47.0); Hemoglobin 11.5 g/dl (12.0-16.0); Imm Gran Abs Auto 0.02 X10*3/uL (0.00-0.03); Imm Gran Pct Auto 0.3 % (0.0-0.4); Lymphocytes Absolute Auto 2.3 X10*3/uL (1.2-4.9); Lymphocytes Percent Auto 29.3 % (20-40); Mean Corpuscular HGB Conc 33.2 g/dl (31.0-35.0); Mean Corpuscular Hemoglobin 27.1 pg (27.0-33.0); Mean Corpuscular Volume 81.6 fL (80.0-98.0); Monocytes Absolute Auto 0.7 X10*3/uL (0.1-1.2); Monocytes Percent Auto 8.8 % (2-11); Neutrophils Absolute Auto 4.8 x10*3/uL (2.0-8.3); Neutrophils Percent Auto 59.2 % (45-73); Platelet Count 266 X10*3/uL (160-400); Red Blood Count 4.24 X10*6/uL (4.20-5.50); Red Cell Distribution Width 13.4 % (11.0-16.0)
[2023-12-13 00:11] LABS: Alanine Aminotransferase 20 U/L (0-31); Albumin Level 3.6 g/dL (3.5-5.0); Alkaline Phosphatase 59 U/L (39-117); Anion Gap 12 (12-20); Aspartate Amino Transferase 16 U/L (5-31); Bilirubin Total 0.2 mg/dL (0.0-1.0); Blood Urea Nitrogen 18 mg/dL (9-16); Carbon Dioxide 26 mmol/L (22-29); Chloride 106 mmol/L (96-108); Creatinine Clr Calc Pharmacy 57.4; Estimated Glomerular Filt Rate > 60; Ethanol < 10 mg/dL; Glucose Random 110 mg/dL (60-115); Potassium 3.8 mmol/L (3.3-5.1); Sodium 140 mmol/L (135-145); Total Protein 6.1 g/dL (6.5-8.0)
--- NOTE | 2023-12-13 01:30 | PC.NURSE ---
pt changed over to hospital clothes on arrival belongings sent home with daughters. 1:1 sitter at bedside. nad. resp even and unlabored.
[2023-12-13 06:21] VITALS: BP 116/73; PULSE 81; RESP 16; TEMP 36.7; O2SAT 97
--- NOTE | 2023-12-13 07:27 | PC.NURSE ---
patient appears to be asleep in bed, respirations equal and unlabored. patient has sitter in place 1:1
--- NOTE | 2023-12-13 09:22 | PC.NURSE ---
patient is awake, respirations equal and unlabored, patient ambulated with steady gait to bathroom. patient given cup for urine sample
--- NOTE | 2023-12-13 09:46 | PC.NURSE ---
patient sat up and ate breakfast, urine sample sent. patient med rec completed with patient. patient has sitter at bedside 1:1
[2023-12-13 10:06] LABS: Amphetamine Screen Urine Not Detected (Not Detect); Barbiturates, Urine Not Detected (Not Detect); Benzodiazepines Screen Urine Not Detected (Not Detect); Cannabinoid Screen Urine Not Detected (Not Detect); Cocaine Screen Urine Not Detected (Not Detect); Fentanyl, urine Not Detected (Not Detect); Opiate Screen Urine Not Detected (Not Detect); Phencyclidine Screen Urine Not Detected (Not Detect)
--- NOTE | 2023-12-13 10:12 | PHA.MEDREC ---
Pharmacy Consult ? Medication Reconciliation Pharmacy has reviewed the medication reconciliation completed by Alycia. patient recently discharge from inpatient [facility] on 12/06. Discharge summary for med rec. Zoraida Watts, KavitaD
[2023-12-13 10:16] LABS: Appearance Urine Clear; Color Urine Yellow; Glucose Urine UA Negative (Negative); Leukocyte Esterase Urine Negative (Negative); Nitrite Urine Negative (Negative); Urine Blood Negative (Negative); Urine Ketones Negative (Negative); Urine Protein Negative (Neg-Trace)
[2023-12-13 10:17] VITALS: BP 115/71; PULSE 77; RESP 16; TEMP 36.8; O2SAT 98
[2023-12-13] MEDS: polyethylene glycoL 3350 17 GM POWD.PACK PO (10:18)
[2023-12-13] MEDS: risperiDONE 0.5 MG TABLET PO (10:18)
[2023-12-13] MEDS: Cholecalciferol (Vitamin D3) 25 MCG TABLET 50 MCG PO (10:18)
[2023-12-13] MEDS: Aspirin Enteric Coated 81 MG TABLET.DR PO (10:18)
[2023-12-13 10:21] LABS: Bacteria Urine None Seen (None Seen); Hyaline Casts Urine 0-2 /LPF (0-2); RBC Urine 0-2 /HPF (0-2); Squamous Epithelial Cell Urine 0-2 /HPF (0-2); WBC Urine 0-5 /HPF (0-5)
[2023-12-13 11:36] VITALS: BP 121/75; PULSE 72; RESP 14; TEMP 36.5; O2SAT 97
--- NOTE | 2023-12-13 13:18 | PC.NURSE ---
patient resting quiet;y in room, coloring in coloring book. has been calm and cooperative. sitter in place 1:1
[2023-12-13] MEDS: Tetrahydrozoline HCl 0.05% Oph 15 ML DRPBTL 1 DROP EYE-BOTH ×2 (14:03→20:15)
--- NOTE | 2023-12-13 14:58 | PC.NURSE ---
[facility] PLACED IN ROOM FOR PATIENT SAFETY
--- NOTE | 2023-12-13 15:11 | PM.PSYCN ---
History of Present Illness Date of Service: 12/13/2023 Chief Complaint: hallucinations Discussed with referring provider: Yes Sources of Information: patient interviewed, chart reviewed and crisis/core team assessment reviewed HPI Narrative: Mrs. Aldrich is a 63 year-old woman recent dx with dementia. It does appear that she has mixed etiology with language impairments in language fluency, comprehension some fluctuation in orientation, impaired recall and executive function. She was recently discharged from after receiving treatment for paranoid delusions towards neighbors which started about one year ago. Pt seen in the ED. She is pleasant. She reports she is here in the hospital because again her neighrbors are trying to harm her. She has not seen them. She denies SI/HI. No combative behaviors. 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 Pt herself is not able to tell this screenplay writer her medical condition. Despite explaining concerns in terms of memory/cognition as evidenced by assessments completed here during last admission, she continues to report she does not have memory problems and does not need further assistance. Past Psychiatric History: [facility] one care: Christina Davis Therapist [facility]: Mani Stoner Prescriber: Arleen Zhou at [facility] Pt does not have hx of psychiatric hospitalizations. [facility] Medical History TIA (transient ischemic attack) Bipolar disorder Family History: Sister: alzheimers Social History: lives alone with her dog in an apartment. . has 3 children. Trauma History: yes Diagnostics Vital Signs (24Hr): Vital Signs - 24 hr 12/12/23 21:49 12/12/23 22:21 12/12/23 22:26 Temperature 98.1 F 97.9 F Pulse Rate 76 75 70 Respiratory Rate 16 16 14 Blood Pressure 136/80 124/77 176/63 H Pulse Oximetry 98 97 98 Oxygen Delivery Method Room Air Room Air Room Air 12/13/23 06:21 12/13/23 10:17 12/13/23 11:36 Temperature 98.1 F 98.2 F 97.7 F Pulse Rate 81 77 72 Respiratory Rate 16 16 14 Blood Pressure 116/73 115/71 121/75 Pulse Oximetry 97 98 97 Oxygen Delivery Method Room Air Room Air Room Air BMI result Body Mass Index 20.3 Labs 12/12/23 23:40 12/12/23 23:40 Labs: Laboratory Results - last 48 hr 12/12/23 12/13/23 12/13/23 23:40 09:44 10:08 WBC 8.0 RBC 4.24 Hgb 11.5 L Hct 34.6 L MCV 81.6 MCH 27.1 MCHC 33.2 RDW 13.4 Plt Count 266 MPV 9.0 L Immature Gran % (Auto) 0.3 Neut % (Auto) 59.2 Lymph % (Auto) 29.3 [place] % (Auto) 8.8 Eos % (Auto) 1.8 Baso % (Auto) 0.6 Lymph # (Auto) 2.3 [place] # (Auto) 0.7 Eos # (Auto) 0.1 Baso # (Auto) 0.1 Abs Immat Gran (auto) 0.02 Absolute Neuts (auto) 4.8 Absolute Nucleated RBC 0.000 Nucleated RBC % (auto) 0.0 Sodium 140 Potassium 3.8 Chloride 106 Carbon Dioxide 26 Anion Gap 12 BUN 18 H Creatinine 0.72 Estim Creat Clear Calc 57.4 Estimated GFR > 60 Random Glucose 110 Calcium 9.0 D Total Bilirubin 0.2 AST 16 ALT 20 Alkaline Phosphatase 59 Total Protein 6.1 L Albumin 3.6 Urine Color Yellow Urine Appearance Clear Urine pH 6.0 Ur Specific [place] 1.020 Urine Protein Negative Urine Glucose (UA) Negative Urine Ketones Negative Urine Blood Negative Urine Nitrite Negative Ur Leukocyte Esterase Negative Urine RBC 0-2 Urine WBC 0-5 Ur Squamous Epith Cells 0-2 Urine Bacteria None Seen Hyaline Casts 0-2 Urine Opiates Screen Not Detected Urine Fentanyl Screen Not Detected Ur Barbiturates Screen Not Detected Ur Phencyclidine Scrn Not Detected Ur Amphetamines Screen Not Detected U Benzodiazepines Scrn Not Detected Urine Cocaine Screen Not Detected U Marijuana (THC) Screen Not Detected Ethyl Alcohol < 10 Mental Status Exam Mental Status Exam Narrative: Appearance: wearing hospital gown, fair hygiene, in NAD Behavior: cooperative Psychomotor: no agitation or retardation noted Speech: mostly clear, regular rate/rhythm/volume, spontaneous TP: focused on neighbors TC: afraid of neighbors Mood: anxious Affect: congruent SI:denies HI: denies VH/AH: none Delusions: paranoid delusions Insight/judgment: impaired x 2. memory/cog: alert, oriented to place, month, situation in the sense that she reports she is here because neighbors are hurting her but no insight into memory impairments and need for assistance in the home Medications Medications Current Medications Aspirin (Aspirin Enteric Coated 81 Mg Tablet.Dr) 81 mg PO DAILY [facility] Last Admin: 12/13/23 10:18 Dose: 81 mg Hydroxyzine HCl (Hydroxyzine Hcl 25 Mg Tablet) 25 mg PO Q6H PRN PRN Reason: anxiety Polyethylene Glycol (Polyethylene Glycol 3350 17 Gm Powd.Pack) 17 gm PO DAILY [facility] Last Admin: 12/13/23 10:18 Dose: 17 gm Risperidone (Risperidone 0.5 Mg Tablet) 0.5 mg PO DAILY [facility] Last Admin: 12/13/23 10:18 Dose: 0.5 mg Risperidone (Risperidone 2 Mg Tablet) 2 mg PO BEDTIME PADDY Senna (Sennosides 8.6 Mg Tablet) 17.2 mg PO BEDTIME PADDY Tetrahydrozoline HCl (Tetrahydrozoline Hcl 0.05% Oph 15 Ml Drpbtl) 1 drop EYE-BOTH QID PRN PRN Reason: Dry Eyes Last Admin: 12/13/23 14:03 Dose: 1 drop Trazodone HCl (Trazodone Hcl 50 Mg Tablet) 50 mg PO BEDTIME PRN PRN Reason: Insomnia Vitamin D (Cholecalciferol (Vitamin D3) 25 Mcg Tablet) 50 mcg PO DAILY [facility] Last Admin: 12/13/23 10:18 Dose: 50 mcg Allergies Allergies Allergy/AdvReac Type Severity Reaction Status Date / Time No Known Allergies Allergy Verified 12/12/23 21:48 Assessment & Plan Assessment & Plan (1) Major neurocognitive disorder: Status: Acute Code(s): F03.90 - Unspecified dementia, unspecified severity, without behavioral disturbance, psychotic disturbance, mood disturbance, and anxiety Plan Mrs. Aldrich is a 63 year-old woman recently dx with dementia who shows significant difficulty comprehending more complex information regarding her care. She is not able to show understanding of medical conditions including recent dx of dementia and instead she reports this is a lie. She presents with paranoid towards neighbors but is not aggressive. She denies SI/HI. PLAN 1. Pt does not have capacity to make medical decisions. Recommend invoking HCP 2. Complete ACL, if not done recently to determine level of support she needs to live safely in the community. 3. No need for inpt admission- at this point concern is more with her ability to care for herself. 4. continue risperidone 5. can consider starting aricept 5mg po qhs- slow down progression of dementia. Total time managing care of this patient today ____ minutes.
[2023-12-13 18:14] VITALS: BP 129/73; PULSE 76; RESP 14; O2SAT 96
--- NOTE | 2023-12-13 18:36 | PC.NURSE ---
patient is case management, being moved to overflow. report given to Danelle LACKEY.
--- NOTE | 2023-12-13 18:40 | MHC.CARE ---
Ana Antoine met with pt and spoke with daughter, please refer to note for recommendations. Per Ana, pt should be referred to case management
[2023-12-13] MEDS: Sennosides 8.6 MG TABLET 17.2 MG PO (20:15)
[2023-12-13] MEDS: risperiDONE 2 MG TABLET PO (20:15)
[2023-12-13 21:57] VITALS: BP 126/70; PULSE 87; RESP 14; TEMP 36.5; O2SAT 95
[2023-12-14 06:16] VITALS: BP 136/72; PULSE 75; RESP 16; TEMP 36; O2SAT 98
--- NOTE | 2023-12-14 08:06 | MHC.EDTECH ---
patient was assisted in brushing her teeth and is eating breakfast now.
--- NOTE | 2023-12-14 08:13 | MHC.EDTECH ---
patient ate 75 percent of her breakfast
[2023-12-14] MEDS: risperiDONE 0.5 MG TABLET PO (08:45)
[2023-12-14] MEDS: Cholecalciferol (Vitamin D3) 25 MCG TABLET 50 MCG PO (08:45)
[2023-12-14] MEDS: polyethylene glycoL 3350 17 GM POWD.PACK PO (08:45)
[2023-12-14] MEDS: Aspirin Enteric Coated 81 MG TABLET.DR PO (08:45)
[2023-12-14] MEDS: Tetrahydrozoline HCl 0.05% Oph 15 ML DRPBTL 1 DROP EYE-BOTH (08:47)
--- NOTE | 2023-12-14 10:16 | PC.NURSE ---
Lily had an uneventful morning she work. She was A&O x1 -self. Voiced no complaints. Ambulated to the bathroom w/ standby assist. Pt had most of her breakfast and morning meds.
--- NOTE | 2023-12-14 12:45 | MHC.EDTECH ---
patient ate 50 percent of her lunch
--- NOTE | 2023-12-14 13:15 | MHC.EDTECH ---
patient wanted to shower the nurse said it was okay after speaking with them. patient showered with set up and standby assistance and had a complete bed change
[2023-12-14 13:56] VITALS: BP 123/80; PULSE 98; RESP 18; TEMP 36.4; O2SAT 98
--- NOTE | 2023-12-14 16:45 | PC.NURSE ---
pt ambulating in milieu on the phone. no distress noted. calm, coop.
[2023-12-14] MEDS: Sennosides 8.6 MG TABLET 17.2 MG PO (20:23)
[2023-12-14] MEDS: risperiDONE 2 MG TABLET PO (20:24)
[2023-12-14 21:08] VITALS: BP 126/95; PULSE 81; RESP 16; TEMP 36.5; O2SAT 97
[2023-12-14] MEDS: traZODone HCL 50 MG TABLET PO (23:28)
[2023-12-15 04:14] VITALS: BP 139/65; PULSE 84; RESP 16; TEMP 36.4; O2SAT 98
--- NOTE | 2023-12-15 08:27 | MHC.EDTECH ---
pt ate 100% of her breakfast 240cc of fluids. Pt also walked to the bathroom and brushed her teeth.
[2023-12-15 08:45] VITALS: BP 110/70; PULSE 85; RESP 17; TEMP 36.2; O2SAT 97
[2023-12-15] MEDS: Cholecalciferol (Vitamin D3) 25 MCG TABLET 50 MCG PO (08:48)
[2023-12-15] MEDS: polyethylene glycoL 3350 17 GM POWD.PACK PO (08:48)
[2023-12-15] MEDS: Aspirin Enteric Coated 81 MG TABLET.DR PO (08:48)
[2023-12-15] MEDS: risperiDONE 0.5 MG TABLET PO (08:48)
--- NOTE | 2023-12-15 10:45 | MHC.CM.ED ---
Addendum entered by Sandra Villela 12/15/23 12:25: Lily will be at [facility] tomorrow at 11am to transport patient home. Patient, Wendy LACKEY and Allyssa WESLEY aware. Original Note: Received case management consult overnight. Patient came to the ER on 12/11 due to hallucinations. Patient was cleared by Care Team on 12/13. Per Ana, carton making machine operator, patient does not have the capacity to make medical decisions. Dr Zelaya made aware and asked to invoke HCP. T/W spoke with patient's daughter/HCP, Lily via telephone at [phone] to discuss discharge planning. [facility] is not interested in SNF placement at this time. Patient [address] in [address] Lily is trying to get permission from [address] [employer] for an overnight [employer]. Lily is also in the process of obtaining more care for her mother. Lily agreeable to patient staying overnight and returning home tomorrow. Continue to monitor for d/c needs.
--- NOTE | 2023-12-15 10:58 | PC.NURSE ---
Assumed care at 0700. Pt up to bathroom independently, gait steady. Morning care done, pt ate 100% of her breakfast. Meds given as documented.
--- NOTE | 2023-12-15 13:04 | PC.NURSE ---
Per update from ZIYAD Floreshearing dog trainer, the plan is for pt to go home with her daughter tomorrow.
[2023-12-15 13:40] VITALS: BP 132/73; PULSE 82; RESP 16; TEMP 36.9; O2SAT 98
[2023-12-15 19:38] VITALS: BP 129/78; PULSE 85; RESP 16; TEMP 36.2; O2SAT 96
--- NOTE | 2023-12-15 20:03 | MHC.EDTECH ---
assisted patient with a shower, patient did not want a bed change
[2023-12-15] MEDS: Sennosides 8.6 MG TABLET 17.2 MG PO (20:13)
[2023-12-15] MEDS: risperiDONE 2 MG TABLET PO (20:13)
[2023-12-15] MEDS: Tetrahydrozoline HCl 0.05% Oph 15 ML DRPBTL 1 DROP EYE-BOTH (21:05)
--- NOTE | 2023-12-16 00:30 | PC.NURSE ---
This underwriter solicitation director assumed care of this Pt at this time. Pt appears to be sleeping, equal, non labored respirations, no apparent distress. Plan of care on going.
[2023-12-16 03:16] VITALS: RESP 16
[2023-12-16 06:13] VITALS: BP 124/74; PULSE 78; RESP 12; TEMP 36.9; O2SAT 96
--- NOTE | 2023-12-16 07:56 | MHC.EDTECH ---
patient brushed teeth
[2023-12-16] MEDS: Cholecalciferol (Vitamin D3) 25 MCG TABLET 50 MCG PO (08:13)
[2023-12-16] MEDS: Aspirin Enteric Coated 81 MG TABLET.DR PO (08:13)
[2023-12-16] MEDS: risperiDONE 0.5 MG TABLET PO (08:14)
[2023-12-16] MEDS: polyethylene glycoL 3350 17 GM POWD.PACK PO (08:14)
--- NOTE | 2023-12-16 08:28 | MHC.EDTECH ---
patient ate 100% breakfast was offered to wash up and pt stated she already did last night and told her if she wants to freshen up Im here to help.
[2023-12-16 09:03] VITALS: BP 109/67; PULSE 102; RESP 16; TEMP 36.6; O2SAT 98
--- NOTE | 2023-12-16 09:03 | PC.NURSE ---
patient sat up and ate breakfast, medicated per NOV, patient is alert and orientedx3, patient respirations equal and unlabored, skin dry and intact., VSS. plan for family to flower picker patient for d/c at 11 am
[2023-12-16] MEDS: Tetrahydrozoline HCl 0.05% Oph 15 ML DRPBTL 1 DROP EYE-BOTH (09:40)
--- NOTE | 2023-12-16 09:41 | PC.NURSE ---
patient requested eye drops, medicated per NOV. eye drops placed back in patient specific bin
== END 2023-12-16 12:00 | disposition home or self-care (01) ==
PROVIDERS: Emergency Provider Emergency Medicine; PCP Physician Assistant
DX: F03.90 Unspecified dementia, unspecified severity, without behavioral disturbance, psychotic disturbance, mood disturbance, and anxiety (principal); F41.9 Anxiety disorder, unspecified; R44.3 Hallucinations, unspecified; F99 Mental disorder, not otherwise specified; Z79.899 Other long term (current) drug therapy
CPT/HCPCS: 36415; 80053; 80307; 81001; 85025; 99285; S9485

== ENCOUNTER → 2023-12-12 22:50 | Outpatient (BNV) | payer OTHER, SELFPAY | PROVIDERS: Emergency Provider Emergency Medicine; Visit Provider Social Worker | DX: F03.90 Unspecified dementia, unspecified severity, without behavioral disturbance, psychotic disturbance, mood disturbance, and anxiety (principal) | CPT/HCPCS: 99285 ==